=== PATIENT | female | born 1980 | race African-American/Black ===

== ENCOUNTER 2018-11-01 04:20 | Emergency (ER) | payer OTHER ==
[~2018-11-01] VITALS: Ht 167.6 cm; Wt 61.4 kg
[~2018-11-01 04:20] MED LIST: BACT800T5 PO; WOMETAB4 PO
[2018-11-01 06:43] LABS: BASO % 0.5 % (0.0-1.0); EOS # 0.1 10^3/uL (0.0-0.50); EOS % 1.5 % (0.0-3.0); HEMATOCRIT 36.1 % (36.0-47.0); HEMOGLOBIN 11.8 g/dl (12.0-15.5); LYMPH # 1.7 10^3/uL (1.5-4.5); LYMPH % 27.7 % (24.0-44.0); MEAN CORPUSCULAR HEMOGLOBIN 29.9 pg (27.0-33.0); MEAN CORPUSCULAR HGB CONC 32.7 g/dl (32.0-36.5); MEAN CORPUSCULAR VOLUME 91.6 fl (80.0-96.0); MONO # 0.5 10^3/uL (0.0-0.8); MONO % 8.2 % (0.0-5.0); NEUTROPHILS # 3.7 10^3/uL (1.8-7.7); NEUTROPHILS % 61.8 % (36.0-66.0); PLATELET COUNT, AUTOMATED 242 10^3/uL (150-450); RED BLOOD COUNT 3.94 10^6/uL (4.00-5.40)
[2018-11-01] MEDS ORDERED: NS 1,000 ML IV ONE (06:45)
[2018-11-01 07:10] LABS: HCG, SERUM QUALITATIVE NEGATIVE (NEGATIVE)
[2018-11-01 07:17] LABS: BLOOD UREA NITROGEN 11 MG/DL (7-18); CALCIUM LEVEL 9.1 MG/DL (8.5-10.1); CARBON DIOXIDE LEVEL 28 MEQ/L (21-32); CHLORIDE LEVEL 101 MEQ/L (98-107); CREATININE FOR GFR 1.07 MG/DL (0.55-1.30); FREE T4 1.07 NG/DL (0.76-1.46); GLOMERULAR FILTRATION RATE > 60.0 (>60); GLUCOSE, FASTING 101 MG/DL (70-100); POTASSIUM SERUM 3.6 MEQ/L (3.5-5.1); SODIUM LEVEL 137 MEQ/L (136-145)
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
[2018-11-01 08:28] LABS: AMPHETAMINES LEVEL URINE NEGATIVE (NEGATIVE); BARBITURATES URINE NEGATIVE (NEGATIVE); BENZODIAZEPINES URINE NEGATIVE (NEGATIVE); CANNABINOIDS URINE NEGATIVE (NEGATIVE); COCAINE METABOLITE URINE POSITIVE (NEGATIVE); METHADONE URINE NEGATIVE (NEGATIVE); OPIATES URINE NEGATIVE (NEGATIVE); PHENCYCLIDINE URINE NEGATIVE (NEGATIVE)
[2018-11-01 08:36] VITALS: BP 102/68
--- NOTE | 2018-11-01 11:29 | ECGEPIP ---
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
--- NOTE | 2018-11-01 12:55 | REP ---
Chest x-ray: Two views. History: Syncope . Comparison study: September 10, 2014 . Findings: The lungs are well inflated and free of infiltrate. The pleural angles are sharp. The heart size is normal. Pulmonary vasculature is not increased. No significant bony abnormality is seen. Impression: Negative chest x-ray. Electronically Signed by Quinn Brooks MD 11/01/2018 07:31 A
== END 2018-11-01 08:38 | disposition home or self-care (01) ==
LOC: M ED 04:20
DX: R55 Syncope and collapse (principal); Z91.018 Allergy to other foods; Z91.040 Latex allergy status

== ENCOUNTER 2020-01-01 06:34 | Day surgery (SDC) | payer OTHER ==
[2020-01-01] VITALS (8 sets, daily range): BP systolic 102–118; BP diastolic 58–75
[~2020-01-01] VITALS: Ht 167.6 cm; Wt 60.2 kg
[2020-01-01 06:50] LABS: BASO % 0.7 % (0.0-1.0); EOS # 0.2 10^3/uL (0.0-0.5); EOS % 4.5 % (0.0-3.0); HEMATOCRIT 31.5 % (36.0-47.0); HEMOGLOBIN 10.5 g/dl (12.0-15.5); LYMPH # 1.1 10^3/uL (1.5-5.0); LYMPH % 24.2 % (24.0-44.0); MEAN CORPUSCULAR HGB CONC 33.3 g/dl (32.0-36.5); MONO # 0.9 10^3/uL (0.0-0.8); MONO % 19.7 % (0.0-5.0); NEUTROPHILS # 2.3 10^3/uL (1.5-8.5); NEUTROPHILS % 50.7 % (36.0-66.0); PLATELET COUNT, AUTOMATED 305 10^3/uL (150-450); WHITE BLOOD COUNT 4.5 10^3/uL (4.0-10.0)
[2020-01-01 07:06] LABS: INR 1.05; PARTIAL THROMBOPLASTIN TIME 26.3 SECONDS (25.0-38.4); PROTHROMBIN TIME 13.4 SECONDS (11.8-14.0)
[2020-01-01] MEDS ORDERED: MIDAZOLAM INJ 2 MG/2 ML VIAL (J2250) As Ordered ONE (07:21)
[2020-01-01] MEDS ORDERED: ONDANSETRON 4MG/2ML VIAL (J2405) As Ordered ONE ×2 (07:21→08:37)
[2020-01-01] MEDS ORDERED: MORPHINE 4 MG/ML 1ML VIAL/SYRINGE (J2270) As Ordered ONE (07:21)
[2020-01-01 07:23] LABS: HCG, SERUM QUALITATIVE NEGATIVE (NEGATIVE)
[2020-01-01 07:27] LABS: ALBUMIN 3.7 GM/DL (3.2-5.2); ALT/SGPT 20 U/L (12-78); BILIRUBIN,DIRECT < 0.1 MG/DL (0.0-0.2); BILIRUBIN,TOTAL 0.2 MG/DL (0.2-1.0); BLOOD UREA NITROGEN 13 MG/DL (7-18); CALCIUM LEVEL 8.6 MG/DL (8.5-10.1); CARBON DIOXIDE LEVEL 28 MEQ/L (21-32); CHLORIDE LEVEL 105 MEQ/L (98-107); CREATININE FOR GFR 1.02 MG/DL (0.55-1.30); GLOMERULAR FILTRATION RATE > 60.0 (>60); GLUCOSE, FASTING 99 MG/DL (70-100); POTASSIUM SERUM 4.1 MEQ/L (3.5-5.1); SODIUM LEVEL 139 MEQ/L (136-145); TOTAL PROTEIN 7.8 GM/DL (6.4-8.2)
[2020-01-01] MEDS ORDERED: ISOVUE-370 76% 100ML VIAL (Q9967) As Ordered ONE (07:29)
[2020-01-01] MEDS ORDERED: ONDANSETRON 4MG/2ML VIAL (J2405) IV ONE (07:30)
[2020-01-01] MEDS ORDERED: MORPHINE 4 MG/ML 1ML VIAL/SYRINGE (J2270) IV ONE (07:30)
--- NOTE | 2020-01-01 07:42 | REP ---
Portable chest, 07:19 a.m., single AP view with the patient semi upright: Comparison is the PA and lateral chest dated 11/01/2018. The lung granados are clear. The cardiac size is normal. The low, mediastinum, and skeletal structures are unremarkable. Impression: Negative portable chest. There is no interval change. Electronically Signed by Ernesto Eng MD 01/01/2020 07:32 A
[2020-01-01] MEDS ORDERED: ceFAZolin 1GM INJ (J0690 PER 500MG) As Ordered ONE (07:55)
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
[2020-01-01] MEDS ORDERED: LIDOCAINE W/EPINEPHRINE 1% 20ML VIAL As Ordered ONE (08:19)
[2020-01-01] MEDS ORDERED: BUPIVACAINE LIPOSOME/PF 1.3% 20ML VIAL (13.3MG/ML)(EXPAREL)(C9290 PER1MG) As Ordered ONE (08:19)
[2020-01-01] MEDS ORDERED: PHENYLEPHRINE INJ 10MG/ML VIAL (J2370) As Ordered ONE (08:20)
[2020-01-01] MEDS ORDERED: SUGAMMADEX SODIUM 500 MG/5 ML VIAL (BRIDION) As Ordered ONE (08:31)
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
[2020-01-01] MEDS ORDERED: LIDOCAINE 2% INJ 100 MG/5 ML SDV (FOR ANES.) As Ordered ONE (08:37)
[2020-01-01] MEDS ORDERED: propofoL 200 MG/20 ML VIAL As Ordered ONE (08:37)
[2020-01-01] MEDS ORDERED: dexameTHASONE 4 MG/ML 1ML VIAL (J1100) As Ordered ONE (08:37)
[2020-01-01] MEDS ORDERED: ROCURONIUM BROMIDE 50 MG/5 ML VIAL As Ordered ONE (08:37)
[2020-01-01] MEDS ORDERED: HYDROmorphone HCL 2 MG/ML 1ML VIAL (J1170) As Ordered ONE (08:42)
[2020-01-01] MEDS ORDERED: ONDANSETRON 4MG/2ML VIAL (J2405) IV PRN ×2 (08:45→09:45)
[2020-01-01] MEDS ORDERED: ULTRACET TAB PO PRN (08:45)
[2020-01-01] MEDS ORDERED: traMADol 50 MG TAB PO PRN (08:45)
[2020-01-01] MEDS ORDERED: fentaNYL 250 MCG/5 ML INJECTION (J3010) As Ordered ONE (08:50)
[2020-01-01] MEDS ORDERED: ESMOLOL INJ 100MG/10ML VIAL As Ordered ONE (08:59)
[2020-01-01] MEDS: ceFAZolin SOD 1 GM in D5W MINI-BAG PLUS 50 ML IV SCH ×2 (09:00→16:31)
[2020-01-01 09:38] LABS: ABG BASE EXCESS -4.9 (-2.0-2.0); ABG HCO3 22.6 MEQ/L (22.0-26.0); ABG O2 LITER FLOW 10; ABG O2 SATURATION 99.4 % (95.0-99.0); ABG PARTIAL PRESSURE O2 370.6 mmHg (75.0-100.0); ABG PATIENT RESP RATE 16 /MIN; ABG SITE ART LINE; ABG STANDARD HCO3 20.5 MEQ/L (22.0-26.0); ABG TOTAL CO2 24.2 MEQ/L (22.0-29.0); ABG pH (ARTERIAL) 7.247 UNITS (7.350-7.450)
[2020-01-01] MEDS ORDERED: LR 1,000 ML IV SCH (09:45)
[2020-01-01] MEDS ORDERED: fentaNYL 100 MCG/2 ML INJECTION (J3010) IV PRN (09:45)
[2020-01-01] MEDS ORDERED: oxyCODONE 5MG TAB PO PRN (09:45)
[2020-01-01] MEDS ORDERED: HYDROMORPHONE HCL 0.5 MG/ 0.5 ML SYRINGE (J1170 PER 1) IV PRN (09:45)
[2020-01-01 09:48] LABS: HEMATOCRIT 30.2 % (36.0-47.0); HEMOGLOBIN 9.9 g/dl (12.0-15.5); MEAN CORPUSCULAR HEMOGLOBIN 29.9 pg (27.0-33.0); MEAN CORPUSCULAR HGB CONC 32.8 g/dl (32.0-36.5); MEAN CORPUSCULAR VOLUME 91.2 fl (80.0-96.0); PLATELET COUNT, AUTOMATED 218 10^3/uL (150-450); RED BLOOD COUNT 3.31 10^6/uL (4.00-5.40); WHITE BLOOD COUNT 6.2 10^3/uL (4.0-10.0)
[2020-01-01] MEDS ORDERED: SODIUM BICARBONATE 8.4% INJ 50 ML SYRINGE IV ONE (10:15)
[2020-01-01] MEDS: KETOROLAC 30 MG/ML VIAL (J1885) IV SCH ×3 (10:30→20:00)
[2020-01-01] MEDS: POLYTRIM OPTH DROPS 10ML OS SCH ×5 (12:00→22:29)
[2020-01-01] MEDS: PANTOPRAZOLE 40MG INJ (PROTONIX) (C9113) IV SCH (12:25)
[2020-01-01] MEDS: D5W/LR 1,000 ML IV SCH ×2 (12:25→18:40)
[2020-01-01] MEDS: NORCO, ANEXSIA 5/325MG TABLET (HYDROcodone/ACETAMINOPHEN) PO PRN ×2 (13:21→19:57)
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
[2020-01-02] VITALS (7 sets, daily range): BP systolic 105–134; BP diastolic 61–93
[2020-01-02] MEDS: ceFAZolin SOD 1 GM in D5W MINI-BAG PLUS 50 ML IV SCH ×3 (01:01→16:30)
[2020-01-02] MEDS: D5W/LR 1,000 ML IV SCH ×2 (01:01→08:41)
[2020-01-02] MEDS: KETOROLAC 30 MG/ML VIAL (J1885) IV SCH ×4 (03:19→21:55)
[2020-01-02] MEDS: NORCO, ANEXSIA 5/325MG TABLET (HYDROcodone/ACETAMINOPHEN) PO PRN ×3 (05:06→23:29)
[2020-01-02] MEDS: POLYTRIM OPTH DROPS 10ML OS SCH ×6 (05:47→21:56)
[2020-01-02 06:06] LABS: HEMATOCRIT 28.3 % (36.0-47.0); HEMOGLOBIN 9.3 g/dl (12.0-15.5); MEAN CORPUSCULAR HEMOGLOBIN 29.6 pg (27.0-33.0); MEAN CORPUSCULAR HGB CONC 32.9 g/dl (32.0-36.5); MEAN CORPUSCULAR VOLUME 90.1 fl (80.0-96.0); PLATELET COUNT, AUTOMATED 224 10^3/uL (150-450); RED BLOOD COUNT 3.14 10^6/uL (4.00-5.40); WHITE BLOOD COUNT 5.2 10^3/uL (4.0-10.0)
[2020-01-02 06:26] LABS: BLOOD UREA NITROGEN 10 MG/DL (7-18); CALCIUM LEVEL 7.9 MG/DL (8.5-10.1); CARBON DIOXIDE LEVEL 26 MEQ/L (21-32); CHLORIDE LEVEL 112 MEQ/L (98-107); CREATININE FOR GFR 0.82 MG/DL (0.55-1.30); GLOMERULAR FILTRATION RATE > 60.0 (>60); GLUCOSE, FASTING 129 MG/DL (70-100); POTASSIUM SERUM 3.2 MEQ/L (3.5-5.1); SODIUM LEVEL 143 MEQ/L (136-145)
[2020-01-02] MEDS: PANTOPRAZOLE 40MG INJ (PROTONIX) (C9113) IV SCH (08:41)
[2020-01-02] MEDS ORDERED: POTASSIUM CHLORIDE 10 MEQ SR TABLET PO ONE (09:30)
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
--- NOTE | 2020-01-02 11:06 | IPN ---
DATE: 01/02/2020 The patient seems to be doing well overnight. From her standpoint, she has not had any bleeding from the incision site. Her pain has been well-controlled with minimal pain medication. Overall, she has had some minimal discomfort at the trocar site and this was the only site that I did not place some Exparel around, just around the right flank area. In any case, the patient has been tolerating a regular diet, has been up out of bed and using the bathroom. She does have treatment for her conjunctivitis/left eye infection, that she stated feels a lot better than it was. In any case, she put a bandage over the area so she would not poke at the eye or rub the eye, but otherwise seems to be making some good progress. From a general surgery standpoint, I do feel that it is reasonable that she could be discharged when she has an available person at home to just assist her with the daily activities of living for the next couple days and will see if that will be later on today or it may actually be tomorrow. In any case, will try arrange for her discharge as soon as possible. I do not feel that she needs to continue on antibiotics after discharge. She will otherwise continue on minimal pain medications on discharge with some Aleve and [place].
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
[2020-01-02] MEDS ORDERED: guaiFENesin DM LIQ 10ML UD PO PRN (16:15)
[2020-01-02] MEDS: IPRATROPIUM 0.5MG/ALBUTEROL 2.5MG INH SOL UD 3ML (DUONEB)(J7620) NEB SCH ×2 (17:11→20:07)
[2020-01-03] MEDS: ceFAZolin SOD 1 GM in D5W MINI-BAG PLUS 50 ML IV SCH ×3 (01:04→16:47)
[2020-01-03 02:00] VITALS: BP 117/79
[2020-01-03] MEDS: KETOROLAC 30 MG/ML VIAL (J1885) IV SCH ×4 (03:32→21:43)
[2020-01-03] MEDS ORDERED: ACETAMINOPHEN 500 MG TAB PO ONE (04:00)
[2020-01-03 05:37] LABS: HEMATOCRIT 29.8 % (36.0-47.0); HEMOGLOBIN 9.7 g/dl (12.0-15.5); MEAN CORPUSCULAR HEMOGLOBIN 30.1 pg (27.0-33.0); MEAN CORPUSCULAR HGB CONC 32.6 g/dl (32.0-36.5); MEAN CORPUSCULAR VOLUME 92.5 fl (80.0-96.0); PLATELET COUNT, AUTOMATED 211 10^3/uL (150-450); RED BLOOD COUNT 3.22 10^6/uL (4.00-5.40); WHITE BLOOD COUNT 5.4 10^3/uL (4.0-10.0)
[2020-01-03 06:00] VITALS: BP 107/69
[2020-01-03 06:05] LABS: ALBUMIN 2.7 GM/DL (3.2-5.2); ALT/SGPT 13 U/L (12-78); BILIRUBIN,TOTAL 0.2 MG/DL (0.2-1.0); BLOOD UREA NITROGEN 6 MG/DL (7-18); CALCIUM LEVEL 8.1 MG/DL (8.5-10.1); CARBON DIOXIDE LEVEL 28 MEQ/L (21-32); CHLORIDE LEVEL 104 MEQ/L (98-107); CREATININE FOR GFR 0.87 MG/DL (0.55-1.30); GLOMERULAR FILTRATION RATE > 60.0 (>60); GLUCOSE, FASTING 92 MG/DL (70-100); POTASSIUM SERUM 3.8 MEQ/L (3.5-5.1); SODIUM LEVEL 137 MEQ/L (136-145)
[2020-01-03] MEDS: POLYTRIM OPTH DROPS 10ML OS SCH ×6 (06:18→21:44)
[2020-01-03] MEDS: IPRATROPIUM 0.5MG/ALBUTEROL 2.5MG INH SOL UD 3ML (DUONEB)(J7620) NEB SCH ×4 (09:15→20:02)
[2020-01-03] MEDS: PANTOPRAZOLE 40MG INJ (PROTONIX) (C9113) IV SCH (09:41)
[2020-01-03] MEDS: GASTROGRAFIN SOLUTION 30ML PO SCH ×2 (09:41→10:49)
--- NOTE | 2020-01-03 09:54 | REP ---
CHEST: Two views. There is no evidence of acute infiltrate. No pleural effusion is seen. The heart is normal in size. The mediastinal silhouette is unremarkable. The visualized osseous structures are intact. IMPRESSION: No acute pulmonary disease. Electronically Signed by Ernesto Barrios MD 01/03/2020 06:35 P
[2020-01-03 10:00] VITALS: BP 111/73
[2020-01-03] MEDS ORDERED: ISOVUE-370 76% 100ML VIAL (Q9967) As Ordered ONE (11:44)
[2020-01-03 14:00] VITALS: BP 113/75
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
[2020-01-03] MEDS: NORCO, ANEXSIA 5/325MG TABLET (HYDROcodone/ACETAMINOPHEN) PO PRN (18:09)
[2020-01-03 22:00] VITALS: BP 108/70
[2020-01-04] MEDS: ceFAZolin SOD 1 GM in D5W MINI-BAG PLUS 50 ML IV SCH ×2 (00:55→08:46)
[2020-01-04 02:00] VITALS: BP 118/83
[2020-01-04] MEDS: NORCO, ANEXSIA 5/325MG TABLET (HYDROcodone/ACETAMINOPHEN) PO PRN (02:27)
[2020-01-04] MEDS: KETOROLAC 30 MG/ML VIAL (J1885) IV SCH ×3 (03:43→15:00)
[2020-01-04 06:00] VITALS: BP 121/83
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
[2020-01-04] MEDS: POLYTRIM OPTH DROPS 10ML OS SCH ×4 (06:42→15:50)
[2020-01-04] MEDS: IPRATROPIUM 0.5MG/ALBUTEROL 2.5MG INH SOL UD 3ML (DUONEB)(J7620) NEB SCH ×2 (07:43→11:45)
[2020-01-04] MEDS: PANTOPRAZOLE 40MG INJ (PROTONIX) (C9113) IV SCH (08:45)
[2020-01-04 10:00] VITALS: BP 118/79
[2020-01-04] MEDS ORDERED: IBUP-1022 PO (10:24)
[2020-01-04] MEDS ORDERED: TRAM37.53 PO (10:24)
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
== END 2020-01-04 16:06 | disposition home or self-care (01) ==
LOC: M ED 06:34 → M SDC 06:35 → M ED 08:01 → M PCU 11:54 → M MSPAV 01-02 11:10 → M SDC 01-04 16:06
PROVIDERS: ATTEND Surgery
DX: S31.619A Laceration without foreign body of abdominal wall, unspecified quadrant with penetration into peritoneal cavity, initial encounter (principal); T79.4XXA Traumatic shock, initial encounter; X99.1XXA Assault by knife, initial encounter; Y93.9 Activity, unspecified; Y99.9 Unspecified external cause status; Z91.040 Latex allergy status; Z91.010 Allergy to peanuts; Y92.89 Other specified places as the place of occurrence of the external cause
CPT/HCPCS: 20102; 36415; 49320; 71045; 71046; 80048; 80053; 80076; 81001; 82330; 82803; 82947; 84132; 84295; 84702; 84703; 85014; 85025; 85027; 85610; 85730; 86850; 86900; 86901; 86920; 94640; 96361; 96365; 96366; 96375; 96376; 99284; C9113; C9290; J0690; J1100; J1170; J1885; J2250; J2270; J2370; J2405; J3010; Q9963; Q9967

== ENCOUNTER 2020-01-23 05:14 | Emergency (ER) | payer OTHER ==
[~2020-01-23] VITALS: Ht 167.6 cm; Wt 60.1 kg
[~2020-01-23 05:14] MED LIST changes: +IBUP-1022 PO; +TRAM37.53 PO
[2020-01-23 05:42] LABS: BASO % 0.4 % (0.0-1.0); EOS # 0.2 10^3/uL (0.0-0.5); EOS % 3.2 % (0.0-3.0); HEMATOCRIT 33.2 % (36.0-47.0); HEMOGLOBIN 10.8 g/dl (12.0-15.5); LYMPH # 1.8 10^3/uL (1.5-5.0); LYMPH % 26.7 % (24.0-44.0); MEAN CORPUSCULAR HEMOGLOBIN 29.8 pg (27.0-33.0); MEAN CORPUSCULAR HGB CONC 32.5 g/dl (32.0-36.5); MEAN CORPUSCULAR VOLUME 91.7 fl (80.0-96.0); MONO # 0.8 10^3/uL (0.0-0.8); MONO % 11.8 % (0.0-5.0); NEUTROPHILS # 3.9 10^3/uL (1.5-8.5); NEUTROPHILS % 57.3 % (36.0-66.0); PLATELET COUNT, AUTOMATED 309 10^3/uL (150-450); RED BLOOD COUNT 3.62 10^6/uL (4.00-5.40); WHITE BLOOD COUNT 6.8 10^3/uL (4.0-10.0)
[2020-01-23] MEDS ORDERED: NS 1,000 ML IV ONE ×2 (05:45→07:15)
--- NOTE | 2020-01-23 05:57 | REPVR ---
PROCEDURE INFORMATION: Exam: CT Head Without Contrast Exam date and time: 01/23/2020 5:35 AM Age: 39 years old Clinical indication: Altered mental status/memory loss; Other: Od; Additional info: AMS TECHNIQUE: Imaging protocol: Computed tomography of the head without contrast. Radiation optimization: All CT scans at this facility use at least one of these dose optimization techniques: automated exposure control; mA and/or kV adjustment per patient size (includes targeted exams where dose is matched to clinical indication); or iterative reconstruction. COMPARISON: CT Head without contrast 11/01/2018 7:08 AM FINDINGS: Brain: Minimal right basal ganglia calcification. Ventricles: Normal. No ventriculomegaly. Bones/joints: Unremarkable. No acute fracture. Sinuses: Visualized sinuses are unremarkable. No fluid levels. Mastoid air cells: Visualized mastoid air cells are well aerated. Soft tissues: Unremarkable. IMPRESSION: Negative noncontrast head CT without change from 11/01/2018. Electronically signed by: Sergio Chu On 01/23/2020 05:56:57 AM
--- NOTE | 2020-01-23 05:59 | REPVR ---
PROCEDURE INFORMATION: Exam: CT Cervical Spine Without Contrast Exam date and time: 01/23/2020 5:35 AM Age: 39 years old Clinical indication: Other: Od AMS TECHNIQUE: Imaging protocol: Computed tomography images of the cervical spine without contrast. Radiation optimization: All CT scans at this facility use at least one of these dose optimization techniques: automated exposure control; mA and/or kV adjustment per patient size (includes targeted exams where dose is matched to clinical indication); or iterative reconstruction. COMPARISON: CT Spine,cervical w/o contrast 11/01/2018 7:08 AM FINDINGS: Vertebrae: No acute fracture. Normal alignment. Discs/Spinal canal/Neural foramina: No disc herniations. No spinal canal stenosis. No neural foraminal narrowing. Soft tissues: Unremarkable. Lungs: Lung apices are normal. IMPRESSION: Negative CT cervical spine with little change from 11/01/2018. No fracture or subluxation is evident and no spinal or foraminal stenosis. Electronically signed by: Sergio Chu On 01/23/2020 05:58:45 AM
[2020-01-23 06:03] LABS: ALT/SGPT 62 U/L (12-78); BILIRUBIN,DIRECT 0.2 MG/DL (0.0-0.2); BILIRUBIN,TOTAL 0.4 MG/DL (0.2-1.0); BLOOD UREA NITROGEN 11 MG/DL (7-18); CALCIUM LEVEL 8.7 MG/DL (8.5-10.1); CARBON DIOXIDE LEVEL 24 MEQ/L (21-32); CHLORIDE LEVEL 107 MEQ/L (98-107); CK-MB VALUE MASS 1.1 NG/ML (<3.6); CPK CREATINE PHOSPHOKINASE 315 U/L (26-192); ETHYL ALCOHOL (ETHANOL) < 0.003 % (0.000-0.010); GLOMERULAR FILTRATION RATE > 60.0 (>60); GLUCOSE, FASTING 78 MG/DL (70-100); MB/CK RELATIVE INDEX 0.35 (< OR =4); POTASSIUM SERUM 3.6 MEQ/L (3.5-5.1); SODIUM LEVEL 140 MEQ/L (136-145); TOTAL PROTEIN 7.7 GM/DL (6.4-8.2); TROPONIN I < 0.02 NG/ML (< 0.10)
[2020-01-23 07:08] LABS: AMPHETAMINES LEVEL URINE POSITIVE (NEGATIVE); BARBITURATES URINE NEGATIVE (NEGATIVE); BENZODIAZEPINES URINE NEGATIVE (NEGATIVE); CANNABINOIDS URINE NEGATIVE (NEGATIVE); COCAINE METABOLITE URINE POSITIVE (NEGATIVE); METHADONE URINE NEGATIVE (NEGATIVE); OPIATES URINE NEGATIVE (NEGATIVE); PHENCYCLIDINE URINE NEGATIVE (NEGATIVE)
--- NOTE | 2020-01-23 08:00 | REP ---
Portable chest x-ray: Sitting AP view. History: Overdose. Comparison chest x-ray: January 03, 2020. Findings: Monitoring electrodes are seen. The lungs are well inflated and clear. Pleural angles are sharp. Heart is not enlarged. Pulmonary vasculature is not increased. Impression: No acute disease. Electronically Signed by Quinn Brooks MD 01/23/2020 07:51 A
[2020-01-23 14:29] VITALS: BP 120/83
--- NOTE | 2020-01-23 18:42 | ECGEPIP ---
[facility] - ED Test Date: 2020-01-23 Pat Name: ENRRIQUE YAO Department: Room: - Gender: Female Vp Public Relations: ANGELITA : 1980 Requested By: RUBEN ALVARADO Order Number: [id number] Reading MD: Dana Singh Measurements Intervals [place] Rate: 98 P: 76 IA: 144 QRS: 70 QRSD: 90 T: 52 QT: 395 QTc: 505 Interpretive Statements SINUS RHYTHM MODERATE VOLTAGE CRITERIA FOR LVH, CONSIDER NORMAL VARIANT Prolonged QT interval, CLINICAL CORRELATION Electronically Signed on 01-23-2020 18:42:18 EDT by Dana Singh
== END 2020-01-23 15:08 | disposition home or self-care (01) ==
LOC: M ED 05:14
DX: F14.10 Cocaine abuse, uncomplicated (principal); Z60.9 Problem related to social environment, unspecified; D64.9 Anemia, unspecified; Z91.018 Allergy to other foods; Z91.040 Latex allergy status
CPT/HCPCS: 70450; 71045; 72125; 80048; 80076; 80307; 82550; 82553; 85025; 93005; 93041; 94760; 96360; 96361; 99285; G0480

== ENCOUNTER 2020-06-11 08:12 | Emergency (ER) | payer OTHER ==
[2020-06-11] MEDS ORDERED: NITROGLYCERIN 0.4 MG SUBL TABLET As Ordered ONE (08:32)
[2020-06-11] MEDS ORDERED: NITROGLYCERIN 0.4 MG SUBL TABLET ONE (08:32)
[2020-06-11] MEDS ORDERED: KETOROLAC 30 MG/ML 1ML VIAL ONE (10:10)
[2020-06-11] MEDS ORDERED: KETOROLAC 30 MG/ML 1ML VIAL As Ordered ONE (10:10)
[2020-07-25 15:48] LABS: BASO % 0.4 % (0.0-1.0); EOS # 0.5 10^3/uL (0.0-0.5); EOS % 7.2 % (0.0-3.0); HEMATOCRIT 34.7 % (36.0-47.0); HEMOGLOBIN 11.4 g/dl (12.0-15.5); LYMPH # 0.9 10^3/uL (1.5-5.0); LYMPH % 12.8 % (24.0-44.0); MEAN CORPUSCULAR HEMOGLOBIN 30.2 pg (27.0-33.0); MEAN CORPUSCULAR HGB CONC 32.9 g/dl (32.0-36.5); MONO # 0.7 10^3/uL (0.0-0.8); MONO % 9.9 % (0.0-5.0); NEUTROPHILS # 5.1 10^3/uL (1.5-8.5); NEUTROPHILS % 69.4 % (36.0-66.0); PLATELET COUNT, AUTOMATED 288 10^3/uL (150-450); RED BLOOD COUNT 3.77 10^6/uL (4.00-5.40); WHITE BLOOD COUNT 7.4 10^3/uL (4.0-10.0)
--- NOTE | 2020-07-26 10:40 | REP ---
PORTABLE CHEST X-RAY: SINGLE VIEW. HISTORY: Unknown. NOTE: This report is delayed due to a malware attack on this facility. FINDINGS: The lungs are well-inflated and clear. The pleural angles are sharp. Heart size is normal. Pulmonary vasculature is not increased. No significant bony abnormality is seen. Monitoring electrodes are noted. IMPRESSION: No active disease. MTDD
[2020-08-30 12:14] LABS: ALBUMIN 3.4 GM/DL (3.2-5.2); ALT/SGPT 51 U/L (12-78); BILIRUBIN,TOTAL 0.4 MG/DL (0.2-1.0); BLOOD UREA NITROGEN 10 MG/DL (7-18); CALCIUM LEVEL 8.9 MG/DL (8.5-10.1); CARBON DIOXIDE LEVEL 29 MEQ/L (21-32); CHLORIDE LEVEL 105 MEQ/L (98-107); CK-MB VALUE MASS < 1.0 NG/ML (<3.6); CPK CREATINE PHOSPHOKINASE 249 U/L (26-192); CREATININE FOR GFR 1.06 MG/DL (0.55-1.30); GLOMERULAR FILTRATION RATE > 60.0 (>60); GLUCOSE, FASTING 91 MG/DL (70-100); POTASSIUM SERUM 3.6 MEQ/L (3.5-5.1); SODIUM LEVEL 140 MEQ/L (136-145); TOTAL PROTEIN 7.5 GM/DL (6.4-8.2); TROPONIN I < 0.02 NG/ML (< 0.10)
== END 2020-06-11 12:10 | disposition left against medical advice (07) ==
LOC: M ED 08:12
DX: R07.9 Chest pain, unspecified (principal); F19.10 Other psychoactive substance abuse, uncomplicated; Z53.9 Procedure and treatment not carried out, unspecified reason; D64.9 Anemia, unspecified; Z91.040 Latex allergy status
CPT/HCPCS: 71045; 80053; 82553; 85025; 96374; 99284; J1885

== ENCOUNTER 2020-10-29 16:35 | Emergency (ER) | payer OTHER ==
[~2020-10-29] VITALS: Ht 167.6 cm; Wt 63.6 kg
[2020-10-29] MEDS ORDERED: NS 1,000 ML IV ONE ×2 (17:00→20:15)
[2020-10-29 17:23] LABS: VENOUS BASE EXCESS 0.9 (-2.0-2.0); VENOUS O2 SATURATION 67.4 % (60.0-80.0); VENOUS PARTIAL PRESSURE CO2 56.1 mmHg (38.0-50.0); VENOUS PARTIAL PRESSURE O2 38.4 mmHg (30.0-50.0); VENOUS PH 7.316 UNITS (7.330-7.430); VENOUS STANDARD HCO3 24.7 MEQ/L; VENOUS TOTAL CO2 29.7 MEQ/L (24.0-28.0)
[2020-10-29 17:33] LABS: BASO % 0.5 % (0.0-1.0); EOS # 0.6 10^3/uL (0.0-0.5); EOS % 10.7 % (0.0-3.0); HEMATOCRIT 35.3 % (36.0-47.0); HEMOGLOBIN 11.7 g/dl (12.0-15.5); LYMPH # 1.7 10^3/uL (1.5-5.0); LYMPH % 29.5 % (24.0-44.0); MEAN CORPUSCULAR HEMOGLOBIN 30.2 pg (27.0-33.0); MEAN CORPUSCULAR HGB CONC 33.1 g/dl (32.0-36.5); MEAN CORPUSCULAR VOLUME 91.2 fl (80.0-96.0); MONO # 0.9 10^3/uL (0.0-0.8); NEUTROPHILS # 2.5 10^3/uL (1.5-8.5); PLATELET COUNT, AUTOMATED 311 10^3/uL (150-450); RED BLOOD COUNT 3.87 10^6/uL (4.00-5.40); WHITE BLOOD COUNT 5.9 10^3/uL (4.0-10.0)
[2020-10-29] MEDS ORDERED: DEXTROSE 50% 50 ML SYRINGE As Ordered ONE (17:38)
[2020-10-29 18:20] LABS: ACETAMINOPHEN LEVEL < 2.0 UG/ML (10.0-30.0); ALBUMIN 3.6 GM/DL (3.2-5.2); ALT/SGPT 31 U/L (12-78); BILIRUBIN,DIRECT 0.1 MG/DL (0.0-0.2); BILIRUBIN,TOTAL 0.3 MG/DL (0.2-1.0); BLOOD UREA NITROGEN 11 MG/DL (7-18); CALCIUM LEVEL 8.8 MG/DL (8.5-10.1); CARBON DIOXIDE LEVEL 30 MEQ/L (21-32); CHLORIDE LEVEL 105 MEQ/L (98-107); CREATININE FOR GFR 1.18 MG/DL (0.55-1.30); ETHYL ALCOHOL (ETHANOL) < 0.003 % (0.000-0.010); GLOMERULAR FILTRATION RATE > 60.0 (>60); GLUCOSE, FASTING 53 MG/DL (70-100); POTASSIUM SERUM 3.3 MEQ/L (3.5-5.1); SALICYLATE LEVEL < 1.7 MG/DL (5.0-30.0); SODIUM LEVEL 141 MEQ/L (136-145); TOTAL PROTEIN 7.9 GM/DL (6.4-8.2); TROPONIN I < 0.02 NG/ML (< 0.10)
[2020-10-29 18:21] LABS: HCG, SERUM QUALITATIVE NEGATIVE (NEGATIVE)
--- NOTE | 2020-10-29 18:42 | ECGEPIP ---
[facility] - ED Test Date: 2020-10-29 Pat Name: ENRRIQUE YAO Department: Room: - Gender: Female Prospecting Observer: nerissa : 1980 Requested By: JIMI COLLINS Order Number: [id number] Reading MD: Dana Singh Measurements Intervals [place] Rate: 93 P: 85 NC: 135 QRS: 82 QRSD: 85 T: 62 QT: 384 QTc: 480 Interpretive Statements SINUS RHYTHM NONSPECIFIC T-WAVE ABNORMALITY prolonged qtc similar 01/23/20 Electronically Signed on 10-29-2020 18:42:48 EST by Dana Singh
[2020-10-29] MEDS ORDERED: POTASSIUM CHLORIDE 10 MEQ SR TABLET PO ONE (19:00)
[2020-10-29] MEDS ORDERED: ACETAMINOPHEN TAB 650MG DOSE (2X325MG) PO ONE ×2 (19:30→19:45)
--- NOTE | 2020-10-29 20:17 | REP ---
INDICATION: Altered Mental Status COMPARISON: 06/11/2020 TECHNIQUE: Portable AP view of the chest FINDINGS: The mediastinum and cardiac silhouette are stable and within normal limits for portable technique. The lung granados are clear without acute consolidation, effusion, or pneumothorax. Skeletal structures are intact. IMPRESSION: No acute cardiopulmonary process appreciated. <Electronically signed by Matteo Jenkins > 10/29/202012
[2020-10-29 21:09] LABS: AMPHETAMINES LEVEL URINE POSITIVE (NEGATIVE); BARBITURATES URINE NEGATIVE (NEGATIVE); BENZODIAZEPINES URINE NEGATIVE (NEGATIVE); CANNABINOIDS URINE NEGATIVE (NEGATIVE); COCAINE METABOLITE URINE NEGATIVE (NEGATIVE); METHADONE URINE NEGATIVE (NEGATIVE); OPIATES URINE POSITIVE (NEGATIVE); PHENCYCLIDINE URINE NEGATIVE (NEGATIVE)
[2020-10-29 21:37] VITALS: BP 135/76
== END 2020-10-29 22:01 | disposition home or self-care (01) ==
LOC: M ED 16:35
DX: G40.89 Other seizures (principal); U07.1 COVID-19; F16.10 Hallucinogen abuse, uncomplicated; Z91.018 Allergy to other foods; Z91.040 Latex allergy status
CPT/HCPCS: 71045; 80048; 80076; 80307; 81001; 82140; 82803; 83605; 84443; 84703; 85025; 87486; 87581; 87633; 87798; 93005; 93041; 96360; 96361; 99285; G0480

== ENCOUNTER 2020-10-29 23:26 | Observation (INO) | payer OTHER ==
[~2020-10-29] VITALS: Ht 167.6 cm; Wt 63.0 kg
[2020-10-30] MEDS ORDERED: CHARCOAL ACTIVATED LIQUID 25 GM/120 ML BTL PO ONE
--- NOTE | 2020-10-30 00:47 | REPVR ---
PROCEDURE INFORMATION: Exam: XR Abdomen, 1 View Exam date and time: 10/30/2020 12:24 AM Age: 39 years old Clinical indication: Other: Foreign body TECHNIQUE: Imaging protocol: XR of the abdomen. Views: Frontal supine view of the abdomen. 1 View. COMPARISON: CT ABD/PEL W/IV ORAL CONTRAS 01/03/2020 12:18 PM FINDINGS: Gastrointestinal tract: Normal. No bowel dilation. Bones/joints: Unremarkable. Soft tissues: No radiopaque foreign bodies. IMPRESSION: No radiopaque foreign bodies. Electronically signed by: Bryant Edge On 10/30/2020 00:47:16 AM
[2020-10-30 01:50] LABS: BLOOD UREA NITROGEN 11 MG/DL (7-18); CALCIUM LEVEL 8.3 MG/DL (8.5-10.1); CARBON DIOXIDE LEVEL 26 MEQ/L (21-32); CHLORIDE LEVEL 112 MEQ/L (98-107); CREATININE FOR GFR 1.01 MG/DL (0.55-1.30); GLOMERULAR FILTRATION RATE > 60.0 (>60); GLUCOSE, FASTING 125 MG/DL (70-100); POTASSIUM SERUM 3.6 MEQ/L (3.5-5.1); SODIUM LEVEL 145 MEQ/L (136-145)
[2020-10-30] MEDS ORDERED: SENOKOT S TAB PO ONE (02:30)
[2020-10-30] MEDS ORDERED: MAGNESIUM CITRATE 300 ML BTL PO ONE ×2 (02:30→07:45)
[2020-10-30] MEDS: CHARCOAL ACTIVATED LIQUID 25 GM/120 ML BTL PO SCH ×5 (02:58→10:57)
[2020-10-30] MEDS ORDERED: METHYLNALTREXONE BROMIDE 12 MG/0.6 ML VIAL (RELISTOR) SC ONE (08:00)
[2020-10-30] MEDS ORDERED: LORazepam 2 MG/ML VIAL IV STA (08:45)
[2020-10-30] MEDS ORDERED: NS 1,000 ML IV ONE (12:45)
[2020-10-30 13:00] LABS: CPK CREATINE PHOSPHOKINASE 151 U/L (26-192)
[2020-10-30 13:42] LABS: C REACTIVE PROTEIN QUANTITATIV < 0.30 MG/DL (0.00-0.30)
--- NOTE | 2020-10-30 14:09 | HPEPDOC ---
[facility] Medical History & Physical Date of Admission Oct 30, 2020 Date of Service: Oct 30, 2020 Attending Physician: VONDA PÉREZ MD History and Physical CHIEF COMPLAINT: heroine baggies ingestion HISTORY OF PRESENT ILLNESS: 39 yo W with a history of PSUD with multiple substance who was just diagnosed with covid-19, is incarcerated and brought back by police officers reporting that she ingested 2 baggies of heroine and chewed some as well. In the ED, she was drowsy but awake on voice and poison controlled recommended activated charcoal and mag citrate until she begins having bowel movements with some charcoal and ED observation for 12 hours. Unfortunately while in the ED, she did not have a bowel movement for over 12 hours despite charcoal and mag citrate and at this point poison control recommended obs admission and continuing the activated charcoal q4H. She is otherwise hemodynamically stable, afebrile, breathing comfortably on room air and reporting abdominal discomfort without nausea or emesis. Labs showed WBC 5.9 on 10/29 with Hgb 11.7 and platelets 311. This morning Na 145, K 3.6, Cr 1.01, LFTs wnl, lactate 2.3 --> 2.1, UA wnl and an AXR that showed no radiopaque foreign objects. PAST MEDICAL HISTORY: PSUD history of positive PPD SOCIAL HISTORY: Currently under police custody PSUD and here for heroine ingestion Not able to get much history 2/2 somnolence FAMILY HISTORY: Not able to get much history 2/2 somnolence ALLERGIES: Please see below. REVIEW OF SYSTEMS: Reports abdominal discomfort currently but without chest pain. That is all I could get her to confirm. Could not complete the rest of the ROS. HOME MEDICATIONS: Please see below. PHYSICAL EXAMINATION: VITAL SIGNS: HDS, normotensive, afebrile, breathing comfortably on room air GENERAL APPEARANCE: Ill appearing, disheveled, somnolent, difficult to arouse HEENT: NCAT, no lesions or cuts, sluggish pupils, injected sclera, anicteric CARDIOVASCULAR: RRR, no m/r/g LUNGS: CTAB ABDOMEN: hypoactive sounds throughout, soft, grimaces to deep palpation throughout, no rebound, no guarding EXTREMITIES: WWP, no LE edema NEUROLOGICAL: Somnolent, sluggish pupils, arousable, moving all extremities PSYCHIATRIC: AOx3, confirmed name, , place, date. LABORATORY DATA: Summarized above. IMAGING: Summarized above. MICROBIOLOGY: Please see below. ASSESSMENT: 39 yo W with a history of PSUD with multiple substance who was just diagnosed with covid-19 on 10/29, is incarcerated and brought back by police officers reporting that she ingested 2 baggies of heroine and chewed some as well, who is being admitted for observation with ongoing activated charcoal administration until she has bowel movements confirming the charcoal and clearance. PLAN: 1. Toxic encephalopathy 2/2 heroine ingestion -activated charcola 25Q4H until BM per posion control recs -poison control consulted, appreciate recs -IVF -telemetry -q4h oxygen saturations and vitals 2. covid-19 infection -telemetry -q4h oxygen saturation and vitals -covid-19 labs per protocol, otherwise without any adjunctive therapies at this time given no hypoxemia or complaints with normal pulm exam DVT ppx: lovenox Vital Signs Vital Signs Date Time Temp Pulse Resp B/P (MAP) Pulse Ox O2 Delivery O2 Flow Rate FiO2 10/30/20 11:15 98 18 123/91 (102) 100 Room Air 10/30/20 02:59 97.1 Laboratory Data Labs 24H Laboratory Tests 2 10/30/20 01:11: Anion Gap 7L, Glomerular Filtration Rate > 60.0, Lactic Acid Level 2.3*H, Calcium Level 8.3L, Magnesium Level 2.0 10/30/20 02:55: Total Creatine Kinase 207H 10/30/20 07:41: Lactic Acid Followup at 4 Hours 2.1*H 10/30/20 12:21: Total Creatine Kinase 151 CBC/BMP Laboratory Tests 10/30/20 01:11 Home Medications No Active Prescriptions or Reported Meds Allergies Coded Allergies: Pecan (Verified Allergy, Severe, DIFFICULTY BREATHING AND THROAT CLOSES, 10/29/20) latex (Verified Allergy, Severe, hives, 10/29/20) hives and swelling A-FIB/CHADSVASC A-FIB History Current/History of A-Fib/PAF?: No Current PO Anticoag Therapy: No Age/Risk Factor Scoring CHADSVASC: CHADSVASC Response (Comments) Value Age Risk Factor Age < 65 years old 0 Gender Risk Factor Female 1 Hx of CHF No 0 Hx of HTN No 0 Hx of Stroke/TIA/or VTE No 0 Hx of Diabetes No 0 Hx of Vascular Disease No 0 Total 1 Treatment Treatment ordered: NONE Reason Anticoagulant not given: Not indicated/[id number] VONDA PÉREZ MD Oct 30, 2020 14:09
[2020-10-30 15:30] VITALS: BP 128/92
[2020-10-30] MEDS: NS 1,000 ML IV SCH ×2 (15:30→22:00)
[2020-10-30 16:00] VITALS: O2SAT 100
--- NOTE | 2020-10-30 18:18 | ECGEPIP ---
[facility] - ED Test Date: 2020-10-30 Pat Name: ENRRIQUE YAO Department: Room: - Gender: Female Test Data Developer: tstblaine : 1980 Requested By: LEYDA Srinivasan Order Number: [id number] Reading MD: Dana Singh Measurements Intervals [place] Rate: 76 P: 77 [place]: 147 QRS: 80 QRSD: 86 T: 60 QT: 397 QTc: 448 Interpretive Statements SINUS RHYTHM WITH SINUS ARRHYTHMIA DECREASED RATE/SHORTER QTC COMPARED 10/29/20 17:02 Electronically Signed on 10-30-2020 18:18:10 EST by Dana Singh
--- NOTE | 2020-10-30 18:20 | ECGEPIP ---
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
[2020-10-30 20:00] VITALS: BP 119/81; O2SAT 100
[2020-10-30] MEDS: ACETAMINOPHEN TAB 650MG DOSE (2X325MG) PO PRN (20:04)
[2020-10-31] VITALS (8 sets, daily range): BP systolic 114–138; BP diastolic 72–93; O2SAT 100
[2020-10-31 05:34] LABS: BASO % 0.5 % (0.0-1.0); EOS # 0.6 10^3/uL (0.0-0.5); EOS % 13.3 % (0.0-3.0); HEMATOCRIT 34.1 % (36.0-47.0); HEMOGLOBIN 10.3 g/dl (12.0-15.5); LYMPH # 1.5 10^3/uL (1.5-5.0); LYMPH % 36.7 % (24.0-44.0); MEAN CORPUSCULAR HEMOGLOBIN 28.1 pg (27.0-33.0); MEAN CORPUSCULAR HGB CONC 30.2 g/dl (32.0-36.5); MEAN CORPUSCULAR VOLUME 92.9 fl (80.0-96.0); MONO # 0.4 10^3/uL (0.0-0.8); MONO % 9.8 % (0.0-5.0); NEUTROPHILS # 1.7 10^3/uL (1.5-8.5); NEUTROPHILS % 39.5 % (36.0-66.0); PLATELET COUNT, AUTOMATED 300 10^3/uL (150-450); RED BLOOD COUNT 3.67 10^6/uL (4.00-5.40); WHITE BLOOD COUNT 4.2 10^3/uL (4.0-10.0)
[2020-10-31 05:42] LABS: INR 1.02; PROTHROMBIN TIME 13.6 SECONDS (12.5-14.3)
[2020-10-31 05:43] LABS: PARTIAL THROMBOPLASTIN TIME 28.3 SECONDS (24.2-38.5)
[2020-10-31 05:45] LABS: D-DIMER QUANT 1134.74 ng/ml (<500)
[2020-10-31 06:00] LABS: ALBUMIN 3.1 GM/DL (3.2-5.2); ALT/SGPT 24 U/L (12-78); BILIRUBIN,DIRECT < 0.1 MG/DL (0.0-0.2); BILIRUBIN,TOTAL 0.3 MG/DL (0.2-1.0); BLOOD UREA NITROGEN 6 MG/DL (7-18); CALCIUM LEVEL 7.9 MG/DL (8.5-10.1); CARBON DIOXIDE LEVEL 25 MEQ/L (21-32); CHLORIDE LEVEL 109 MEQ/L (98-107); CREATININE FOR GFR 0.92 MG/DL (0.55-1.30); FERRITIN 67 NG/ML (8-252); GLOMERULAR FILTRATION RATE > 60.0 (>60); GLUCOSE, FASTING 80 MG/DL (70-100); LDH LACTATE DEHYDROGENASE 135 U/L (84-246); MAGNESIUM LEVEL 2.3 MG/DL (1.8-2.4); NT-PRO BNP 18 PG/ML (<125); POTASSIUM SERUM 4.4 MEQ/L (3.5-5.1); SODIUM LEVEL 139 MEQ/L (136-145); TOTAL PROTEIN 6.7 GM/DL (6.4-8.2); TRIGLYCERIDES LEVEL 84 MG/DL (<150); TROPONIN I < 0.02 NG/ML (< 0.10)
[2020-10-31] MEDS: NS 1,000 ML IV SCH (06:38)
[2020-10-31] MEDS: ACETAMINOPHEN TAB 650MG DOSE (2X325MG) PO PRN ×2 (06:56→16:56)
[2020-10-31] MEDS: ENOXAPARIN 40MG/0.4ML SYRINGE (J1650 PER 10MG) SC SCH (09:11)
--- NOTE | 2020-10-31 14:42 | IPNPDOC ---
Text Note Date of Service The patient was seen on 10/31/20. NOTE PHYSICAL EXAMINATION: VITAL SIGNS: HDS, normotensive, afebrile, breathing comfortably on room air, however with sitting up her saturation goes to 86% before she even beginsto get up to ambulate and this is new. She also had a mild low grade high temp to 100.2. GENERAL APPEARANCE: Ill appearing, disheveled, somnolent, now waking on voice, will sit up for exam and answering questions appropriately HEENT: NCAT, no lesions or cuts, sluggish pupils, injected sclera, anicteric CARDIOVASCULAR: RRR, no m/r/g LUNGS: CTAB ABDOMEN: Normoactive sounds throughout, soft, mild TTP, no rebound, no guarding EXTREMITIES: WWP, no LE edema NEUROLOGICAL: Somnolent, PERRLA, moving all extremities PSYCHIATRIC: AOx3, confirmed name, , place, date. LABORATORY DATA: WBC 4.2 hgb 10.3 platelets 300 na 139 K 4.4 Cr 0.92 Ddimer: 624--> 1134 (on 10/31 AM labs) --> now 515 (10.31 1PM labs) CRP 0.3 Ferritin 67 proBNP 18 IMAGING: Reviewed MICROBIOLOGY: Please see below. ASSESSMENT: 39 yo W with a history of PSUD with multiple substance who was just diagnosed with covid-19 on 10/29, is incarcerated and brought back by police officers reporting that she ingested 2 baggies of heroine and chewed some as well, who was admitted for observation on activated charcoal for heroine ingestion, whose course has been c/b low grade high temp, exertional hypoxemia i/s/o active covid-19 infection. PLAN: 1. Toxic encephalopathy 2/2 heroine ingestion: improved, resolving -activated charcola 25Q4H until BM per posion control recs -poison control consulted, appreciate recs -s/p IVF -telemetry -q4h oxygen saturations and vitals 2. covid-19 infection -telemetry -q4h oxygen saturation and vitals -covid-19 labs per protocol, otherwise without any adjunctive therapies at this time given no hypoxemia or complaints with normal pulm exam DVT ppx: lovenox VS,Fishbone, I+O VS, Fishbone, I+O Laboratory Tests 10/31/20 05:21 Vital Signs Date Time Temp Pulse Resp B/P (MAP) Pulse Ox O2 Delivery O2 Flow Rate FiO2 10/31/20 12:00 100 Room Air 10/31/20 11:42 97.1 79 18 122/77 (92) I&O- Last 24 Hours up to 6 AM 10/31/20 06:00 Intake Total 2945 ml Output Total 700 ml Balance 2245 ml VONDA PÉREZ MD Oct 31, 2020 14:42
[2020-11-01] VITALS: O2SAT 99
[2020-11-01 03:27] VITALS: O2SAT 99
[2020-11-01 07:58] LABS: BASO % 0.4 % (0.0-1.0); EOS # 0.6 10^3/uL (0.0-0.5); EOS % 11.5 % (0.0-3.0); HEMATOCRIT 35.5 % (36.0-47.0); HEMOGLOBIN 11.4 g/dl (12.0-15.5); LYMPH # 1.6 10^3/uL (1.5-5.0); LYMPH % 33.6 % (24.0-44.0); MEAN CORPUSCULAR HEMOGLOBIN 28.9 pg (27.0-33.0); MEAN CORPUSCULAR HGB CONC 32.1 g/dl (32.0-36.5); MEAN CORPUSCULAR VOLUME 89.9 fl (80.0-96.0); MONO # 0.5 10^3/uL (0.0-0.8); MONO % 9.7 % (0.0-5.0); NEUTROPHILS # 2.2 10^3/uL (1.5-8.5); NEUTROPHILS % 44.6 % (36.0-66.0); PLATELET COUNT, AUTOMATED 341 10^3/uL (150-450); RED BLOOD COUNT 3.95 10^6/uL (4.00-5.40); WHITE BLOOD COUNT 4.9 10^3/uL (4.0-10.0)
[2020-11-01 08:04] LABS: INR 0.95; PARTIAL THROMBOPLASTIN TIME 30.3 SECONDS (24.2-38.5); PROTHROMBIN TIME 12.9 SECONDS (12.5-14.3)
[2020-11-01 08:07] LABS: D-DIMER QUANT 580.22 ng/ml (<500)
[2020-11-01 08:15] LABS: ALBUMIN 3.4 GM/DL (3.2-5.2); ALT/SGPT 26 U/L (12-78); BILIRUBIN,DIRECT < 0.1 MG/DL (0.0-0.2); BILIRUBIN,TOTAL 0.1 MG/DL (0.2-1.0); BLOOD UREA NITROGEN 10 MG/DL (7-18); CALCIUM LEVEL 8.8 MG/DL (8.5-10.1); CARBON DIOXIDE LEVEL 28 MEQ/L (21-32); CHLORIDE LEVEL 104 MEQ/L (98-107); FERRITIN 44 NG/ML (8-252); GLOMERULAR FILTRATION RATE > 60.0 (>60); GLUCOSE, FASTING 82 MG/DL (70-100); MAGNESIUM LEVEL 2.2 MG/DL (1.8-2.4); NT-PRO BNP 18 PG/ML (<125); POTASSIUM SERUM 4.3 MEQ/L (3.5-5.1); SODIUM LEVEL 136 MEQ/L (136-145); TOTAL PROTEIN 7.5 GM/DL (6.4-8.2)
[2020-11-01 10:00] VITALS: BP 104/58
[2020-11-01] MEDS: ENOXAPARIN 40MG/0.4ML SYRINGE (J1650 PER 10MG) SC SCH (10:04)
--- NOTE | 2020-11-01 13:24 | DS.PDOC ---
Discharge Summary General Date of Admission Oct 29, 2020 at 23:27 Date of Discharge 11/01/20 Discharge Summary Chief complaints: heroine baggies ingestion Final diagnosis Toxic encephalopathy Code 19 infection History of present illness 39 yo W with a history of PSUD with multiple substance who was just diagnosed with covid-19, is incarcerated and brought back by police officers reporting that she ingested 2 baggies of heroine and chewed some as well. In the ED, she was drowsy but awake on voice and poison controlled recommended activated charcoal and mag citrate until she begins having bowel movements with some charcoal and ED observation for 12 hours. Unfortunately while in the ED, she did not have a bowel movement for over 12 hours despite charcoal and mag citrate and at this point poison control recommended obs admission and continuing the activated charcoal q4H. She is otherwise hemodynamically stable, afebrile, breathing comfortably on room air . Labs showed WBC 5.9 on 10/29 with Hgb 11.7 and platelets 311. This morning Na 145, K 3.6, Cr 1.01, LFTs wnl, lactate 2.3 --> 2.1, UA wnl and an AXR that showed no radiopaque foreign objects. Admitting diagnoses was Toxic encephalopathy 2/2 heroine ingestion, which improved. The patient got activated charcoal and had 5-6 bowel movements so far. The patient is alert, oriented to time, place and person. The patient has no abdominal pain and her mentation has completely improved. Telemetry shows no acute bradycardia arrhythmias. Her vitals have been stable as well. Also, for her covid-19 infection. She has been on room air saturating 99. She did not require any steroids and does not require any other anti- Covid medications. . She is hemodynamically stable for discharge. She is incarcerated and will be going back with their protocols of quarantine PHYSICAL EXAMINATION: GENERAL APPEARANCE. , Alert, oriented to time, person, person, in no apparent distress. States that she had her breakfast and tolerated well HEENT: NCAT, no lesions or cuts, sluggish pupils, injected sclera, anicteric CARDIOVASCULAR: RRR, no m/r/g LUNGS: CTAB ABDOMEN: Normoactive sounds throughout, soft, mild TTP, no rebound, no guarding EXTREMITIES: WWP, no LE edema NEUROLOGICAL: Somnolent, PERRLA, moving all extremities PSYCHIATRIC: AOx3, confirmed name, , place, date. Mediictations. As per discharge reconciliation medication list. Is not any m edications Activity as tolerated Diet regular Follow-up appointments. PCP in 1 week. Condition on discharge. Patient is medically optimized for discharge Discharge disposition: [facility]al facility Total time spent on this discharge including coordination of care, review of chart documentation and actual patient contact is around 35 minutes Vital Signs/I&Os Vital Signs Date Time Temp Pulse Resp B/P (MAP) Pulse Ox O2 Delivery O2 Flow Rate FiO2 11/01/20 10:00 98.4 74 16 104/58 (73) 99 Room Air I&O- Last 24 Hours up to 6 AM 11/01/20 05:59 Intake Total 2830 ml Output Total 1200 ml Balance 1630 ml Laboratory Data Labs 24H Laboratory Tests 2 10/31/20 13:21: D-Dimer, Quantitative 515.35H, C-Reactive Protein, Quantitative < 0.30 11/01/20 06:53: Immature Granulocyte % (Auto) 0.2, Neutrophils (%) (Auto) 44.6, Lymphocytes (%) (Auto) 33.6, Monocytes (%) (Auto) 9.7H, Eosinophils (%) (Auto) 11.5H, Basophils (%) (Auto) 0.4, Neutrophils # (Auto) 2.2, Lymphocytes # (Auto) 1.6, Monocytes # (Auto) 0.5, Eosinophils # (Auto) 0.6H, Basophils # (Auto) 0.0, Nucleated Red Blood Cells % (auto) 0.0, Procalcitonin <0.05 11/01/20 06:54: D-Dimer, Quantitative 580.22H, C-Reactive Protein, Quantitative 0.30, P rothrombin Time 12.9, Prothromb Time International Ratio 0.95, Activated Partial Thromboplast Time 30.3, Fibrinogen 331, Anion Gap 4L, Glomerular Filtration Rate > 60.0, Calcium Level 8.8, Magnesium Level 2.2, Ferritin 44, Total Bilirubin 0.1#L, Direct Bilirubin < 0.1, Aspartate Amino Transf (AST/SGOT) 19, Alanine Aminotransferase (ALT/SGPT) 26, Alkaline Phosphatase 119H, SO-Gtd-S-Type Natriuretic Peptide 18, Total Protein 7.5, Albumin 3.4, Albumin/Globulin Ratio 0.8L CBC/BMP Laboratory Tests 11/01/20 06:53 11/01/20 06:54 Discharge Medications No Active Prescriptions or Reported Meds Allergies Coded Allergies: Pecan (Verified Allergy, Severe, DIFFICULTY BREATHING AND THROAT CLOSES, 10/29/20) latex (Verified Allergy, Severe, hives, 10/29/20) hives and swelling ASHLEY ASHRAF MD Nov 01, 2020 12:26
== END 2020-11-01 15:35 | disposition home or self-care (01) ==
LOC: M ED 23:26 → M ED INP 23:27 → ENRESERV 10-30 14:36 → M ICU 10-30 15:52 → M 4MAIN 10-31 22:33
PROVIDERS: ADMIT Internal Medicine; ATTEND Internal Medicine
DX: G92 Toxic encephalopathy (principal); U07.1 COVID-19; T40.1X4A Poisoning by heroin, undetermined, initial encounter; F19.20 Other psychoactive substance dependence, uncomplicated; Z91.010 Allergy to peanuts; Z91.040 Latex allergy status
CPT/HCPCS: 36415; 74018; 80048; 80076; 82550; 82728; 83605; 83615; 83735; 83880; 84145; 84478; 84484; 85025; 85379; 85384; 85610; 85730; 86140; 93005; 93041; 94760; 96360; 96361; 96372; 99285; J1650

== ENCOUNTER → 2020-11-10 | Outpatient (CLI) | payer OTHER ==
--- NOTE | 2020-11-10 15:37 | REP ---
INDICATION: UNSP FRACTURE OF RIGHT WRIST AND HAND COMPARISON: None. TECHNIQUE: AP and lateral views of the right hand. FINDINGS: Acute fracture of the 5th metacarpal bone with volar angulation. Remainder of the examination is normal. IMPRESSION: Boxer's fracture of the 5th metacarpal bone. <Electronically signed by Matteo Jenkins > 11/10/20 1537
== END ==
LOC: M WUC 15:18
PROVIDERS: ATTEND Surgery
DX: S62.316A Displaced fracture of base of fifth metacarpal bone, right hand, initial encounter for closed fracture (principal); X58.XXXA Exposure to other specified factors, initial encounter; Y92.89 Other specified places as the place of occurrence of the external cause; Y93.89 Activity, other specified; Y99.8 Other external cause status

== ENCOUNTER → 2021-01-03 | Outpatient (CLI) | payer OTHER ==
--- NOTE | 2021-01-03 14:32 | REP ---
INDICATION: DISP FX OF 5TH MC BONE RT HAND, PT WAITING IN CT AREA. COMPARISON: None. TECHNIQUE: Axial CT right hand performed with sagittal and coronal reconstruction images. FINDINGS: A tiny calcific density at the base of the 1st distal phalanx probably represents an old avulsion fracture. There is an old avulsion fracture at the anterior base of the 3rd middle phalanx. There is an old healed fracture of the distal 5th metacarpal. There is mild anterior angulation deformity. There is an old avulsion fracture at the lateral margin of the distal 5th proximal phalanx. The joint spaces are unremarkable. Soft tissue structures are grossly unremarkable. IMPRESSION: Healed fracture distal 5th metacarpal with mild anterior angulation. Old avulsion fractures. <Electronically signed by Ernesto Barrios > 01/03/21 3237
== END ==
LOC: M RAD 10:12
PROVIDERS: ATTEND Physician Assistant
DX: S62.336D Displaced fracture of neck of fifth metacarpal bone, right hand, subsequent encounter for fracture with routine healing (principal); Y92.9 Unspecified place or not applicable; Y93.9 Activity, unspecified; Y99.9 Unspecified external cause status

== ENCOUNTER 2021-08-30 18:30 | Emergency (ER) | payer OTHER ==
[~2021-08-30] VITALS: Ht 170.2 cm; Wt 69.5 kg
[~2021-08-30 18:30] MED LIST changes: +ACET-683
--- OUTSIDE RECORDS SUMMARY | 2021-08-30 18:35 | CCD ---
Author Author Kit Minnie Jacintowna Organization Unknown Address [address] [place] [address] Phone Care Team Providers Care Biomedical Equipment Tech Name Role Phone Rema Pantoja PCP Chief Complaint and Reason for Visit Chief Complaint Allergies, Adverse Reactions, Alerts Concept Allergy Name Reaction Severity Onset Date Status Documentation Date Phone Number Npid Taxonomy Code Taxonomy Desc Author Last Name Author Fi rst Name Concept Type 305558 latex Unknown Active 01/06/2021 [id number] Nurse Practitioner Manpreet Alonso FDDC Problem List Concept Problem Description Status Start Date Created Date Resolv ed Date Snomed Code F31.9 Unspecified Bipolar and Related Disorder Active 06/09/2021 F11.20 Opioid Use Disorder, Severe Active 06/09/2021 F43.23 Adjustment Disorder, With mixed anxiety and depressed mood Active 06/09/2021 Medications Rx Norm Medication Route Route Concept Start Date Stop Date Dosage Cory quency Duration Formula Strength Dosage Form Dosage Form Code Dosage Description Medication Id Account Npid Author First Name Author Last Name Taxonomy Code Taxonomy Desc Phone Number [phone] lithium carbonate by mouth [id number] 12/21/2020 06/19/2021 twice a day 30 300 mg capsule 63138 [id number] Gavin Case [id number] Nurse Practitioner [phone] [id number] olanzapine by mouth [id number] 12/21/2020 06/19/2021 at bedtime 30 10 mg tablet 93402 403397 [id number] Gavin Case [id number] Nurse Pr actitioner [id number] mirtazapine by mouth [id number] 12/21/2020 06/19/2021 at bedtime 30 7.5 mg tablet 18850 [id number] [id number] Gavin Case [id number] Nurse Pr actitioner [phone] [id number] lithium carbonate by mouth [id number] 01/06/2021 07/05/2021 every m orning 30 150 mg capsule 57652 [id number] Gavin Manpreet [id number] Nurse Practitioner [id number] Social History Social History Element Description Concept Effective Date Smoking Status Unknown if ever smoked [id number] Immunizations No Data in Section Vital Signs No Data in Section Procedures Date Concept Id Description Targeted Site Concept Targeted Site Concept Type 06/09/2021 29880 Extended Individual Psychotherapy - 45 min CPT Patient has no history of implantable de vices Encounters Encounter Start Date End Date Encounter Type Description Diagnosis Di agnosis Desc Location Author First Name Author Last Name Npid Taxonomy Cod e Taxonomy Desc Phone Number Location Addr1 Location Addr2 Location [facility] Location [facility] Location [facility] [id number] 06/09/2021 06/09/2021 77693 Extended Individual Psych otherapy - 45 min F31.9 Bipolar disorder, unspecified [facility] Kit Hodgson [id number] Tobacco Wetter [phone] [address] [address] Plan of Treatment No Data in Section Lab Results No Data in Section Instructions No Data in Section Insurance Providers Insurance Id Policy Effective Date Policy Thru Date Company N ignacio [id number] [address]
--- OUTSIDE RECORDS SUMMARY | 2021-08-30 18:35 | CCD ---
Author Author Kit Minnie Hodgson Organization Unknown Address [address] [address] Phone Care Team Providers Care Russian Rubber Name Role Phone Rema Pantoja PCP Allergies, Adverse Reactions, Alerts Concept Allergy Name Reaction Severity Onset Date Status Documentation Date Phone Number Npid Taxonomy Code Taxonomy Desc Author Last Name Author Harmeet rst Name Concept Type [id number] latex Unknown Active 01/06/2021 [id number] Nurse Practitioner Manpreet Alonso FDDC Problem List Concept Problem Description Status Start Date Created Date Resolv ed Date Snomed Code F31.9 Unspecified Bipolar and Related Disorder Active 08/26/2021 F11.20 Opioid Use Disorder, Severe Active 08/26/2021 F43.23 Adjustment Disorder, With mixed anxiety and depressed mood Active 08/26/2021 Medications No Data in Section Social History Social History Element Description Concept Effective Date Smoking Status Unknown if ever smoked [id number] Immunizations No Data in Section Vital Signs No Data in Section Procedures Date Concept Id Description Targeted Site Concept Targeted Site Concept Type 08/25/2021 20376-19 TEMPMHCTelemed 30" Psychotherapy CPT Patient has no history of implantable de vices Encounters Encounter Start Date End Date Encounter Type Description Diagnosis Di agnosis Desc Location Author First Name Author Last Name Npid Taxonomy Cod e Taxonomy Desc Phone Number Location Addr1 Location Addr2 Location [facility] Location [facility] Location Zip [id number] 08/25/2021 08/25/2021 75272-51 TEMPMHCTelemed 30" Psychothe rapy F31.9 Bipolar disorder, unspecified [facility] Kit Hodgson [id number] Detention Worker [phone] [address] [facility] [address] Plan of Treatment No Data in Section Lab Results No Data in Section Instructions No Data in Section Insurance Providers Insurance Id Policy Effective Date Policy Thru Date Moisés Quiroz ame [id number] [address]
--- OUTSIDE RECORDS SUMMARY | 2021-08-30 18:35 | CCD ---
Author Author Kit Minnie Hodgson Organization Unknown Address [address] [place] [address] Phone Care Team Providers Care Flight Radio Operator Name Role Phone Rema Pantoja PCP Allergies, Adverse Reactions, Alerts Concept Allergy Name Reaction Severity Onset Date Status Documentation Date Phone Number Npid Taxonomy Code Taxonomy Desc Author Last Name Author Harmeet rst Name Concept Type [id number] latex Unknown Active 01/06/2021 [id number] Nurse Practitioner Manpreet Alonso FDDC Problem List Concept Problem Description Status Start Date Created Date Resolv ed Date Snomed Code F31.9 Unspecified Bipolar and Related Disorder Active 06/24/2021 F11.20 Opioid Use Disorder, Severe Active 06/24/2021 F43.23 Adjustment Disorder, With mixed anxiety and depressed mood Active 06/24/2021 Medications Rx Norm Medication Route Route Concept Start Date Stop Date Dosage Cory quency Duration Formula Strength Dosage Form Dosage Form Code Dosage Description Medication Id Account Npid Author First Name Author Last Name Taxonomy Code Taxonomy Desc Phone Number [id number] lithium carbonate by mouth [id number] 01/06/2021 07/05/2021 every m orning 30 150 mg capsule [id number] Gavin Case [id number] Nurse Practitioner [id number] Social History Social History Element Description Concept Effective Date Smoking Status Unknown if ever smoked [id number] Immunizations No Data in Section Vital Signs No Data in Section Procedures Date Concept Id Description Targeted Site Concept Targeted Site Concept Type 06/23/2021 25599 Psychiatric Diagnostic Evaluation (Non-Medical) CPT Patient has no history of implantable de vices Encounters Encounter Start Date End Date Encounter Type Description Diagnosis Di agnosis Desc Location Author First Name Author Last Name Npid Taxonomy Cod e Taxonomy Desc Phone Number Location Addr1 Location Addr2 Location [facility] Location [facility] Location [facility] [id number] 06/23/2021 06/23/2021 38837 Psychiatric Kaylee gnostic Evaluation (Non-Medical) F31.9 Bipolar disorder, unspecified [facility] [id number] Creel Operator [phone] [address] [address] Plan of Treatment No Data in Section Lab Results No Data in Section Instructions No Data in Section Insurance Providers Insurance Id Policy Effective Date Policy Thru Date Company N [employer] [id number] [address]
--- OUTSIDE RECORDS SUMMARY | 2021-08-30 18:35 | CCD ---
Author Author KitMinnie Organization Unknown Address [address] [address] Phone Care Team Providers Care School Bus Operator Name Role Phone Rema Pantoja PCP Allergies, Adverse Reactions, Alerts Concept Allergy Name Reaction Severity Onset Date Status Documentation Date Phone Number Npid Taxonomy Code Taxonomy Desc Author Last Name Author Fi rst Name Concept Type 143747 latex Unknown Active 01/06/2021 [id number] Nurse Practitioner Manpreet Alonso FDDC Problem List Concept Problem Description Status Start Date Created Date Resolv ed Date Snomed Code F31.9 Unspecified Bipolar and Related Disorder Active 07/08/2021 F11.20 Opioid Use Disorder, Severe Active 07/08/2021 F43.23 Adjustment Disorder, With mixed anxiety and depressed mood Active 07/08/2021 Medications No Data in Section Social History Social History Element Description Concept Effective Date Smoking Status Unknown if ever smoked [id number] Immunizations No Data in Section Vital Signs No Data in Section Procedures Date Concept Id Description Targeted Site Concept Targeted Site Concept Type 07/07/2021 14288 Extended Individual Psychotherapy - 45 min CPT Patient has no history of implantable de vices Encounters Encounter Start Date End Date Encounter Type Description Diagnosis Di agnosis Desc Location Author First Name Author Last Name Npid Taxonomy Cod e Taxonomy Desc Phone Number Location Addr1 Location Addr2 Location City Location [place] [id number] 07/07/2021 07/07/2021 04902 Extended Individual Psych otherapy - 45 min F31.9 Bipolar disorder, unspecified [facility] Kit Yeena [phone] [id number] Fire Support Specialist [phone] [address] [facility], [place] [address] [facility] [address] Plan of Treatment No Data in Section Lab Results No Data in Section Instructions No Data in Section Insurance Providers Insurance Id Policy Effective Date Policy Thru Date Company N [employer] [id number] [address]
--- OUTSIDE RECORDS SUMMARY | 2021-08-30 18:35 | CCD ---
Author Author Kit Minnie Hodgson Organization Unknown Address [address] [address] Phone Care Team Providers Care Telephone Cleaner Name Role Phone Rema Pantoja PCP Allergies, Adverse Reactions, Alerts Concept Allergy Name Reaction Severity Onset Date Status Documentation Date Phone Number Npid Taxonomy Code Taxonomy Desc Author Last Name Author Harmeet rst Name Concept Type 782002 latex Unknown Active 01/06/2021 [id number] Nurse Practitioner Manpreet Alonso FDDC Problem List Concept Problem Description Status Start Date Created Date Resolv ed Date Snomed Code F31.9 Unspecified Bipolar and Related Disorder Active 08/11/2021 F11.20 Opioid Use Disorder, Severe Active 08/11/2021 F43.23 Adjustment Disorder, With mixed anxiety and depressed mood Active 08/11/2021 Medications No Data in Section Social History Social History Element Description Concept Effective Date Smoking Status Unknown if ever smoked [id number] Immunizations No Data in Section Vital Signs No Data in Section Procedures Date Concept Id Description Targeted Site Concept Targeted Site Concept Type 08/11/2021 49640-14 [id number]"Psychotherapy CPT Patient has no history of implantable de vices Encounters Encounter Start Date End Date Encounter Type Description Diagnosis Di agnosis Desc Location Author First Name Author Last Name Npid Taxonomy Cod e Taxonomy Desc Phone Number Location Addr1 Location Addr2 Location [facility] Location [place] Location Zip [id number] 08/11/2021 08/11/2021 25040-10 [id number]"Psychothera py F31.9 Bipolar disorder, unspecified [facility] Kit Hodgson [phone] [id number] Director Equipment [phone] [address] [place], [place] [address] [facility] [address] Plan of Treatment No Data in Section Lab Results No Data in Section Instructions No Data in Section Insurance Providers Insurance Id Policy Effective Date Policy Thru Date Moisés Quiroz ame [id number] [address]
--- OUTSIDE RECORDS SUMMARY | 2021-08-30 18:36 | CCD ---
Author Author [facility] Organization [facility] Address Unknown Phone Unavailable Support Name Relationship Address Phone MINNIE AVINA Next Of Kin CARLOS GUSTAFSON [facility] [place] [address] [facility] Next Of Kin [address] GUSTAFSON [facility] [place] [address] [facility] Next Of Kin [address] [place] [address] Brisa Lees Next Of Kin [address] [place] [address] MINNIE LECHUGA Next Of Kin [address] [facility] [address] [place] [address] Leyda Braxton MD Next Of Kin [address] [place] [address] UE Next Of Kin Unknown Unavailable [facility]* Next Of Kin [address] [place] [address] PRECIOUS OLIVIA Next Of Kin [address] [place] [address] MINNIE SMITH Next Of Kin [address] [facility] [address] [place] [address] Ashley RPA-C, Dotty Next Of Kin [address] [place] [address] Allie ANP-BC, Baylee Next Of Kin [address] [place] [id number] "" Next Of Kin [address] [place] [address] UNKNOWN Next Of Kin Unknown Unavailable SK* Next Of Kin [address] [place] [address] [employer] Next Of Kin [address] [place] [address] ZOE CM Next Of Kin [address] [place] [address] MINNIE LECHUGA ECON [address] [facility] [address] [place] [address] Un[place] [address] Unavailable Care Team Providers Care Emt B Name Role Phone Gavi Case PHYSICAL EDUCATION DEPARTMENT CHAIR Unavailable Unavailable Gavi Case PHYSICAL EDUCATION DEPARTMENT CHAIR Unavailable Unavailable Gavi Case PHYSICAL EDUCATION DEPARTMENT CHAIR Unavailable Unavailable Scordo, M Brisa PA Unavailable Unavailable Scordo, M Brisa PA Unavailable Unavailable Scordo, M Brisa PA Unavailable Unavailable Scordo, M Brisa PA Unavailable Unavailable Scordo, M Brisa PA Unavailable Unavailable Scordo, M Brisa PA Unavailable Unavailable Scordo, M Brisa PA Unavailable Unavailable Scordo, M Brisa PA Unavailable Unavailable Scordo, M Brisa PA Unavailable Unavailable Scordo, M Brisa PA Unavailable Unavailable Scordo, M Brisa PA Unavailable Unavailable Scordo, M Brisa PA Unavailable Unavailable Scordo, M Brisa PA Unavailable Unavailable Scordo, M Brisa PA Unavailable Unavailable Scordo, M Brisa PA Unavailable Unavailable Scordo, M Brisa PA Unavailable Unavailable Scordo, M Brisa PA Unavailable Unavailable Scordo, M Brisa PA Unavailable Unavailable Scordo, M Brisa PA Unavailable Unavailable Scordo, M Brisa PA Unavailable Unavailable Scordo, M Brisa PA Unavailable Unavailable Scordo, M Brisa PA Unavailable Unavailable Scordo, M Brisa PA Unavailable Unavailable Scordo, M Brisa PA Unavailable Unavailable Scordo, M Brisa PA Unavailable Unavailable Scordo, M Brisa PA Unavailable Unavailable Scordo, M Brisa PA Unavailable Unavailable Scordo, M Brisa PA Unavailable Unavailable Scordo, M Brisa PA Unavailable Unavailable Scordo, M Brisa PA Unavailable Unavailable Scordo, M Brisa PA Unavailable Unavailable Scordo, M Brisa PA Unavailable Unavailable Scordo, M Brisa PA Unavailable Unavailable Scordo, M Brisa PA Unavailable Unavailable Scordo, M Brisa PA Unavailable Unavailable Scordo, M Brisa PA Unavailable Unavailable Scordo, M Brisa PA Unavailable Unavailable Scordo, M Brisa PA Unavailable Unavailable Scordo, M Brisa PA Unavailable Unavailable Scordo, M Brisa PA Unavailable Unavailable Scordo, M Brisa PA Unavailable Unavailable Scordo, M Brisa PA Unavailable Unavailable Scordo, M Brisa PA Unavailable Unavailable Scordo, M Brisa PA Unavailable Unavailable Scordo, M Brisa PA Unavailable Unavailable Scordo, M Brisa PA Unavailable Unavailable Scordo, M Brisa PA Unavailable Unavailable Calle, E Cynthia PA Unavailable [phone] Calle, E Cynthia PA Unavailable [phone] Calle, E Cynthia PA Unavailable [phone] Calle, E Cynthia PA Unavailable [phone] Calle, E Cynthia PA Unavailable [phone] Calle, E Cynthia PA Unavailable [phone] Allison BRAXTON MD Unavailable Unavailable Allison BRAXTON MD Unavailable Unavailable Allison BRAXTON MD Unavailable Unavailable Allison BRAXTON MD Unavailable Unavailable Allison BRAXTON MD Unavailable Unavailable Allison BRAXTON MD Unavailable Unavailable Allison BRAXTON MD Unavailable Unavailable Allison BRAXTON MD Unavailable Unavailable Allison BRAXTON MD Unavailable Unavailable Allison BRAXTON MD Unavailable Unavailable Allison BRAXTON MD Unavailable Unavailable Allison BRAXTON MD Unavailable Unavailable Allison BRAXTON MD Unavailable Unavailable Allison BRAXTON MD Unavailable Unavailable Allison BRAXTON MD Unavailable Unavailable Allison BRAXTON MD Unavailable Unavailable Allison BRAXTON MD Unavailable Unavailable Allison BRAXTON MD Unavailable Unavailable Allison BRAXTON MD Unavailable Unavailable Allison BRAXTON MD Unavailable Unavailable Allison BRAXTON MD Unavailable Unavailable Allison BRAXTON MD Unavailable Unavailable Allison BRAXTON MD Unavailable Unavailable Allison BRAXTON MD Unavailable Unavailable Allison BRAXTON MD Unavailable Unavailable Allison BRAXTON MD Unavailable Unavailable Allison BRAXTON MD Unavailable Unavailable Allison BRAXTON MD Unavailable Unavailable Allison BRAXTON MD Unavailable Unavailable Allison BRAXTON MD Unavailable Unavailable Allison BRAXTON MD Unavailable Unavailable Allison BRAXTON MD Unavailable Unavailable Allison BRAXTON MD Unavailable Unavailable Allison BRAXTON MD Unavailable Unavailable Allison BRAXTON MD Unavailable Unavailable Allison BRAXTON MD Unavailable Unavailable Allison BRAXTON MD Unavailable Unavailable Allison BRAXTON MD Unavailable Unavailable Allison BRAXTON MD Unavailable Unavailable Allison BRAXTON MD Unavailable Unavailable Allison BRAXTON MD Unavailable Unavailable Allison BRAXTON MD Unavailable Unavailable Allison BRAXTON MD Unavailable Unavailable Allison BRAXTON MD Unavailable Unavailable Allison BRAXTON MD Unavailable Unavailable Allison BRAXTON MD Unavailable Unavailable Allison BRAXTON MD Unavailable Unavailable Allison BRAXTON MD Unavailable Unavailable Allison BRAXTON MD Unavailable Unavailable Allison BRAXTON MD Unavailable Unavailable Allison BRAXTON MD Unavailable Unavailable Allison BRAXTON MD Unavailable Unavailable Allison BRAXTON MD Unavailable Unavailable Allison BRAXTON MD Unavailable Unavailable Allison BRAXTON MD Unavailable Unavailable Allison BRAXTON MD Unavailable Unavailable Allison BRAXTON MD Unavailable Unavailable Allison BRAXTON MD Unavailable Unavailable Allison BRAXTON MD Unavailable Unavailable Allison BRAXTON MD Unavailable Unavailable Allison BRAXTON MD Unavailable Unavailable Allison BRAXTON MD Unavailable Unavailable Allison BRAXTON MD Unavailable Unavailable Allison BRAXTON MD Unavailable Unavailable Allison BRAXTON MD Unavailable Unavailable Allison BRAXTON MD Unavailable Unavailable Allison BRAXTON MD Unavailable Unavailable Allison BRAXTON MD Unavailable Unavailable Allison BRAXTON MD Unavailable Unavailable Allison BRAXTON MD Unavailable Unavailable Allison BRAXTON MD Unavailable Unavailable Allison BRAXTON MD Unavailable Unavailable Allison BRAXTON MD Unavailable Unavailable Allison BRAXTON MD Unavailable Unavailable Allison BRAXTON MD Unavailable Unavailable Allison BRAXTON MD Unavailable Unavailable Allison BRAXTON MD Unavailable Unavailable Allison BRAXTON MD Unavailable Unavailable Allison BRAXTON MD Unavailable Unavailable Allison BRAXTON MD Unavailable Unavailable Allison BRAXTON MD Unavailable Unavailable Allison BRAXTON MD Unavailable Unavailable Allison BRAXTON MD Unavailable Unavailable Allison BRAXTON MD Unavailable Unavailable Allison BRAXTON MD Unavailable Unavailable Allison BRAXTON MD Unavailable Unavailable Allison BRAXTON MD Unavailable Unavailable Allison BRAXTON MD Unavailable Unavailable Allison BRAXTON MD Unavailable Unavailable Rema Pantoja Unavailable Dione Mccoy Unavailable ASARNATACHA MD Unavailable Unavailable ASAR, NATACHA LEYVA Unavailable Unavailable ASAR, NATACHA LEYVA Unavailable Unavailable ASAR, NATACHA LEYVA Unavailable Unavailable ASAR, NATACHA LEYVA Unavailable Unavailable ASAR, NATACHA LEYVA Unavailable Unavailable ASAR, NATACHA LEYVA Unavailable Unavailable Asar, Hasenma Manzano MD Unavailable Unavailable Goff, M Barratt PA Unavailable Unavailable Goff, M Barratt PA Unavailable Unavailable Goff, M Barratt PA Unavailable Unavailable Goff, M Barratt PA Unavailable Unavailable Goff, M Barratt PA Unavailable Unavailable Goff, M Barratt PA Unavailable Unavailable Goff, M Barratt PA Unavailable Unavailable Goff, M Barratt PA Unavailable Unavailable Goff, M Barratt PA Unavailable Unavailable Goff, M Barratt PA Unavailable Unavailable Goff, M Barratt PA Unavailable Unavailable Goff, M Barratt PA Unavailable Unavailable Goff, M Barratt PA Unavailable Unavailable Goff, M Barratt PA Unavailable Unavailable Goff, M Barratt PA Unavailable Unavailable Goff, M Barratt PA Unavailable Unavailable Goff, M Barratt PA Unavailable Unavailable Goff, M Barratt PA Unavailable Unavailable Goff, M Barratt PA Unavailable Unavailable Goff, M Barratt PA Unavailable Unavailable Goff, M Barratt PA Unavailable Unavailable Goff, M Barratt PA Unavailable Unavailable Goff, M Barratt PA Unavailable Unavailable Goff, M Barratt PA Unavailable Unavailable Goff, M Barratt PA Unavailable Unavailable Goff, M Barratt PA Unavailable Unavailable Goff, M Barratt PA Unavailable Unavailable Goff, M Barratt PA Unavailable Unavailable Goff, M Barratt PA Unavailable Unavailable Jackie Kim Unavailable Re-disclosure Warning The records that you are about to access may contain information from federally-assisted alcohol or drug abuse programs. If such information is present, then the following federally mandated warning applies: This information has been disclosed to you from records protected by federal confidentiality rules (42 CFR part 2). The federal rules prohibit you from making any further disclosure of this information unless further disclosure is expressly permitted by the written consent of the person to whom it pertains or as otherwise permitted by 42 CFR part 2. A general authorization for the release of medical or other information is NOT sufficient for this purpose. The Federal rules restrict any use of the information to criminally investigate or prosecute any alcohol or drug abuse patient.The records that you are about to access may contain highly sensitive health information, the redisclosure of which is protected by Article 27-F of the [facility] Public Health law. If you continue you may have access to information: Regarding HIV / AIDS; Provided by facilities licensed or operated by the [facility] Office of Mental Health; or Provided by the [facility] Office for People With Developmental Disabilities. If such information is present, then the following [facility] mandated warning applies: This information has been disclosed to you from confidential records which are protected by state law. State law prohibits you from making any further disclosure of this information without the specific written consent of the person to whom it pertains, or as otherwise permitted by law. Any unauthorized further disclosure in violation of state law may result in a fine or residential sentence or both. A general authorization for the release of medical or other information is NOT sufficient authorization for further disc losure. Allergies and Adverse Reactions Type Description Substance Reaction Status Data Source(s ) Propensity to adverse reactions to substance latex latex Active [facility] ([facility]) Propensity to adverse reactions to substance latex latex Active [facility] ([facility]) Drug allergy Drug allergy pecan nut Anaphylactic Shock S [facility] Family History Family Member Name Family Member Gender Family Member Status Date o f Status Description Data Source(s) Unknown Female Problem [facility] ([facility]) Unknown Female Problem [facility] ([facility]) Encounters Encounter Providers Location Date Indications Data Source(s ) TEMPMHCTelemed 30" Psychotherapy Attender: Remamonica Pantoja [facility] Detention 08/25/2021 02:00:00 AM EDT - 08/25/2021 02:00:00 AM EDT [facility] ([facility]) Attender: Rema Pantoja 08/25/2021 12:00:00 AM E DT [facility] ([facility]) [id number]"Psychotherapy Attender: [facility] 08/11/2021 02:00:00 AM EDT - 08/11/2021 02:00:00 AM EDT [facility] ([facility]) Attender: Rema Kit 08/11/2021 12:00:00 AM E DT [facility] ([facility]) Extended Individual Psychotherapy - 45 min Attender: Taran Pantoja [facility] 07/07/2021 02:00:00 AM EDT - 07/07/2021 02:00:00 AM EDT [facility] ([facility]) Attender: Rema Pantoja 07/07/2021 12:00:00 AM E DT [facility] ([facility]) Psychiatric Diagnostic Evaluation (Non-Medical) Attender: Loren ramos Kit [facility] 06/23/2021 02:00:00 AM EDT - 06/23/2021 02:00:00 AM EDT [facility] ([facility]) Attender: Rema Kit 06/23/2021 12:00:00 AM E DT [facility] ([facility]) Extended Individual Psychotherapy - 45 min Attender: Taran Pantoja [facility] 06/09/2021 11:00:00 AM EDT - 06/09/2021 11:00:00 AM EDT [facility] ([facility]) Attender: Rema Kit 06/09/2021 12:00:00 AM E DT [facility] ([facility]) [place] [address] [facility] [address] 05/19/2021 12:00:00 AM EDT [facility] ([facility]) [place] [address] [facility] [address] 05/11/2021 12:00:00 AM EDT eCW1 ([facility]) TEMP Forensic Telemed DC MM E/M 3 Est Pt Attender: Gavin gomez NP [facility] 05/05/2021 03:00:00 AM EDT - 05/05/2021 03:00:00 AM EDT [facility] ([facility]) Attender: Gavin Case NP 05/05/2021 12:00:00 AM EDT [facility] ([facility]) Extended Individual Psychotherapy - 45 min Attender: Taran Pantoja [facility] 04/28/2021 11:00:00 AM EDT - 04/28/2021 11:00:00 AM EDT [facility] ([facility]) Attender: Rema Pantoja 04/28/2021 12:00:00 AM E DT [facility] ([facility]) [place] [address] [facility] [address] 04/22/2021 12:00:00 AM EDT eCW1 ([facility]) [place] [address] [facility] [address] 04/22/2021 12:00:00 AM EDT eCW1 ([facility]) [place] [address] [facility] [address] 04/21/2021 12:00:00 AM EDT eCW1 ([facility]) [place] [address] [facility] [address] 04/12/2021 12:00:00 AM EDT eCW1 ([facility]) Telemed Diagnostic Eval Attender: Gavin [facility] 03/30/2021 10:00:00 AM EDT - 03/30/2021 10:00:00 AM EDT [facility] ([facility]) Attender: Gavin Case NP 03/30/2021 12:00:00 AM EDT [facility] ([facility]) [place] [address] [facility] [address] 03/29/2021 12:00:00 AM EDT eCW1 ([facility]) Extended Individual Psychotherapy - 45 min Attender: Lorie Kim [facility] 03/23/2021 09:00:00 AM EDT - 03/23/2021 09:00:00 AM EDT [facility] ([facility]) Attender: Jackie Kim 03/23/2021 12:00:00 A M EDT [facility] ([facility]) [place] [address] [facility] [address] 03/16/2021 12:00:00 AM EDT eCW1 ([facility]) Out[place] [address] [facility] [address] 03/15/2021 12:00:00 AM EDT eCW1 ([facility]) Extended Individual Psychotherapy - 45 min Attender: Dariela Mccoy [facility] Detention 03/11/2021 10:15:00 AM EDT - 03/11/2021 10:15:00 AM EDT [facility] ([facility]) Attender: Dione Mccoy 03/11/2021 12:00:00 AM EDT [facility] ([facility]) Inpatient Attender: Natacha Irvin nder: NATACHA SORIA MDAdmitter: Natacha Soria MD [facility] 02/09/2021 09:39:00 AM EDT - 03/09/2021 06:05:00 AM EDT PSYCHOACTIVE SUBSTANCE DEPENDENCE [facility] PSYCHOACTIVE SUBSTANCE DEPENDENCE Patient discharged. Attender: Rema Pantoja 02/09/2021 12:00:00 AM E DT [facility] ([facility]) Detention - Case Management Attender: Rema Pantoja [facility] J ail 02/08/2021 08:30:00 AM EDT - 02/08/2021 08:30:00 AM EDT [facility] ([facility]) Brief Individual Psychotherapy - 30 min Attender: Rema akins [facility] Detention 01/31/2021 09:45:00 AM EDT - 01/31/2021 09:45:00 AM EDT [facility] ([facility]) Extended Individual Psychotherapy - 45 min Attender: aTran Pantoja [facility] Detention 01/31/2021 01:15:00 AM EDT - 01/31/2021 01:15:00 AM EDT [facility] ([facility]) Attender: Rema Pantoja 01/31/2021 12:00:00 AM E DT [facility] ([facility]) Attender: Rema Pantoja 01/31/2021 12:00:00 AM E DT [facility] ([facility]) Attender: Rema Pantoja 01/05/2021 12:00:[address] [facility] ([facility]) Extended Individual Psychotherapy - 45 min Attender: Taran robbins Kit [facility] 01/04/2021 01:45:00 AM EST - 01/04/2021 01:45:00 AM EST [facility] ([facility]) Extended Individual Psychotherapy - 45 min Attender: Taran robbins Kit [facility] 12/24/2020 01:45:00 AM EST - 12/24/2020 01:45:00 AM EST [facility] ([facility]) Attender: Rema Pantoja 12/24/2020 12:00:[address] [facility] ([facility]) Telemed Diagnostic Eval Attender: Gavin Case NP [facility] 12/21/2020 09:00:00 AM EST - 12/21/2020 09:00:00 AM EST [facility] ([facility]) Attender: Gavin Case NP 12/21/2020 12:00:00 AM EST [facility] ([facility]) Attender: Rema Pantoja 12/15/2020 12:00:[address] [facility] ([facility]) Extended Individual Psychotherapy - 45 min Attender: Taran Pantoja [facility] 12/14/2020 09:15:00 AM EST - 12/14/2020 09:15:00 AM EST [facility] ([facility]) Extended Individual Psychotherapy - 45 min Attender: Taran Pantoja [facility] 11/30/2020 01:45:00 AM EST - 11/30/2020 01:45:00 AM EST [facility] ([facility]) Attender: Rema Pantoja 11/30/2020 12:00:[address] [facility] ([facility]) Office Visit Attender: Louie CRAWFORD Physical Therapy 09:30:00 AM EST [facility] ([facility]) OFFICE OUTPATIENT NEW 30 MINUTES Attender: Louie CRAWFORD Ph ysical Therapy 11/12/2020 01:00:00 PM EST [facility] ([facility]) Crisis Intervention - Brief Attender: Rema watson Detention 11/10/2020 08:30:00 AM EST - 11/10/2020 08:30:00 AM EST [facility] ([facility]) Attender: Rema Pantoja 11/10/2020 12:00:[address] [facility] ([facility]) Attender: Rema Pantoja 11/10/2020 12:00:[address] [facility] ([facility]) Attender: Rema Pantoja 11/10/2020 12:00:[address] [facility] ([facility]) Crisis Intervention - Brief Attender: Rema watson Detention 11/09/2020 11:30:00 AM EST - 11/09/2020 11:30:00 AM EST [facility] ([facility]) Crisis Intervention - Brief Attender: Rema watson Detention 11/09/2020 08:30:00 AM EST - 11/09/2020 08:30:00 AM EST [facility] ([facility]) Crisis Intervention - Brief Attender: Rema watson Detention 11/08/2020 02:15:00 AM EST - 11/08/2020 02:15:00 AM EST [facility] ([facility]) Attender: Rema Pantoja 11/08/2020 12:00:[address] [facility] ([facility]) Outpatient Attender: Brisa WALKER 08/17/2020 02:56:02 PM EDT [facility] Outpatient Attender: Brisa WALKER 08/02/2020 04:29:00 PM EDT [facility] Outpatient Attender: Brisa CRAWFORD FP 07/09/2020 03:13:02 PM EDT [facility] Outpatient Attender: Brisa CRAWFORD FP 07/09/2020 02:44:00 PM EDT [facility] Outpatient Attender: Brisa CRAWFORD FP 07/09/2020 02:38:00 PM EDT [facility] Outpatient Attender: Brisa CRAWFORD FP 07/09/2020 02:19:01 PM EDT [facility] Outpatient Attender: Brisa CRAFWORD FP 07/09/2020 02:18:00 PM EDT [facility] Outpatient Attender: Brisa CRAWFORD FP 07/09/2020 09:57:01 AM EDT [facility] Outpatient Attender: Cynthia CRAWFORD [facility] 0 07/08/2020 07:57:00 AM EDT - 07/08/2020 [facility] Attender: LEYDA BRAXTON MD 07/02/2020 10:22:00 A M EDT [facility] Inpatient Attender: Natacha Soria MDAtte nder: NATACHA SORIA MDAdmitter: NATACHA SORIA MD [facility] 06/29/2020 05:16:00 PM EDT - 07/08/2020 07:30:00 AM EDT PSYCHOACTIVE SUBSTANCE DEPENDENCE [facility] PSYCHOACTIVE SUBSTANCE DEPENDENCE Patient discharged. Functional Status Medications Medication Brand Name Start Date Product Form Dose Route Admi nistrative Instructions Pharmacy Instructions Status Indications Reaction Description Data Source(s) Mupirocin 0.02 MG/MG Topical Ointment Mupirocin 2 % Mupiroci n 2 % 03/15/2021 12:00:00 AM EDT 1.0 {application} active Mupirocin 2 % eCW1 ([facility]) Acetaminophen 500 MG Oral Tablet Acetaminophen 500 MG 2020 12:00:00 AM EDT active Acetaminophen 500 MG eCW1 ([facility]) Mupirocin 0.02 MG/MG Topical Ointment Mupirocin 2 % Mupiroci n 2 % 03/15/2021 12:00:00 AM EDT 1.0 {application} active Mupirocin 2 % eCW1 ([facility]) Ibuprofen 400 MG Oral Tablet Ibuprofen 400 MG 03/15/2021 12:00:00 AM E DT active Ibuprofen 400 MG eCW1 ([facility]) Ibuprofen 400 MG Oral Tablet Ibuprofen 400 MG 03/15/2021 12:00:00 AM E DT active Ibuprofen 400 MG eCW1 ([facility]) Acetaminophen 500 MG Oral Tablet Acetaminophen 500 MG 2020 12:00:00 AM EDT active Acetaminophen 500 MG eCW1 ([facility]) Mupirocin 0.02 MG/MG Topical Ointment Mupirocin 2 % Mupiroci n 2 % 03/15/2021 12:00:00 AM EDT 1.0 {application} active Mupirocin 2 % eCW1 ([facility]) Ibuprofen 400 MG Oral Tablet Ibuprofen 400 MG 03/15/2021 12:00:00 AM E DT active Ibuprofen 400 MG eCW1 ([facility]) Acetaminophen 500 MG Oral Tablet Acetaminophen 500 MG 2020 12:00:00 AM EDT active Acetaminophen 500 MG eCW1 ([facility]) Mupirocin 0.02 MG/MG Topical Ointment Mupirocin 2 % Mupiroci n 2 % 03/15/2021 12:00:00 AM EDT 1.0 {application} active Mupirocin 2 % eCW1 ([facility]) Ibuprofen 400 MG Oral Tablet Ibuprofen 400 MG 03/15/2021 12:00:00 AM E DT active Ibuprofen 400 MG eCW1 ([facility]) Mupirocin 0.02 MG/MG Topical Ointment Mupirocin 2 % Mupiroci n 2 % 03/15/2021 12:00:00 AM EDT 1.0 {application} active Mupirocin 2 % eCW1 ([facility]) Ibuprofen 400 MG Oral Tablet Ibuprofen 400 MG 03/15/2021 12:00:00 AM E DT active Ibuprofen 400 MG eCW1 ([facility]) Ibuprofen 400 MG Oral Tablet Ibuprofen 400 MG 03/15/2021 12:00:00 AM E DT active Ibuprofen 400 MG eCW1 ([facility]) Ibuprofen 400 MG Oral Tablet Ibuprofen 400 MG 03/15/2021 12:00:00 AM E DT active Ibuprofen 400 MG eCW1 ([facility]) Ibuprofen 400 MG Oral Tablet Ibuprofen 400 MG 03/15/2021 12:00:00 AM E DT active Ibuprofen 400 MG [facility] [facility] Mupirocin 0.02 MG/MG Topical Ointment Mupirocin 2 % Mupiroci n 2 % 03/15/2021 12:00:00 AM EDT 1.0 {application} active Mupirocin 2 % eCW1 ([facility]) Acetaminophen 500 MG Oral Tablet Acetaminophen 500 MG 2020 12:00:00 AM EDT active Acetaminophen 500 MG eCW1 ([facility]) Acetaminophen 500 MG Oral Tablet Acetaminophen 500 MG 2020 12:00:00 AM EDT active Acetaminophen 500 MG eCW1 ([facility]) Acetaminophen 500 MG Oral Tablet Acetaminophen 500 MG 2020 12:00:00 AM EDT active Acetaminophen 500 MG eCW1 ([facility]) Acetaminophen 500 MG Oral Tablet Acetaminophen 500 MG 2020 12:00:00 AM EDT active Acetaminophen 500 MG eCW1 ([facility]) Ibuprofen 400 MG Oral Tablet Ibuprofen 400 MG 03/15/2021 12:00:00 AM E DT active Ibuprofen 400 MG eCW1 ([facility]) Acetaminophen 500 MG Oral Tablet Acetaminophen 500 MG 2020 12:00:00 AM EDT active Acetaminophen 500 MG eCW1 ([facility]) Mupirocin 0.02 MG/MG Topical Ointment Mupirocin 2 % Mupiroci n 2 % 03/15/2021 12:00:00 AM EDT 1.0 {application} active Mupirocin 2 % eCW1 ([facility]) Acetaminophen 500 MG Oral Tablet Acetaminophen 500 MG 2020 12:00:00 AM EDT active Acetaminophen 500 MG eCW1 ([facility]) Mupirocin 0.02 MG/MG Topical Ointment Mupirocin 2 % Mupiroci n 2 % 03/15/2021 12:00:00 AM EDT 1.0 {application} active Mupirocin 2 % eCW1 ([facility]) Mupirocin 0.02 MG/MG Topical Ointment Mupirocin 2 % Mupiroci n 2 % 03/15/2021 12:00:00 AM EDT 1.0 {application} active Mupirocin 2 % eCW1 ([facility]) olanzapine 10 MG Oral Tablet Olanzapine 01/06/2021 12:00:00 AM EST ORAL active [facility] [place] Carbonate 150 MG Oral Capsule [place] Carbonate 12:00:00 AM EST ORAL active [facility] ([facility]) [place] Carbonate 150 MG Oral Capsule lithium carbonate 12:00:00 AM EST 150 mg by mouth completed <td ID="MedicationRxNorm_4">246736</td><td ID="MedicationMedication_4">lithium carbonate</td><td ID="MedicationRoute_4">by mouth</td><td ID="MedicationRouteConcept_4">H96973</td><td ID="MedicationStartDate_4">01/06/2021</td><td ID="MedicationStopDate_4">07/05/2021</td><td ID="MedicationDosageFrequency_4">every morning</td><td ID="MedicationDuration_4">30</td><td ID="MedicationFormulaStrength_4">150 mg</td><td ID="MedicationDosageForm_4">capsule</td><td ID="MedicationDosageFormCode_4"></td><td ID="MedicationDosageDescription_4"> </td><td ID="MedicationMedicationId_4">[id number]</td><td ID="MedicationAccount_4">[id number]</td><td ID="MedicationNpid_4">[id number]</td><td ID="MedicationAuthorFirstName_4">Gavin</td><td ID="MedicationAuthorLastName_4">Case</td><td ID="MedicationTaxonomyCode_4">[id number]</td><td ID="MedicationTaxonomyDesc_4">Nurse Practitioner</td><td ID="MedicationPhoneNumber_4">[phone]</td> [facility]) [place] Carbonate 150 MG Oral Capsule lithium carbonate 12:00:00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 ever smoked comp leted Unknown if ever smoked [facility] ([facility]) Smoking 11/30/2020 12:00:00 AM EST Unknown if ever smoked comp leted Unknown if ever smoked [facility] ([facility]) Smoking 11/10/2020 12:00:00 AM EST Unknown if ever smoked comp leted Unknown if ever smoked [facility] ([facility]) Smoking 11/08/2020 12:00:00 AM EST Unknown if ever smoked comp leted Unknown if ever smoked [facility] ([facility]) Vital Signs ID Date Data Source UNK Name Value Range Interpretation Code Description Data Source(s) Body weight 189 [lb_av] 189 [lb_av] eCW1 ([facility]) Body height 67 [in_i] 67 [in_i] W1 ([facility]) Body mass index (BMI) [Ratio] 29.60 kg/m2 29.60 kg/m2 [facility] ([facility]) Heart rate 115 /min 115 /min eCW1 ([facility]) Respiratory rate 18 /min 18 /min eCW1 ([facility]) Body temperature 97.9 [degF] 97.9 [degF] eCW1 ( [facility]) Systolic blood pressure 104 mm[Hg] 104 mm[Hg] e CW1 ([facility]) Diastolic blood pressure 72 mm[Hg] 72 mm[Hg] eCW1 ([facility]) Body weight 172.00 [lb_av] 172.00 [lb_av] MEDEN T ([facility]) Body height 0.00 in Normal (applies to non-numeric resu lts) 0.00 in [facility] ([facility]) Body weight Measured 0.00 lbs Normal (applies to n on-numeric results) 0.00 lbs [facility] ([facility]) Body mass index (BMI) [Ratio] 0.00 kg/m2 No rmal (applies to non-numeric results) 0.00 kg/m2 [facility] ([facility]) Systolic blood pressure 0 mm[Hg] Normal (applies t o non-numeric results) 0 mm[Hg] [facility] ([facility]) Diastolic blood pressure 0 mm[Hg] Normal (applies to non-numeric results) 0 mm[Hg] [facility] ([facility]) Systolic blood pressure 115 mm[Hg] 115 mm[Hg] [facility] ([facility]) Diastolic blood pressure 73 mm[Hg] 73 mm[Hg] [facility] ([facility]) Heart rate 62 /min 62 /min [facility] ([facility]) Respiratory rate 18 /min 18 /min [facility] ( [facility]) Body temperature 97.8 [degF] 97.8 [degF] [facility] ([facility]) Body weight 148.00 [lb_av] 148.00 [lb_av] [facility] ID Date Data Source [id number] 03/13/2021 04:43:00 PM EDT [facility] Name Value Range Interpretation Code Description Data Source(s) Weight Measurement Method 1 1 [facility] Weight (Calculated Kilograms) 84.82 84.82 [facility] Weight 3104 3104 [facility] Temperature Source 7 7 [facility] Temperature 96.2 96.2 [facility] Respiratory Effort 1 1 [facility] Respiratory Rate 16 16 [facility] Pulse Assessment Method 4 4 [facility] Pulse Rate 93 93 [facility] Height (Calculated Centimeters) 167.64 167. 64 [facility] Height 66 66 [facility] Blood Pressure 122/82 122/82 [facility] Body Mass Index (BMI) 30.2 30.2 [facility] Weight Measurement Method 1 1 [facility] Weight (Calculated Kilograms) 84.82 84.82 [facility] Weight 3104 3104 [facility] Temperature Source 7 7 [facility] Temperature 96.2 96.2 [facility] Respiratory Effort 1 1 [facility] Respiratory Rate 16 16 [facility] Pulse Assessment Method 4 4 [facility] Pulse Rate 93 93 [facility] Height (Calculated Centimeters) 167.64 167. 64 [facility] Height 66 66 [facility] Blood Pressure 122/82 122/82 [facility] Body Mass Index (BMI) 30.2 30.2 [facility] Weight Measurement Method 1 1 [facility] Weight (Calculated Kilograms) 84.82 84.82 [facility] Weight 2992 2992 [facility] Temperature Source 7 7 [facility] Temperature 97.6 97.6 [facility] Respiratory Effort 1 1 [facility] Respiratory Rate 15 15 [facility] Pulse Assessment Method 4 4 [facility] Pulse Rate 86 86 [facility] Height (Calculated Centimeters) 167.64 167. 64 [facility] Height 66 66 [facility] Blood Pressure 99/60 99/60 [facility] Body Mass Index (BMI) 30.2 30.2 [facility] Weight Measurement Method 1 1 [facility] Weight (Calculated Kilograms) 84.82 84.82 [facility] Weight 2992 2992 [facility] Temperature Source 7 7 [facility] Temperature 98.3 98.3 [facility] Respiratory Effort 1 1 [facility] Respiratory Rate 16 16 [facility] Pulse Assessment Method 4 4 [facility] Pulse Rate 87 87 [facility] Height (Calculated Centimeters) 167.64 167. 64 [facility] Height 66 66 [facility] Blood Pressure 99/60 99/60 [facility] Body Mass Index (BMI) 30.2 30.2 [facility] Weight (Calculated Kilograms) 61.69 61.69 [facility] Height (Calculated Centimeters) 170.18 170. 18 [facility] Body Mass Index (BMI) 21.2 21.2 [facility] Weight (Calculated Kilograms) 61.69 61.69 [facility] Height (Calculated Centimeters) 170.18 170. 18 [facility] Body Mass Index (BMI) 21.2 21.2 [facility] ID Date Data Source [id number] 07/09/2020 12:03:00 AM EDT [facility] Name Value Range Interpretation Code Description Data Source(s) Weight (Calculated Kilograms) 61.69 61.69 [facility] Height (Calculated Centimeters) 170.18 170. 18 [facility] Body Mass Index (BMI) 21.2 21.2 [facility] ID Date Data Source [id number] 07/22/2020 07:39:00 AM EDT [facility] Name Value Range Interpretation Code Description Data Source(s) Weight Measurement Method 1 1 [facility] Weight (Calculated Kilograms) 61.69 61.69 [facility] Weight 2432 2432 [facility] Temperature Source 7 7 [facility] Temperature 98.6 98.6 [facility] Respiratory Effort 1 1 [facility] Respiratory Rate 15 15 [facility] Pulse Assessment Method 4 4 [facility] Pulse Rate 87 87 [facility] Height (Calculated Centimeters) 170.18 170. 18 [facility] Height 67 67 [facility] Blood Pressure 117/81 117/81 [facility] Body Mass Index (BMI) 21.2 21.2 [facility] Weight Measurement Method 1 1 [facility] Weight (Calculated Kilograms) 61.69 61.69 [facility] Weight 2432 2432 [facility] Temperature Source 7 7 [facility] Temperature 98.6 98.6 [facility] Respiratory Effort 1 1 [facility] Respiratory Rate 15 15 [facility] Pulse Assessment Method 4 4 [facility] Pulse Rate 87 87 [facility] Height (Calculated Centimeters) 170.18 170. 18 [facility] Height 67 67 [facility] Blood Pressure 117/81 117/81 [facility] Body Mass Index (BMI) 21.2 21.2 [facility] Weight Measurement Method 1 1 [facility] Weight (Calculated Kilograms) 61.69 61.69 [facility] Weight 2432 2432 [facility] Temperature Source 7 7 [facility] Temperature 98.6 98.6 [facility] Respiratory Effort 1 1 [facility] Respiratory Rate 15 15 [facility] Pulse Assessment Method 4 4 [facility] Pulse Rate 87 87 [facility] Height (Calculated Centimeters) 170.18 170. 18 [facility] Height 67 67 [facility] Blood Pressure 117/81 117/81 [facility] Body Mass Index (BMI) 21.2 21.2 [facility] Weight Measurement Method 1 1 [facility] Weight (Calculated Kilograms) 61.69 61.69 [facility] Weight 2176 2176 [facility] Temperature Source 7 7 [facility] Temperature 97.8 97.8 [facility] Respiratory Effort 1 1 [facility] Respiratory Rate 15 15 [facility] Pulse Assessment Method 4 4 [facility] Pulse Rate 84 84 [facility] Height (Calculated Centimeters) 170.18 170. 18 [facility] Height 67 67 [facility] Blood Pressure 111/73 111/73 [facility] Body Mass Index (BMI) 21.2 21.2 [facility] Weight Measurement Method 1 1 [facility] Weight (Calculated Kilograms) 61.69 61.69 [facility] Weight 2176 2176 [facility] Temperature Source 7 7 [facility] Temperature 97.8 97.8 [facility] Respiratory Effort 1 1 [facility] Respiratory Rate 15 15 [facility] Pulse Assessment Method 4 4 [facility] Pulse Rate 78 78 [facility] Height (Calculated Centimeters) 170.18 170. 18 [facility] Height 67 67 [facility] Blood Pressure 110/70 110/70 [facility] Body Mass Index (BMI) 21.2 21.2 [facility] Weight Measurement Method 1 1 [facility] Weight (Calculated Kilograms) 61.69 61.69 [facility] Weight 2176 2176 [facility] Temperature Source 7 7 [facility] Temperature 97.8 97.8 [facility] Respiratory Effort 1 1 [facility] Respiratory Rate 16 16 [facility] Pulse Assessment Method 4 4 [facility] Pulse Rate 78 78 [facility] Height (Calculated Centimeters) 170.18 170. 18 [facility] Height 67 67 [facility] Blood Pressure 110/70 110/70 [facility] Body Mass Index (BMI) 21.2 21.2 [facility] Patient Treatment Plan of Care Planned Activity Planned Date Details Description Data Source (s) Ibuprofen 400 MG Oral Tablet 03/15/2021 12:00:00 AM EDT eCW1 ([facility]) Acetaminophen 500 MG Oral Tablet 03/15/2021 12:00:00 AM EDT eCW1 ([facility]) Mupirocin 0.02 MG/MG Topical Ointment 03/15/2021 12:00:00 AM EDT eCW1 ([facility]) Ibuprofen 400 MG Oral Tablet 03/15/2021 12:00:00 AM EDT eCW1 ([facility]) Ibuprofen 400 MG Oral Tablet 03/15/2021 12:00:00 AM EDT eCW1 ([facility]) Acetaminophen 500 MG Oral Tablet 03/15/2021 12:00:00 AM EDT eCW1 ([facility]) Mupirocin 0.02 MG/MG Topical Ointment 03/15/2021 12:00:00 AM EDT eCW1 ([facility]) Acetaminophen 500 MG Oral Tablet 03/15/2021 12:00:00 AM EDT eCW1 ([facility]) Mupirocin 0.02 MG/MG Topical Ointment 03/15/2021 12:00:00 AM EDT eCW1 ([facility]) Ibuprofen 400 MG Oral Tablet 03/15/2021 12:00:00 AM EDT eCW1 ([facility]) Acetaminophen 500 MG Oral Tablet 03/15/2021 12:00:00 AM EDT eCW1 ([facility]) Mupirocin 0.02 MG/MG Topical Ointment 03/15/2021 12:00:00 AM EDT eCW1 ([facility]) Ibuprofen 400 MG Oral Tablet 03/15/2021 12:00:00 AM EDT eCW1 ([facility]) Acetaminophen 500 MG Oral Tablet 03/15/2021 12:00:00 AM EDT eCW1 ([facility]) Mupirocin 0.02 MG/MG Topical Ointment 03/15/2021 12:00:00 AM EDT eCW1 ([facility])
[2021-08-30] MEDS ORDERED: NS 1,000 ML IV ONE (19:30)
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
[2021-08-30 19:54] LABS: BASO % 0.3 % (0.0-1.0); EOS # 0.4 10^3/uL (0.0-0.5); EOS % 6.8 % (0.0-3.0); HEMATOCRIT 33.5 % (36.0-47.0); HEMOGLOBIN 10.9 g/dl (12.0-15.5); LYMPH # 2.1 10^3/uL (1.5-5.0); LYMPH % 33.2 % (24.0-44.0); MEAN CORPUSCULAR HEMOGLOBIN 29.5 pg (27.0-33.0); MEAN CORPUSCULAR HGB CONC 32.5 g/dl (32.0-36.5); MEAN CORPUSCULAR VOLUME 90.8 fl (80.0-96.0); MONO # 0.6 10^3/uL (0.0-0.8); MONO % 9.1 % (2.0-8.0); NEUTROPHILS # 3.2 10^3/uL (1.5-8.5); NEUTROPHILS % 50.3 % (36.0-66.0); PLATELET COUNT, AUTOMATED 336 10^3/uL (150-450); RED BLOOD COUNT 3.69 10^6/uL (4.00-5.40); WHITE BLOOD COUNT 6.4 10^3/uL (4.0-10.0)
[2021-08-30 20:13] LABS: AMPHETAMINES LEVEL URINE POSITIVE (NEGATIVE); BARBITURATES URINE NEGATIVE (NEGATIVE); BENZODIAZEPINES URINE NEGATIVE (NEGATIVE); CANNABINOIDS URINE NEGATIVE (NEGATIVE); COCAINE METABOLITE URINE POSITIVE (NEGATIVE); METHADONE URINE NEGATIVE (NEGATIVE); OPIATES URINE POSITIVE (NEGATIVE); PHENCYCLIDINE URINE NEGATIVE (NEGATIVE)
--- NOTE | 2021-08-30 20:20 | REPVR ---
PROCEDURE INFORMATION: Exam: XR Chest Exam date and time: 08/30/2021 7:51 PM Age: 40 years old Clinical indication: Shortness of breath; Additional info: SOB TECHNIQUE: Imaging protocol: XR of the chest. Views: 1 view. COMPARISON: CR PORTABLE CHEST X-RAY 10/29/2020 6:48 PM FINDINGS: Lungs: Unremarkable. No consolidation. Pleural spaces: Unremarkable. No pleural effusion. No pneumothorax. Heart/Mediastinum: Unremarkable. No cardiomegaly. Bones/joints: Unremarkable. IMPRESSION: Negative chest without change from 10/29/2020. Electronically signed by: Sergio Chu On 08/30/2021 20:20:15 PM
[2021-08-30 20:23] LABS: ACETAMINOPHEN LEVEL 6.3 UG/ML (10.0-30.0); ALBUMIN 3.9 GM/DL (3.2-5.2); ALT/SGPT 22 U/L (12-78); BILIRUBIN,DIRECT < 0.1 MG/DL (0.0-0.2); BILIRUBIN,TOTAL 0.2 MG/DL (0.2-1.0); BLOOD UREA NITROGEN 11 MG/DL (7-18); CALCIUM LEVEL 9.2 MG/DL (8.5-10.1); CARBON DIOXIDE LEVEL 28 MEQ/L (21-32); CHLORIDE LEVEL 104 MEQ/L (98-107); CPK CREATINE PHOSPHOKINASE 136 U/L (26-192); CREATININE FOR GFR 0.93 MG/DL (0.55-1.30); ETHYL ALCOHOL (ETHANOL) < 0.003 % (0.000-0.010); GLOMERULAR FILTRATION RATE > 60.0 (>60); GLUCOSE, FASTING 91 MG/DL (70-100); POTASSIUM SERUM 3.2 MEQ/L (3.5-5.1); SALICYLATE LEVEL < 1.7 MG/DL (5.0-30.0); SODIUM LEVEL 138 MEQ/L (136-145); TOTAL PROTEIN 8.5 GM/DL (6.4-8.2)
[2021-08-30 21:40] LABS: RSV AMPLIFICATION NEGATIVE (NEGATIVE)
[2021-08-30] MEDS ORDERED: ERYT5OIN25 OS (22:05)
[2021-08-30 23:07] VITALS: BP 119/72
--- NOTE | 2021-09-01 19:57 | ECGEPIP ---
[facility] - ED Test Date: 2021-08-30 Pat Name: ENRRIQUE YAO Department: Room: - Gender: Female [employer]ist: DULCE : 1980 Requested By: Nela Nieto Order Number: [id number] Reading MD: Dana Singh Measurements Intervals [place] Rate: 86 P: 68 AL: 142 QRS: 72 QRSD: 82 T: 46 QT: 380 QTc: 454 Interpretive Statements Normal sinus rhythm irbbb decreased rate 04/20/21 Electronically Signed on 09-01-2021 19:57:37 EDT by Dana Singh
== END 2021-08-30 23:47 | disposition home or self-care (01) ==
LOC: M ED 18:30
DX: H10.9 Unspecified conjunctivitis (principal); U07.1 COVID-19; F19.10 Other psychoactive substance abuse, uncomplicated; B19.20 Unspecified viral hepatitis C without hepatic coma; Z91.018 Allergy to other foods; Z91.040 Latex allergy status; F17.210 Nicotine dependence, cigarettes, uncomplicated

== ENCOUNTER 2021-10-08 03:33 | Emergency (ER) | payer OTHER ==
[~2021-10-08] VITALS: Ht 167.6 cm; Wt 65.9 kg
[~2021-10-08 03:33] MED LIST changes: +ERYT5OIN25 OS
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
--- OUTSIDE RECORDS SUMMARY | 2021-10-08 03:41 | CCD ---
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 [place] [place] [id number] SP [id number] Self Pay P [id number] S [id number] Problems, Conditions, and Diagnoses Code Display Name Description Problem Type Effective Dates Data Source(s) B97.89 Other viral agents as the cause of disea ses classified elsewhere OTH VIRAL AGENTS THE CAUSE OF DISEASES CLASSD ELSWHR [facility] J[facility].9 Chronic sinusitis, unspecified CHRONIC SINUSITIS, UNSP ECIFIED Diagnosis 02/09/2021 09:39:00 AM [facility] E55.9 Vitamin D deficiency, unspecified VITAMIN D DEFI CIENCY, UNSPECIFIED Diagnosis 02/09/2021 09:39:00 AM [facility] B18.2 Chronic viral hepatitis C CHRONIC VIRAL HEPATITIS C Di agnosis 02/09/2021 09:39:00 AM [facility] D64.9 Anemia, unspecified ANEMIA, UNSPECIFIED Diagnosis 0 02/09/2021 09:39:00 AM [facility] Z87.81 Personal history of (healed) traumatic f racture PERSONAL HISTORY OF (HEALED) TRAUMATIC FRACTURE Diagnosis 02/09/2021 09:39:00 AM [facility] F43.10 Post-traumatic stress disorder, unspecif ied POST-TRAUMATIC STRESS DISORDER, UNSPECIFIED Diagnosis 02/09/2021 [facility] F41.9 Anxiety disorder, unspecified ANXIETY DISORDER, UNSPEC IFIED Diagnosis 02/09/2021 09:39:00 AM EDT [facility] F32.9 Major depressive disorder, single episod e, unspecified MAJOR DEPRESSIVE DISORDER, SINGLE EPISODE, UNSPECIFIED Diagnosis 02/09/2021 09:39:00 AM EDT [facility] F10.21 Alcohol dependence, in remission ALCOHOL DEPENDE NCE, IN REMISSION Diagnosis 02/09/2021 09:39:00 AM EDT [facility] Z91.010 Allergy to peanuts ALLERGY TO PEANUTS Diagnosis 05/2021 09:39:00 AM EDT [facility] Z91.040 Latex allergy status LATEX ALLERGY STATUS Diagnosis 02/09/2021 09:39:00 AM EDT [facility] F12.20 Cannabis dependence, uncomplicated CANNABIS DEPE NDENCE, UNCOMPLICATED Diagnosis 02/09/2021 09:39:00 AM EDT [facility] F15.20 Other stimulant dependence, uncomplicate d OTHER STIMULANT DEPENDENCE, UNCOMPLICATED Diagnosis 02/09/2021 09:39:00 AM EDT [facility] F11.20 Opioid dependence, uncomplicated OPIOID DEPENDEN CE, UNCOMPLICATED Diagnosis 02/09/2021 09:39:00 AM EDT [facility] F43.23 Adjustment disorder with mixed anxiety a nd depressed mood Adjustment Disorder, With mixed anxiety and depressed mood Condition 2020 12:00:00 AM EDT [facility] ([facility]) F11.20 Opioid dependence, uncomplicated Opioid Use Disorder, Severe Condition 08/25/2021 12:00:00 AM EDT [facility] ([facility]) F31.9 Bipolar disorder, unspecified Unspecified [place] r and Related Disorder Condition 08/25/2021 12:00:00 AM EDT [facility] ([facility]) M25.561 [id number] Pain in right knee Problem 03/26/2021 12:00: 00 AM EDT eCW1 ([facility]) M25.562 [id number] Pain in left knee Problem 03/26/2021 12 :00:00 AM EDT eCW1 ([facility]) M25.571 [id number] Pain in right ankle and joints of ri ght foot Problem 03/26/2021 12:00:00 AM EDT eCW1 ([facility]) M25.572 [id number] Pain in left ankle and joints of left peggy t Problem 03/26/2021 12:00:00 AM EDT eCW1 ([facility]) R78.89 [id number] Abnormal lithium level in blood Problem 03/26/2021 12:00:00 AM EDT eCW1 ([facility]) M25.551 [id number] Pain in right hip Problem 03/26/2021 12:00:0 0 AM EDT eCW1 ([facility]) Z53.20 [id number] Patient refused evaluation or treatment P martylem 03/26/2021 12:00:00 AM EDT eCW1 ([facility]) M25.552 [id number] Pain in left hip Problem 03/26/2021 12:00:00 AM EDT eCW1 ([facility]) Z72.53 [id number] High risk bisexual behavior Problem 03/26/2021 12:00:00 AM EDT eCW1 ([facility]) L73.9 [id number] Folliculitis Problem 03/26/2021 12:00:00 AM EDT eCW1 ([facility]) Z86.19 [id number] History of hepatitis C Problem 12:00:00 AM EDT eCW1 ([facility]) F31.62 Bipolar disorder, current episode mixed, moderate Bipolar disorder, current episode mixed, moderate Condition 02/09/2021 12:00:00 AM EDT A [facility] ([facility]) F32.9 Major depressive disorder, single episod e, unspecified Unspecified depressive Disorder Condition 12/15/2020 12:00:00 AM EST [facility] ([facility]) F11.20 Opioid dependence, uncomplicated Opioid Use Disorder, Severe Condition 12/15/2020 12:00:00 AM EST [facility] ([facility]) Surgeries/Procedures Procedure Description Date Indications Data Source(s) TEMPMHCTelemed 30" Psychotherapy 021 12:00:00 AM EDT - 08/25/2021 12:00:00 AM EDT [facility] ([facility]) TEMPMHCTelemed 30" Psychotherapy 08/25/2021 12:00:00 A M EDT [facility] ([facility]) [id number]"Psychotherapy 12:00:00 AM EDT - 08/11/2021 12:00:00 AM EDT [facility] ([facility]) [id number]"Psychotherapy 08/11/2021 12:00:00 AM EDT [facility] ([facility]) Extended Individual Psychotherapy - 45 min 07/07/2021 12:00:00 AM EDT - 07/07/2021 12:00:00 AM EDT [facility] ([facility]) Extended Individual Psychotherapy - 45 min 12:00:00 AM EDT [facility] ([facility]) Psychiatric Diagnostic Evaluation (Non-Medical) 06/23/2021 12:00:00 AM EDT - 06/23/2021 12:00:00 AM EDT [facility] ([facility]) Psychiatric Diagnostic Evaluation (Non-Medical) 2020 12:00:00 AM EDT [facility] ([facility]) Extended Individual Psychotherapy - 45 min 06/09/2021 12:00:00 AM EDT - 06/09/2021 12:00:00 AM EDT [facility] ([facility]) Extended Individual Psychotherapy - 45 min 12:00:00 AM EDT [facility] ([facility]) TEMP Forensic Telemed DC MM E/M 3 Est Pt 05/05/2021 12:00:00 AM EDT - 05/05/2021 12:00:00 AM EDT [facility] ([facility]) TEMP Forensic Telemed DC MM E/M 3 Est Pt 05/05/2021 12 :00:00 AM EDT [facility] ([facility]) Extended Individual Psychotherapy - 45 min 04/28/2021 12:00:00 AM EDT - 04/28/2021 12:00:00 AM EDT [facility] ([facility]) Extended Individual Psychotherapy - 45 min 12:00:00 AM EDT [facility] ([facility]) Telemed Diagnostic Eval 03/30/2021 12:00 :00 AM EDT - 03/30/2021 12:00:00 AM EDT [facility] ([facility]) Telemed Diagnostic Eval 03/30/2021 12:00:00 AM EDT [facility] ([facility]) Extended Individual Psychotherapy - 45 min 03/23/2021 12:00:00 AM EDT - 03/23/2021 12:00:00 AM EDT [facility] ([facility]) Extended Individual Psychotherapy - 45 min 12:00:00 AM EDT [facility] ([facility]) Extended Individual Psychotherapy - 45 min 03/11/2021 12:00:00 AM EDT - 03/11/2021 12:00:00 AM EDT [facility] ([facility]) Extended Individual Psychotherapy - 45 min 12:00:00 AM EDT [facility] ([facility]) Individual Counseling for Substance Abuse Treatment, C ognitive-Behavioral INDIV SENSOR OPERATOR FOR SUBSTANCE ABUSE, COGNITIVE BEHAVIORAL 02/09/2021 12:00:00 AM [facility] Group Counseling for Substance Abuse Treatment, Motiva tional Enhancement GROUP SENSOR OPERATOR FOR SUBSTANCE ABUSE, MOTIVATIONAL ENHANCE 02/09/2021 12:00:00 AM [facility] Group Counseling for Substance Abuse Treatment, Spirit ual GROUP COUNSELING FOR SUBSTANCE ABUSE TREATMENT, SPIRITUAL 02/09/2021 12:00:00 AM [facility] Group Counseling for Substance Abuse Treatment, Cognit jolly-Behavioral GROUP SENSOR OPERATOR FOR SUBSTANCE ABUSE, COGNITIVE BEHAVIORAL 02/09/2021 12:00:00 AM [facility] Longterm - Case Management 02/09/2021 12:00: 00 AM EDT - 02/09/2021 12:00:00 AM EDT [facility] ([facility]) Longterm - Case Management 02/08/2021 12:00:00 AM EDT [facility] ([facility]) Extended Individual Psychotherapy - 45 min 01/31/2021 12:00:00 AM EDT - 01/31/2021 12:00:00 AM EDT [facility] ([facility]) Extended Individual Psychotherapy - 45 min 12:00:00 AM EDT [facility] ([facility]) Brief Individual Psychotherapy - 30 min 01/31/2021 12:00:00 AM EDT - 01/31/2021 12:00:00 AM EDT [facility] ([facility]) Brief Individual Psychotherapy - 30 min 01/31/2021 12: 00:00 AM EDT [facility] ([facility]) Extended Individual Psychotherapy - 45 min 01/05/2021 12:00:00 AM EST - 01/05/2021 12:00:00 AM EST [facility] ([facility]) Extended Individual Psychotherapy - 45 min 12:00:00 AM EST [facility] ([facility]) Extended Individual Psychotherapy - 45 min 12/24/2020 12:00:00 AM EST - 12/24/2020 12:00:00 AM EST [facility] ([facility]) Extended Individual Psychotherapy - 45 min 12:00:00 AM EST [facility] ([facility]) RADEX HAND MINIMUM 3 VIEWS 12/22/2020 12:00:00 AM EST [facility] ([facility]) Telemed Diagnostic Eval 12/21/2020 12:00 :00 AM EST - 12/21/2020 12:00:00 AM EST [facility] ([facility]) Telemed Diagnostic Eval 12/21/2020 12:00:00 AM EST [facility] ([facility]) Extended Individual Psychotherapy - 45 min 12/15/2020 12:00:00 AM EST - 12/15/2020 12:00:00 AM EST [facility] ([facility]) Extended Individual Psychotherapy - 45 min 12:00:00 AM EST [facility] ([facility]) Extended Individual Psychotherapy - 45 min 11/30/2020 12:00:00 AM EST - 11/30/2020 12:00:00 AM EST [facility] ([facility]) Extended Individual Psychotherapy - 45 min 12:00:00 AM EST [facility] ([facility]) RADEX HAND MINIMUM 3 VIEWS 11/25/2020 12:00:00 AM EST [facility] ([facility]) FX Metacarpal W/Manipulation 11/12/2020 12:00:00 AM ES T [facility] ([facility]) RADEX HAND MINIMUM 3 VIEWS 11/12/2020 12:00:00 AM EST [facility] ([facility]) RADEX HAND MINIMUM 3 VIEWS 11/12/2020 12:00:00 AM EST [facility] ([facility]) CLTX METACARPAL FX W/O MANIPULATION EACH BONE 11/12/19 12:00:00 AM EST [facility] ([facility]) Crisis intervention service, per 15 minutes 11/10/2020 12:00:00 AM EST - 11/10/2020 12:00:00 AM EST [facility] ([facility]) Crisis intervention service, per 15 minutes 11/10/2020 12:00:00 AM EST [facility] ([facility]) Crisis intervention service, per 15 minutes 11/10/2020 12:00:00 AM EST - 11/10/2020 12:00:00 AM EST [facility] ([facility]) Crisis intervention service, per 15 minutes 11/10/2020 12:00:00 AM EST - 11/10/2020 12:00:00 AM EST [facility] ([facility]) Crisis intervention service, per 15 minutes 11/09/2020 12:00:00 AM EST [facility] ([facility]) Crisis intervention service, per 15 minutes 11/09/2020 12:00:00 AM EST [facility] ([facility]) Crisis intervention service, per 15 minutes 11/08/2020 12:00:00 AM EST - 11/08/2020 12:00:00 AM EST [facility] ([facility]) Crisis intervention service, per 15 minutes 11/08/2020 12:00:00 AM EST [facility] ([facility]) Results ID Date Data Source [id number] 08/30/2021 08:35:00 PM EDT [facility] Name Value Range Interpretation Code Description Data Maggie rce(s) Supporting Document(s) SARS coronavirus 2 RNA [Presence] in Res piratory specimen by TAL with probe detection POSITIVE [facility] This lab was ordered by [facility] a nd reported by [facility]. ID Date Data Source [id number] 08/26/2021 12:00:00 AM EDT [facility] Name Value Range Interpretation Code Description Data Maggie rce(s) Supporting Document(s) SARS-CoV2 Rapid Antigen Negative [facility] This lab [facility] and reported by [facility]. ID Date Data Source [id number] 03/07/2021 12:23:00 PM EDT [facility] Name Value Range Interpretation Code Description Data Maggie rce(s) Supporting Document(s) [place] 0.60-1.20 Normal (applies to non-numeric resul ts) [facility] ID Date Data Source [id number] 03/07/2021 12:23:00 PM EDT [facility] Name Value Range Interpretation Code Description Data Maggie rce(s) Supporting Document(s) Sodium 140 mmol/L 137-145 Normal (applies to non-numeric resul ts) [facility] Potassium 3.5-5.1 Normal (applies to non-numeric resul ts) [facility] Chloride 108 mmol/L 98-112 Normal (applies to non-numeric resul ts) [facility] Carbon Dioxide CO2 22.0-33.0 Normal (applies to non-numer ic results) [facility] Anion Gap 4.0-11.0 Normal (applies to non-numeric resul ts) [facility] BUN 16 mg/dL 7-17 Normal (applies to non-numeric resul ts) [facility] Creatinine 0.70-1.20 Normal (applies to non-numeric resul ts) [facility] GFR 73 mL/min >60 Normal (applies to non-numeric resul ts) [facility] Result based on MDRD formula. Glucose Level 96 mg/dL 74-99 Normal (applies to non-numeric re sults) [facility] The reference range is only applicable w hen fasting. Calcium-Uncorrected 8.4-10.2 Normal (applies to non-nume renan results) [facility] Corrected Calcium 8.4-10.2 Normal (applies to non-numeri c results) [facility] Bilirubin,Total 0.2-1.3 Normal (applies to non-numeric results) [facility] SGOT(AST) 44 U/L 14-36 Above high normal [facility] SGPT(ALT) 59 U/L 9-52 Above high normal [facility] Alkaline Phosphatase 107 U/L 38-126 Normal (applies to non-num charissa results) [facility] can increase Alkaline Phosp le vels up to 2 times the normal adult value. Normal values for children and adolescents are 2 to 3 times the normal adult value. Total Protein 6.3-8.2 Normal (applies to non-numeric re sults) [facility] Albumin 3.5-5.0 Normal (applies to non-numeric resul ts) [facility] ID Date Data Source [id number] 02/23/2021 04:44:00 PM EDT [facility] Name Value Range Interpretation Code Description Data Maggie rce(s) Supporting Document(s) Opiate Screen,Urine Negative Normal (applies to non-nume renan results) [facility] Amphetamine Screen,Urine Negative Normal (applies to non -numeric results) [facility] Benzodiazepines Scrn,Ur result Negative N ormal (applies to non-numeric results) [facility] Cocaine Screen,Urine Negative Normal (applies to non-num charissa results) [facility] Methadone Screen,Urine Negative Normal (applies to non-n umeric results) [facility] Cannabinoid Screen, Ur Negative Normal (applies to non-n umeric results) [facility] Therapeutic Drug Ranges for Emergency an d Rehabilitation Threshold Levels (ng/mL) Cocaine 300 Opiates 300 Cannabinoids 50 Barbiturates 200 Benzodiazepine 200 Methadone 300 Amphetamines 1000 All positive findings are presumptive and unconfirmed. Confirmation of positive results are performed only at request of provider. Unconfirmed results must not be used for non-medical purposes (i.e. pre-employment and legal purposes) ID Date Data Source [id number] 02/23/2021 11:05:00 AM EDT [facility] Name Value Range Interpretation Code Description Data Maggie rce(s) Supporting Document(s) Respiratory specimen severe acute respir atory syndrome coronavirus 2 (SARS-CoV-2) RNA Not Detected [facility] This lab was ordered by [facility] alyssa and reported by [facility]. ID Date Data Source [id number] 02/23/2021 02:09:00 PM EDT [facility] Manual entry verified by Bruno Pickens 02/23/21 1400 Negative results do not preclude SARS-CoV-2 infection and should not be used as the sole basis for treatment or other patient management decisions. Negative results must be combined with clinical observations, patient history, and epidemiological information. Testing was performed using the Unified Office[employer] real-time nested multiplexed PCR Respiratory Panel 2.1 [...] be found at the following links: Patients: https://www.fda.gov/media/685189/download Healthcare Providers: https://www.fda.gov/media/758035/download THIS IS A STATE REPORTABLE COMMUNICABLE DISEASE. Test Performed By: [facility] [address] [place] [address] Director: Stacy Benz MD Methodology: Multiplexed PCR Name Value Range Interpretation Code Description Data Maggie rce(s) Supporting Document(s) ID Date Data Source [id number] 02/23/2021 11:02:00 AM EDT [facility] Name Value Range Interpretation Code Description Data Maggie rce(s) Supporting Document(s) Respiratory specimen severe acute respir atory syndrome coronavirus 2 (SARS-CoV-2) RNA Negative (qualifier value) [facility] This lab was ordered by [facility] alyssa and reported by [facility]. ID Date Data Source [id number] 02/23/2021 11:42:00 AM EDT [facility] First test? NOEmployed in healthcare? NOSymptomatic per CDC? NOHospitalized? NOICU? NOResident in congregated care? ex alf, ARC NO? NONegative results should be treated [...] Certificate of Accreditation. Factsheets for healthcare providers: https://www.fda.gov/media/775925/download Factsheets for patients: https://www.fda.gov/media/654081/download The ID NOW Instrument is a rapid molecular in vitro diagnostic test utilizing an isothermal nucleic acid amplification technology intended for the qualitative detection of nucleic acid from the SARS-CoV-2 viral RNA. THIS IS A STATE REPORTABLE COMMUNICABLE DISEASE. Manual entry verified by Bruno Pickens 02/23/21 1142 Test Performed By: [facility] [address] [place], [place] [id number] Director: Stacy Benz MD Name Value Range Interpretation Code Description Data Maggie rce(s) Supporting Document(s) ID Date Data Source [id number] 02/23/2021 11:19:00 AM EDT [facility] Name Value Range Interpretation Code Description Data Maggie rce(s) Supporting Document(s) LAB Glucose,Fingerstick 106 mg/dL 70-110 Normal ( applies to non-numeric results) [facility] ID Date Data Source [id number] 02/22/2021 10:53:00 AM EDT [facility] Name Value Range Interpretation Code Description Data Maggie rce(s) Supporting Document(s) [place] 0.60-1.20 Below low normal [facility] ID Date Data Source [id number] 02/14/2021 11:47:00 AM EDT [facility] Name Value Range Interpretation Code Description Data Maggie rce(s) Supporting Document(s) [place] 0.60-1.20 Below low normal [facility] ID Date Data Source [id number] 03/13/2021 04:43:00 PM EDT [facility] Name Value Range Interpretation Code Description Data Maggie rce(s) Supporting Document(s) Hepatitis C Antibody Screen Negative Normal (appli es to non-numeric results) [facility] Supplemental testing for HCV RNA is orde red to rule out active HCV infection. Spyawr-hq-rvskht ratio is >=8.00. Test Performed by: [place] [address] Acetylene Torch Burner: Ruben Cohen M.D. Ph.D.; CLIA# [id number] THIS IS A STATE REPORTABLE COMMUNICABLE DISEASE. Hep C Virus Qnt (Rfx'd) [id number] IU/mL Undetected Normal ( applies to non-numeric results) [facility] Result in log IU/mL is 5.05. ---------ADDITIONAL INFORMATION The quantification range of this assay is 15 to 100,000,000 IU/mL (1.18 log to 8.00 log IU/mL). Testing was performed using the iftikhar HCV test ([employer] with the iftikhar 6800 System. Test Performed by: [place] [address] Acetylene Torch Burner: Ruben Cohen M.D. Ph.D.; CLIA# [id number] THIS IS A STATE REPORTABLE COMMUNICABLE DISEASE. ID Date Data Source [id number] 02/14/2021 10:10:00 PM EDT [facility] Name Value Range Interpretation Code Description Data Maggie rce(s) Supporting Document(s) QFTB QuantiFERON-TB Gold+ res Negative No rmal (applies to non-numeric results) [facility] No interferon-gamma response to M. tuber culosis antigens was detected. Infection with M. tuberculosis is unlikely. A single negative result does not exclude infection with M. tuberculosis. In patients at high risk for M.tuberculosis infection, a second test should be considered in accordance with the 2017 ATS/IDSA/CDC Clinical Practice Guidelines for Diagnosis of Tuberculosis in Adults and Children [Grey DM et. al. Clin. Infect. Dis. 2017;64(2):111-115]. The reference range for the 'TB1 Ag minus Nil Result' and 'TB2 Ag minus Nil Result' is an Interferon-gamma level <0.35 IU/mL. QFTB TB1 Ag min Nil res Normal (applies to non- numeric results) [facility] QFTB TB2 Ag min Nil res Normal (applies to non- numeric results) [facility] QFTB Mitogen minus Nil result Normal (applies t o non-numeric results) [facility] QFTB Nil result Normal (applies to non-numeric results) [facility] Test Performed by: [facility] [place] [address] Acetylene Torch Burner: Ruben Cohen M.D. Ph.D.; CLIA# [id number] ID Date Data Source [id number] 02/10/2021 02:07:00 PM EDT [facility] Value Range Interpretation Code Description Data Maggie rce(s) Supporting Document(s) ID Date Data Source [id number] 02/10/2021 02:07:00 PM EDT [facility] Name Value Range Interpretation Code Description Data Maggie rce(s) Supporting Document(s) Hep C Ab-T Test Nonreactive [facility] Results called 02/10/21 1404, MICHAELA BARRETO read back information to Duncan Blake THIS [...] be requested by the physician if necessary. ([facility] MMWR No RR-3. 2002). ID Date Data Source [id number] 02/10/2021 02:07:00 PM T [facility] Name Value Range Interpretation Code Description Data Maggie rce(s) Supporting Document(s) ID Date Data Source [id number] 02/10/2021 02:07:00 PM T [facility] Name Value Range Interpretation Code Description Data Maggie rce(s) Supporting Document(s) Vitamin D,Total (25OH) 30.0-100.0 Below low normal [facility] Reference Range: <10 ng/mL: Deficien t 10-30 ng/mL: Insufficient 30-100 ng/mL: Sufficient >100 ng/mL: Toxicity possible ID Date Data Source [id number] 02/10/2021 02:07:00 PM EDT [facility] Name Value Range Interpretation Code Description Data Maggie rce(s) Supporting Document(s) ID Date Data Source [id number] 02/10/2021 12:27:00 PM EDT [facility] Name Value Range Interpretation Code Description Data Maggie rce(s) Supporting Document(s) Sodium 137 mmol/L 137-145 Normal (applies to non-numeric resul ts) [facility] Potassium 3.5-5.1 Normal (applies to non-numeric resul ts) [facility] Chloride 107 mmol/L 98-112 Normal (applies to non-numeric resul ts) [facility] Carbon Dioxide CO2 22.0-33.0 Normal (applies to non-numer ic results) [facility] Anion Gap 4.0-11.0 Normal (applies to non-numeric resul ts) [facility] BUN 16 mg/dL 7-17 Normal (applies to non-numeric resul ts) [facility] Creatinine 0.70-1.20 Normal (applies to non-numeric resul ts) [facility] GFR 79 mL/min >60 Normal (applies to non-numeric resul ts) [facility] Result based on MDRD formula. Glucose Level 101 mg/dL 74-99 Above high normal [facility] The reference range is only applicable w hen fasting. Calcium-Uncorrected 8.4-10.2 Normal (applies to non-nume renan results) [facility] Corrected Calcium 8.4-10.2 Normal (applies to non-numeri c results) [facility] Bilirubin,Total 0.2-1.3 Normal (applies to non-numeric results) [facility] Bilirubin,Direct 0.0-0.3 Normal (applies to non-numeric results) [facility] SGOT(AST) 41 U/L 14-36 Above high normal [facility] SGPT(ALT) 56 U/L 9-52 Above high normal [facility] Alkaline Phosphatase 81 U/L 38-126 Normal (applies to non-num charissa results) [facility] can increase Alkaline Phosp le vels up to 2 times the normal adult value. Normal values for children and adolescents are 2 to 3 times the normal adult value. CPK 775 U/L 26-192 Above high normal [facility] Total Protein 6.3-8.2 Normal (applies to non-numeric re sults) [facility] Albumin 3.5-5.0 Normal (applies to non-numeric resul ts) [facility] Thyroid Stimulate Hormone TSH 0.358-3.740 No rmal (applies to non-numeric results) [facility] ID Date Data Source [id number] 02/10/2021 12:27:00 PM EDT [facility] Name Value Range Interpretation Code Description Data Maggie rce(s) Supporting Document(s) Magnesium 1.80-2.40 Normal (applies to non-numeric resul ts) [facility] ID Date Data Source [id number] 02/10/2021 12:27:00 PM EDT [facility] Name Value Range Interpretation Code Description Data Maggie rce(s) Supporting Document(s) C-Reactive Protein,Wide Range <3.00 Normal (applies t o non-numeric results) [facility] ID Date Data Source [id number] 02/10/2021 12:27:00 PM EDT [facility] Name Value Range Interpretation Code Description Data Maggie rce(s) Supporting Document(s) [place] 0.60-1.20 Below low normal [facility] ID Date Data Source [id number] 02/10/2021 11:52:00 AM EDT [facility] Name Value Range Interpretation Code Description Data Maggie rce(s) Supporting Document(s) White Blood Count 4.8-10.8 Normal (applies to non-numeri c results) [facility] Red Blood Count 3.68-5.22 Below low normal [facility] Hemoglobin 11.2-15.7 Below low normal [facility] Hematocrit 34.1-44.9 Below low normal [facility] Mean Corpuscular Volume 81-99 Normal (applies to non- numeric results) [facility] Mean Corpuscular Hemoglobin 27.0-33.0 Normal (appli es to non-numeric results) [facility] Mean Corpuscular HGB Conc 32.0-36.0 Normal (applies to no n-numeric results) [facility] Red Cell Distribution Width 11.5-14.5 Normal (appli es to non-numeric results) [facility] Platelet Count 310 X10 3/uL 130-450 Normal (applies to non-numeric results) [facility] Mean Platelet Volume 9.5-12.7 Normal (applies to non-num charissa results) [facility] Imm Grans% (AUTO) 0 % 0-2 Normal (applies to non-numeri c results) [facility] Neutrophils % (AUTO) 52 % 40-75 Normal (applies to non-num charissa results) [facility] Lymphocytes % (AUTO) 32 % 21-46 Normal (applies to non-num charissa results) [facility] Monocytes % (AUTO) 11 % 5-12 Normal (applies to non-numer ic results) [facility] Eosinophils % (AUTO) 4 % 1-5 Normal (applies to non-num charissa results) [facility] Basophils % (AUTO) 1 % 0-1 Normal (applies to non-numer ic results) [facility] Imm Grans# (AUTO) 0.0-0.5 Normal (applies to non-numeri c results) [facility] Neutrophils # (AUTO) 1.5-8.1 Normal (applies to non-num charissa results) [facility] Lymphocytes # (AUTO) 1.0-3.1 Normal (applies to non-num charissa results) [facility] Monocytes # (AUTO) 0.2-1.3 Normal (applies to non-numer ic results) [facility] Eosinophils# (AUTO) 0.0-0.5 Normal (applies to non-nume renan results) [facility] Basophils # (AUTO) 0.0-0.1 Normal (applies to non-numer ic results) [facility] ID Date Data Source [id number] 02/09/2021 10:00:00 AM EDT [facility] Name Value Range Interpretation Code Description Data Maggie rce(s) Supporting Document(s) Respiratory specimen severe acute respir atory syndrome coronavirus 2 (SARS-CoV-2) RNA Negative (qualifier value) [facility] This lab was ordered by [facility] alyssa and reported by [facility]. ID Date Data Source [id number] 02/09/2021 10:42:00 AM EDT [facility] Negative results should be treated as pr [...] Certificate of Accreditation. Factsheets for healthcare providers: https://www.fda.gov/media/315914/download Factsheets for patients: https://www.fda.gov/media/021060/download The ID NOW Instrument is a rapid molecular in vitro diagnostic test utilizing an isothermal nucleic acid amplification technology intended for the qualitative detection of nucleic acid from the SARS-CoV-2 viral RNA. THIS IS A STATE REPORTABLE COMMUNICABLE DISEASE. Manual entry verified by Bruno Pickens 02/09/21 1042 Test Performed By: [facility] [address] [place] [address] Director: Stacy Benz MD Name Value Range Interpretation Code Description Data Maggie rce(s) Supporting Document(s) ID Date Data Source [id number] 02/09/2021 11:46:00 AM EDT [facility] Name Value Range Interpretation Code Description Data Maggie rce(s) Supporting Document(s) Opiate Screen,Urine Negative Normal (applies to non-nume renan results) [facility] Amphetamine Screen,Urine Negative Normal (applies to non -numeric results) [facility] Benzodiazepines Scrn,Ur result Negative N ormal (applies to non-numeric results) [facility] Cocaine Screen,Urine Negative Normal (applies to non-num charissa results) [facility] Methadone Screen,Urine Negative Normal (applies to non-n umeric results) [facility] Cannabinoid Screen, Ur Negative Normal (applies to non-n umeric results) [facility] Therapeutic Drug Ranges for Emergency [...] and legal purposes) ID Date Data Source [id number] 02/09/2021 11:39:00 AM EDT [facility] Name Value Range Interpretation Code Description Data Maggie rce(s) Supporting Document(s) Color,Urine Yellow Normal (applies to non-numeric resu lts) [facility] Clarity,Urine Clear Normal (applies to non-numeric re sults) [facility] Specific [place],Urine 1.001-1.030 Normal (applies to non- numeric results) [facility] PH,Urine 5.0-8.0 Normal (applies to non-numeric resul ts) [facility] Protein,Urine Negative Normal (applies to non-numeric re sults) [facility] Glucose,Urine (UA) Negative Normal (applies to non-numer ic results) [facility] Ketones,Urine Negative Normal (applies to non-numeric re sults) [facility] Blood,Urine Negative Normal (applies to non-numeric resu lts) [facility] Bilirubin,Urine Negative Normal (applies to non-numeric results) [facility] Urobilinogen,Urine Norm 0.2-1 Normal (applies to non-numer ic results) [facility] Leukocyte Esterase,Urine Negative [facility] Nitrite,Urine Negative Normal (applies to non-numeric re sults) [facility] ID Date Data Source [id number] 02/09/2021 11:39:00 AM EDT [facility] Name Value Range Interpretation Code Description Data Maggie rce(s) Supporting Document(s) RBC,Auto Urine 0-2 Normal (applies to non-numeric r esults) [facility] WBC Urine Auto 0-10 Normal (applies to non-numeric r esults) [facility] Casts,Hyaline,Urine Auto 0-2 Normal (applies to non -numeric results) [facility] Bacteria Urine Auto None Seen Normal (applies to non-nume renan results) [facility] Epithelial Cell Ur Auto None-Few Normal (applies to non- numeric results) [facility] ID Date Data Source [id number] 02/09/2021 11:39:00 AM EDT [facility] Name Value Range Interpretation Code Description Data Maggie rce(s) Supporting Document(s) Urine HCG Negative Normal (applies to non-numeric resul ts) [facility] ID Date Data Source [id number] 10/29/2020 05:15:00 PM EST [facility] Name Value Range Interpretation Code Description Data Maggie rce(s) Supporting Document(s) Respiratory pathogens identified [Type] in Nasopharynx by Probe and target amplification method SARS-CoV-2 (COVID 19) [facility] This lab was ordered by [facility] a nd reported by [facility]. Procedure Social History Code Duration Value Status Description Data Source(s ) Smoking 08/25/2021 12:00:00 AM EDT Unknown if ever smoked comp leted Unknown if ever smoked [facility] ([facility]) Smoking 08/11/2021 12:00:00 AM EDT Unknown if ever smoked comp leted Unknown if ever smoked [facility] ([facility]) Smoking 07/07/2021 12:00:00 AM EDT Unknown if ever smoked comp leted Unknown if ever smoked [facility] ([facility]) Smoking 06/23/2021 12:00:00 AM EDT Unknown if ever smoked comp leted Unknown if ever smoked [facility] ([facility]) Smoking 06/09/2021 12:00:00 AM EDT Unknown if ever smoked comp leted Unknown if ever smoked [facility] ([facility]) Smoking 05/12/2021 12:00:00 AM EDT Never Smoker completed Never S moker eCW1 ([facility]) Smoking 05/12/2021 12:00:00 AM EDT Never Smoker completed Never S moker eCW1 ([facility]) Smoking 05/12/2021 12:00:00 AM EDT Never Smoker completed Never S moker eCW1 ([facility]) Smoking 05/05/2021 12:00:00 AM EDT Unknown if ever smoked comp leted Unknown if ever smoked [facility] ([facility]) Smoking 04/28/2021 12:00:00 AM EDT Never Smoker completed Never S moker eCW1 ([facility]) Smoking 04/28/2021 12:00:00 AM EDT Unknown if ever smoked comp leted Unknown if ever smoked [facility] ([facility]) Smoking 04/28/2021 12:00:00 AM EDT Never Smoker completed Never S moker eCW1 ([facility]) Smoking 03/30/2021 12:00:00 AM EDT Unknown if ever smoked comp leted Unknown if ever smoked [facility] ([facility]) Smoking 03/26/2021 12:00:00 AM EDT Never Smoker completed Never S moker eCW1 ([facility]) Smoking 03/26/2021 12:00:00 AM EDT Never Smoker completed Never S moker eCW1 ([facility]) Smoking 03/26/2021 12:00:00 AM EDT Never Smoker completed Never S moker eCW1 ([facility]) Smoking 03/26/2021 12:00:00 AM EDT Never Smoker completed Never S moker eCW1 ([facility]) Smoking 03/26/2021 12:00:00 AM EDT Never Smoker completed Never S moker eCW1 ([facility]) Smoking 03/23/2021 12:00:00 AM EDT Unknown if ever smoked comp leted Unknown if ever smoked [facility] ([facility]) Smoking 03/11/2021 12:00:00 AM EDT Unknown if ever smoked comp leted Unknown if ever smoked [facility] ([facility]) Smoking 02/09/2021 12:00:00 AM EDT Unknown if ever smoked comp leted Unknown if ever smoked [facility] ([facility]) Smoking 01/31/2021 12:00:00 AM EDT Unknown if ever smoked comp leted Unknown if ever smoked [facility] ([facility]) Smoking 01/05/2021 12:00:00 AM EST Unknown if ever smoked comp leted Unknown if ever smoked [facility] ([facility]) Smoking 12/24/2020 12:00:00 AM EST Unknown if ever smoked comp leted Unknown if ever smoked [facility] ([facility]) Smoking 12/21/2020 12:00:00 AM EST Unknown if ever smoked comp leted Unknown if ever smoked [facility] ([facility]) Smoking 12/15/2020 12:00:00 AM EST Unknown if ever smoked comp leted Unknown if ever smoked [facility] ([facility]) Smoking 11/30/2020 12:00:00 AM EST Unknown if ever smoked comp leted Unknown if ever smoked [facility] ([facility]) Smoking 11/10/2020 12:00:00 AM EST Unknown if ever smoked comp leted Unknown if ever smoked [facility] ([facility]) Smoking 11/08/2020 12:00:00 AM EST Unknown if ever smoked comp leted Unknown if ever smoked [facility] ([facility]) Vital Signs ID Date Data Source [id number] Name Value Range Interpretation Code Description Data Source(s) Body weight 189 [lb_av] 189 [lb_av] eCW1 ([facility]) Body height 67 [in_i] 67 [in_i] W[facility] Body mass index (BMI) [Ratio] 29.60 kg/m2 29.60 kg/m2 W1 ([facility]) Heart rate 115 /min 115 /min W1 ([facility]) Respiratory rate 18 /min 18 /min W1 ([facility]) Body temperature 97.9 [degF] 97.9 [degF] eCW1 ( [facility]) Systolic blood pressure 104 mm[Hg] 104 mm[Hg] e CW1 ([facility]) Diastolic blood pressure 72 mm[Hg] 72 mm[Hg] eCW1 ([facility]) Body weight 172.00 [lb_av] 172.00 [lb_av] [email or web address] Body height 0.00 in Normal (applies to non-numeric resu lts) 0.00 in [facility] ([facility]) Body weight Measured 0.00 lbs Normal (applies to n on-numeric results) 0.00 lbs [facility] ([facility]) Body mass index (BMI) [Ratio] 0.00 kg/m2 No rmal (applies to non-numeric results) 0.00 kg/m2 [facility] ([facility]) Systolic blood pressure 0 mm[Hg] Normal (applies t o non-numeric results) 0 mm[Hg] [facility] ([facility]) Diastolic blood pressure 0 mm[Hg] Normal (applies to non-numeric results) 0 mm[Hg] [facility] ([facility]) Systolic blood pressure 115 mm[Hg] 115 mm[Hg] M EDENT ([facility]) Diastolic blood pressure 73 mm[Hg] 73 [facility]Hg[facility] Heart rate 62 /min 62 /min MEDENT ([facility]) Respiratory rate 18 /min 18 /min [facility] ( [facility]) Body temperature 97.8 [degF] 97.8 [degF] [facility] ([facility]) Body weight 148.00 [lb_av] 148.00 [lb_av] MEDEN T ([facility]) ID Date Data Source [id number] 03/13/2021 04:43:00 PM EDT [facility] Name Value Range Interpretation Code Description Data Source(s) Weight Measurement Method 1 1 [facility] Weight (Calculated Kilograms) 84.82 84.82 [facility] Weight 3104 3104 [facility] Temperature Source 7 7 [facility] Temperature 96.2 96.2 [facility] Respiratory Effort 1 1 [facility] Respiratory Rate 16 16 [facility] Pulse Assessment Method 4 4 [facility] Pulse Rate 93 93 [facility] Height (Calculated Centimeters) 167.64 167. 64 [facility] Height 66 66 [facility] Blood Pressure 122/82 122/82 [facility] Body Mass Index (BMI) 30.[address] [facility] Weight Measurement Method 1 1 [facility] Weight (Calculated Kilograms) 84.82 84.82 [facility] Weight 3104 3104 [facility] Temperature Source 7 7 [facility] Temperature 96.2 96.2 [facility] Respiratory Effort 1 1 [facility] Respiratory Rate 16 16 [facility] Pulse Assessment Method 4 4 [facility] Pulse Rate 93 93 [facility] Height (Calculated Centimeters) 167.64 167. 64 [facility] Height 66 66 [facility] Blood Pressure 122/82 122/82 [facility] Body Mass Index (BMI) 30.[address] [facility] Weight Measurement Method 1 1 [facility] Weight (Calculated Kilograms) 84.82 84.82 [facility] Weight 2992 2992 [facility] Temperature Source 7 7 [facility] Temperature 97.6 97.6 [facility] Respiratory Effort 1 1 [facility] Respiratory Rate 15 15 [facility] Pulse Assessment Method 4 4 [facility] Pulse Rate 86 86 [facility] Height (Calculated Centimeters) 167.64 167. 64 [facility] Height 66 66 [facility] Blood Pressure 99/60 99/60 [facility] Body Mass Index (BMI) 30.[address] [facility] Weight Measurement Method 1 1 [facility] Weight (Calculated Kilograms) 84.82 84.82 [facility] Weight 2992 2992 [facility] Temperature Source 7 7 [facility] Temperature 98.3 98.3 [facility] Respiratory Effort 1 1 [facility] Respiratory Rate 16 16 [facility] Pulse Assessment Method 4 4 [facility] Pulse Rate 87 87 [facility] Height (Calculated Centimeters) 167.64 167. 64 [facility] Height 66 66 [facility] Blood Pressure 99/60 99/60 [facility] Body Mass Index (BMI) 30.[address] [facility] Weight (Calculated Kilograms) 61.69 61.69 [facility] Height (Calculated Centimeters) 170.18 170. 18 [facility] Body Mass Index (BMI) 21.[address] [facility] Weight (Calculated Kilograms) 61.69 61.69 [facility] Height (Calculated Centimeters) 170.18 170. 18 [facility] Body Mass Index (BMI) 21.[address] [facility] Patient Treatment Plan of Care Planned Activity Planned Date Details Description Data Source (s) Ibuprofen 400 MG Oral Tablet 03/15/2021 12:00:00 AM EDT eCW1 ([facility]) Acetaminophen 500 MG Oral Tablet 03/15/2021 12:00:00 AM EDT eCW1 ([facility]) Mupirocin 0.02 MG/MG Topical Ointment 03/15/2021 12:00:00 AM EDT eCW1 ([facility]) Ibuprofen 400 MG Oral Tablet 03/15/2021 12:00:00 AM EDT eCW1 ([facility]) Ibuprofen 400 MG Oral Tablet 03/15/2021 12:00:00 AM EDT eCW1 ([facility]) Acetaminophen 500 MG Oral Tablet 03/15/2021 12:00:00 AM EDT eCW1 ([facility]) Mupirocin 0.02 MG/MG Topical Ointment 03/15/2021 12:00:00 AM EDT eCW1 ([facility]) Acetaminophen 500 MG Oral Tablet 03/15/2021 12:00:00 AM EDT eCW1 ([facility]) Mupirocin 0.02 MG/MG Topical Ointment 03/15/2021 12:00:00 AM EDT eCW1 ([facility]) Ibuprofen 400 MG Oral Tablet 03/15/2021 12:00:00 AM EDT eCW1 ([facility]) Acetaminophen 500 MG Oral Tablet 03/15/2021 12:00:00 AM EDT eCW1 ([facility]) Mupirocin 0.02 MG/MG Topical Ointment 03/15/2021 12:00:00 AM EDT [email or web address] ([facility]) Ibuprofen 400 MG Oral Tablet 03/15/2021 12:00:00 AM EDT [email or web address] ([facility]) Acetaminophen 500 MG Oral Tablet 03/15/2021 12:00:00 AM EDT [email or web address] ([facility]) Mupirocin 0.02 MG/MG Topical Ointment 03/15/2021 12:00:00 AM EDT [email or web address] ([facility])
[2021-10-08] MEDS ORDERED: NS 1,000 ML IV ONE (07:35)
--- OUTSIDE RECORDS SUMMARY | 2021-10-08 07:55 | CCD ---
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 AM [facility] B18.2 Chronic viral hepatitis C CHRONIC VIRAL HEPATITIS C Di agnosis 02/09/2021 09:39:00 AM [facility] D64.9 Anemia, unspecified ANEMIA, UNSPECIFIED Diagnosis 0 02/09/2021 09:39:00 AM [facility] Z87.81 Personal history of (healed) traumatic f racture PERSONAL HISTORY OF (HEALED) TRAUMATIC FRACTURE Diagnosis 02/09/2021 09:39:00 AM [facility] F43.10 Post-traumatic stress disorder, unspecif ied POST-TRAUMATIC STRESS DISORDER, UNSPECIFIED Diagnosis 02/09/2021 [facility] F41.9 Anxiety disorder, unspecified ANXIETY DISORDER, UNSPEC IFIED Diagnosis 02/09/2021 09:39:00 AM EDT [facility] F32.9 Major depressive disorder, single episod e, unspecified MAJOR DEPRESSIVE DISORDER, SINGLE EPISODE, UNSPECIFIED Diagnosis 02/09/2021 09:39:00 AM EDT [facility] F10.21 Alcohol dependence, in remission ALCOHOL DEPENDE NCE, IN REMISSION Diagnosis 02/09/2021 09:39:00 AM EDT [facility] Z91.010 Allergy to peanuts ALLERGY TO PEANUTS Diagnosis 05/2021 09:39:00 AM EDT [facility] Z91.040 Latex allergy status LATEX ALLERGY STATUS Diagnosis 02/09/2021 09:39:00 AM EDT [facility] F12.20 Cannabis dependence, uncomplicated CANNABIS DEPE NDENCE, UNCOMPLICATED Diagnosis 02/09/2021 09:39:00 AM EDT [facility] F15.20 Other stimulant dependence, uncomplicate d OTHER STIMULANT DEPENDENCE, UNCOMPLICATED Diagnosis 02/09/2021 09:39:00 AM EDT [facility] F11.20 Opioid dependence, uncomplicated OPIOID DEPENDEN CE, UNCOMPLICATED Diagnosis 02/09/2021 09:39:00 AM EDT [facility] F43.23 Adjustment disorder with mixed anxiety a nd depressed mood Adjustment Disorder, With mixed anxiety and depressed mood Condition 2020 12:00:00 AM EDT [facility] ([facility]) F11.20 Opioid dependence, uncomplicated Opioid Use Disorder, Severe Condition 08/25/2021 12:00:00 AM EDT [facility] ([facility]) F31.9 Bipolar disorder, unspecified Unspecified Bipola r and Related Disorder Condition 08/25/2021 12:00:00 AM EDT [facility] ([facility]) M25.561 [id number] Pain in right knee Problem 03/26/2021 12:00: 00 AM EDT eCW1 ([facility]) M25.562 [id number] Pain in left knee Problem 03/26/2021 12 :00:00 AM EDT eCW1 ([facility]) M25.571 [id number] Pain in right ankle and joints of ri ght foot Problem 03/26/2021 12:00:00 AM EDT eCW1 ([facility]) M25.572 [id number] Pain in left ankle and joints of left peggy t Problem 03/26/2021 12:00:00 AM EDT eCW1 ([facility]) R78.89 [id number] Abnormal lithium level in blood Problem 03/26/2021 12:00:00 AM EDT eCW1 ([facility]) M25.551 [id number] Pain in right hip Problem 03/26/2021 12:00:0 0 AM EDT eCW1 ([facility]) Z53.20 [id number] Patient refused evaluation or treatment P martylem 03/26/2021 12:00:00 AM EDT eCW1 ([facility]) M25.552 [id number] Pain in left hip Problem 03/26/2021 12:00:00 AM EDT eCW1 ([facility]) Z72.53 [id number] High risk bisexual behavior Problem 03/26/2021 12:00:00 AM EDT eCW1 ([facility]) L73.9 [id number] Folliculitis Problem 03/26/2021 12:00:00 AM EDT eCW1 ([facility]) Z86.19 [id number] History of hepatitis C Problem 12:00:00 AM EDT eCW1 ([facility]) F31.62 Bipolar disorder, current episode mixed, moderate Bipolar disorder, current episode mixed, moderate Condition 02/09/2021 12:00:00 AM EDT [facility] ([facility]) F32.9 Major depressive disorder, single episod e, unspecified Unspecified depressive Disorder Condition 12/15/2020 12:00:00 AM EST [facility] ([facility]) F11.20 Opioid dependence, uncomplicated Opioid Use Disorder, Severe Condition 12/15/2020 12:00:00 AM EST [facility] ([facility]) Surgeries/Procedures Procedure Description Date Indications Data Source(s) TEMPMHCTelemed 30" Psychotherapy 021 12:00:00 AM EDT - 08/25/2021 12:00:00 AM EDT [facility] ([facility]) TEMPMHCTelemed 30" Psychotherapy 08/25/2021 12:00:00 A M EDT [facility] ([facility]) [id number]"Psychotherapy 12:00:00 AM EDT - 08/11/2021 12:00:00 AM EDT [facility] ([facility]) [id number]"Psychotherapy 08/11/2021 12:00:00 AM EDT [facility] ([facility]) Extended Individual Psychotherapy - 45 min 07/07/2021 12:00:00 AM EDT - 07/07/2021 12:00:00 AM EDT [facility] ([facility]) Extended Individual Psychotherapy - 45 min 12:00:00 AM EDT [facility] ([facility]) Psychiatric Diagnostic Evaluation (Non-Medical) 06/23/2021 12:00:00 AM EDT - 06/23/2021 12:00:00 AM EDT [facility] ([facility]) Psychiatric Diagnostic Evaluation (Non-Medical) 2020 12:00:00 AM EDT [facility] ([facility]) Extended Individual Psychotherapy - 45 min 06/09/2021 12:00:00 AM EDT - 06/09/2021 12:00:00 AM EDT [facility] ([facility]) Extended Individual Psychotherapy - 45 min 12:00:00 AM EDT [facility] ([facility]) TEMP Forensic Telemed DC MM E/M 3 Est Pt 05/05/2021 12:00:00 AM EDT - 05/05/2021 12:00:00 AM EDT [facility] ([facility]) TEMP Forensic Telemed DC MM E/M 3 Est Pt 05/05/2021 12 :00:00 AM EDT [facility] ([facility]) Extended Individual Psychotherapy - 45 min 04/28/2021 12:00:00 AM EDT - 04/28/2021 12:00:00 AM EDT [facility] ([facility]) Extended Individual Psychotherapy - 45 min 12:00:00 AM EDT [facility] ([facility]) Telemed Diagnostic Eval 03/30/2021 12:00 :00 AM EDT - 03/30/2021 12:00:00 AM EDT [facility] ([facility]) Telemed Diagnostic Eval 03/30/2021 12:00:00 AM EDT [facility] ([facility]) Extended Individual Psychotherapy - 45 min 03/23/2021 12:00:00 AM EDT - 03/23/2021 12:00:00 AM EDT [facility] ([facility]) Extended Individual Psychotherapy - 45 min 12:00:00 AM EDT [facility] ([facility]) Extended Individual Psychotherapy - 45 min 03/11/2021 12:00:00 AM EDT - 03/11/2021 12:00:00 AM EDT [facility] ([facility]) Extended Individual Psychotherapy - 45 min 12:00:00 AM EDT [facility] ([facility]) Individual Counseling for Substance Abuse Treatment, C ognitive-Behavioral INDIV HOTEL LOBBY CONCIERGE FOR SUBSTANCE ABUSE, COGNITIVE BEHAVIORAL 02/09/2021 12:00:00 AM [facility] Group Counseling for Substance Abuse Treatment, Motiva tional Enhancement GROUP HOTEL LOBBY CONCIERGE FOR SUBSTANCE ABUSE, MOTIVATIONAL ENHANCE 02/09/2021 12:00:00 AM [facility] Group Counseling for Substance Abuse Treatment, Spirit ual GROUP COUNSELING FOR SUBSTANCE ABUSE TREATMENT, SPIRITUAL 02/09/2021 12:00:00 AM [facility] Group Counseling for Substance Abuse Treatment, Cognit jolly-Behavioral GROUP HOTEL LOBBY CONCIERGE FOR SUBSTANCE ABUSE, COGNITIVE BEHAVIORAL 02/09/2021 12:00:00 AM [facility] Long Term - Case Management 02/09/2021 12:00: 00 AM EDT - 02/09/2021 12:00:00 AM EDT [facility] ([facility]) Long Term - Case Management 02/08/2021 12:00:00 AM EDT [facility] ([facility]) Extended Individual Psychotherapy - 45 min 01/31/2021 12:00:00 AM EDT - 01/31/2021 12:00:00 AM EDT [facility] ([facility]) Extended Individual Psychotherapy - 45 min 12:00:00 AM EDT [facility] ([facility]) Brief Individual Psychotherapy - 30 min 01/31/2021 12:00:00 AM EDT - 01/31/2021 12:00:00 AM EDT [facility] ([facility]) Brief Individual Psychotherapy - 30 min 01/31/2021 12: 00:00 AM EDT [facility] ([facility]) Extended Individual Psychotherapy - 45 min 01/05/2021 12:00:00 AM EST - 01/05/2021 12:00:00 AM EST [facility] ([facility]) Extended Individual Psychotherapy - 45 min 12:00:00 AM EST [facility] ([facility]) Extended Individual Psychotherapy - 45 min 12/24/2020 12:00:00 AM EST - 12/24/2020 12:00:00 AM EST [facility] ([facility]) Extended Individual Psychotherapy - 45 min 12:00:00 AM EST [facility] ([facility]) RADEX HAND MINIMUM 3 VIEWS 12/22/2020 12:00:00 AM EST [facility] ([facility]) Telemed Diagnostic Eval 12/21/2020 12:00 :00 AM EST - 12/21/2020 12:00:00 AM EST [facility] ([facility]) Telemed Diagnostic Eval 12/21/2020 12:00:00 AM EST [facility] ([facility]) Extended Individual Psychotherapy - 45 min 12/15/2020 12:00:00 AM EST - 12/15/2020 12:00:00 AM EST [facility] ([facility]) Extended Individual Psychotherapy - 45 min 12:00:00 AM EST [facility] ([facility]) Extended Individual Psychotherapy - 45 min 11/30/2020 12:00:00 AM EST - 11/30/2020 12:00:00 AM EST [facility] ([facility]) Extended Individual Psychotherapy - 45 min 12:00:00 AM EST [facility] ([facility]) RADEX HAND MINIMUM 3 VIEWS 11/25/2020 12:00:00 AM EST [facility] ([facility]) FX Metacarpal W/Manipulation 11/12/2020 12:00:00 AM ES T [facility] ([facility]) RADEX HAND MINIMUM 3 VIEWS 11/12/2020 12:00:00 AM EST [facility] ([facility]) RADEX HAND MINIMUM 3 VIEWS 11/12/2020 12:00:00 AM EST [facility] ([facility]) CLTX METACARPAL FX W/O MANIPULATION EACH BONE 11/12/19 12:00:00 AM EST [facility] ([facility]) Crisis intervention service, per 15 minutes 11/10/2020 12:00:00 AM EST - 11/10/2020 12:00:00 AM EST [facility] ([facility]) Crisis intervention service, per 15 minutes 11/10/2020 12:00:00 AM EST [facility] ([facility]) Crisis intervention service, per 15 minutes 11/10/2020 12:00:00 AM EST - 11/10/2020 12:00:00 AM EST [facility] ([facility]) Crisis intervention service, per 15 minutes 11/10/2020 12:00:00 AM EST - 11/10/2020 12:00:00 AM EST [facility] ([facility]) Crisis intervention service, per 15 minutes 11/09/2020 12:00:00 AM EST [facility] ([facility]) Crisis intervention service, per 15 minutes 11/09/2020 12:00:00 AM EST [facility] ([facility]) Crisis intervention service, per 15 minutes 11/08/2020 12:00:00 AM EST - 11/08/2020 12:00:00 AM EST [facility] ([facility]) Crisis intervention service, per 15 minutes 11/08/2020 12:00:00 AM EST [facility] ([facility]) Results ID Date Data Source [id number] 08/30/2021 08:35:00 PM EDT [facility] Name Value Range Interpretation Code Description Data Maggie rce(s) Supporting Document(s) SARS coronavirus 2 RNA [Presence] in Res piratory specimen by TAL with probe detection POSITIVE [facility] This lab was ordered by [facility] a nd reported by [facility]. ID Date Data Source [id number] 08/26/2021 12:00:00 AM EDT [facility] Name Value Range Interpretation Code Description Data Maggie rce(s) Supporting Document(s) SARS-CoV2 Rapid Antigen Negative [facility] This lab was ordered by [facility] and reported by [facility]. ID Date Data Source [id number] 03/07/2021 12:23:[address] [facility] Name Value Range Interpretation Code Description Data Maggie rce(s) Supporting Document(s) [place] 0.60-1.20 Normal (applies to non-numeric resul ts) [facility] ID Date Data Source [id number] 03/07/2021 12:23:[address] [facility] Name Value Range Interpretation Code Description Data Maggie rce(s) Supporting Document(s) Sodium 140 mmol/L 137-145 Normal (applies to non-numeric resul ts) [facility] Potassium 3.5-5.1 Normal (applies to non-numeric resul ts) [facility] Chloride 108 mmol/L 98-112 Normal (applies to non-numeric resul ts) [facility] Carbon Dioxide CO2 22.0-33.0 Normal (applies to non-numer ic results) [facility] Anion Gap 4.0-11.0 Normal (applies to non-numeric resul ts) [facility] BUN 16 mg/dL 7-17 Normal (applies to non-numeric resul ts) [facility] Creatinine 0.70-1.20 Normal (applies to non-numeric resul ts) [facility] GFR 73 mL/min >60 Normal (applies to non-numeric resul ts) [facility] Result based on MDRD formula. Glucose Level 96 mg/dL 74-99 Normal (applies to non-numeric re sults) [facility] The reference range is only applicable w hen fasting. Calcium-Uncorrected 8.4-10.2 Normal (applies to non-nume renan results) [facility] Corrected Calcium 8.4-10.2 Normal (applies to non-numeri c results) [facility] Bilirubin,Total 0.2-1.3 Normal (applies to non-numeric results) [facility] SGOT(AST) 44 U/L 14-36 Above high [address] [facility] SGPT(ALT) 59 U/L 9-52 Above high [address] [facility] Alkaline Phosphatase 107 U/L 38-126 Normal (applies to non-num charissa results) [facility] can increase Alkaline Phosp le vels up to 2 times the normal adult value. Normal values for children and adolescents are 2 to 3 times the normal adult value. Total Protein 6.3-8.2 Normal (applies to non-numeric re sults) [facility] Albumin 3.5-5.0 Normal (applies to non-numeric resul ts) [facility] ID Date Data Source [id number] 02/23/2021 04:44:[address] [facility] Name Value Range Interpretation Code Description Data Maggie rce(s) Supporting Document(s) Opiate Screen,Urine Negative Normal (applies to non-nume renan results) [facility] Amphetamine Screen,Urine Negative Normal (applies to non -numeric results) [facility] Benzodiazepines Scrn,Ur result Negative N ormal (applies to non-numeric results) [facility] Cocaine Screen,Urine Negative Normal (applies to non-num charissa results) [facility] Methadone Screen,Urine Negative Normal (applies to non-n umeric results) [facility] Cannabinoid Screen, Ur Negative Normal (applies to non-n umeric results) [facility] Therapeutic Drug Ranges for Emergency an d Rehabilitation Threshold Levels (ng/mL) Cocaine 300 Opiates 300 Cannabinoids 50 Barbiturates 200 Benzodiazepine 200 Methadone 300 Amphetamines 1000 All positive findings are presumptive and unconfirmed. Confirmation of positive results are performed only at request of provider. Unconfirmed results must not be used for non-medical purposes (i.e. pre-employment and legal purposes) ID Date Data Source [id number] 02/23/2021 11:05:00 AM EDT [facility] Name Value Range Interpretation Code Description Data Maggie rce(s) Supporting Document(s) Respiratory specimen severe acute respir atory syndrome coronavirus 2 (SARS-CoV-2) RNA Not Detected [facility] This lab was ordered by [facility] alyssa and reported by [facility]. ID Date Data Source [id number] 02/23/2021 02:09:[address] [facility] Manual entry verified by Bruno Pickens 02/23/21 1402 Negative results do not preclude SARS-CoV-2 infection and should not be used as the sole basis for treatment or other patient management decisions. Negative results must be combined with clinical observations, patient history, and epidemiological information. Testing was performed using the [employer] real-time nested multiplexed PCR Respiratory Panel 2.1 [...] be found at the following links: Patients: https://www.fda.gov/media/710591/download Healthcare Providers: https://www.fda.gov/media/112026/download THIS IS A STATE REPORTABLE COMMUNICABLE DISEASE. Test Performed By: [facility] [address] [place] [address] Director: Stacy Benz MD Methodology: Multiplexed PCR Name Value Range Interpretation Code Description Data Maggie rce(s) Supporting Document(s) ID Date Data Source [id number] 02/23/2021 11:02:00 AM EDT [facility] Name Value Range Interpretation Code Description Data Maggie rce(s) Supporting Document(s) Respiratory specimen severe acute respir atory syndrome coronavirus 2 (SARS-CoV-2) RNA Negative (qualifier value) [facility] This lab was ordered by [facility] alyssa and reported by [facility]. ID Date Data Source [id number] 02/23/2021 11:42:[address] [facility] First test? NOEmployed in healthcare? NOSymptomatic per CDC? NOHospitalized? NOICU? NOResident in congregated care? ex mcfp, AR[facility] NO? NONegative results should be treated [...] Certificate of Accreditation. Factsheets for healthcare providers: https://www.fda.gov/media/449570/download Factsheets for patients: https://www.fda.gov/media/924422/download The [employer] NOW Instrument is a rapid molecular in vitro diagnostic test utilizing an isothermal nucleic acid amplification technology intended for the qualitative detection of nucleic acid from the SARS-CoV-2 viral RNA. THIS IS A STATE REPORTABLE COMMUNICABLE DISEASE. Manual entry verified by Bruno Pickens 02/23/21 1142 Test Performed By: [facility] [address] [place], [place] [id number] Director: Stacy Benz MD Name Value Range Interpretation Code Description Data Maggie rce(s) Supporting Document(s) ID Date Data Source [id number] 02/23/2021 11:19:[address] [facility] Name Value Range Interpretation Code Description Data Maggie rce(s) Supporting Document(s) LAB Glucose,Fingerstick 106 mg/dL 70-110 Normal ( applies to non-numeric results) [facility] ID Date Data Source [id number] 02/22/2021 10:53:[address] [facility] Name Value Range Interpretation Code Description Data Maggie rce(s) Supporting Document(s) [place] 0.60-1.20 Below low normal [facility] ID Date Data Source [id number] 02/14/2021 11:47:[address] [facility] Name Value Range Interpretation Code Description Data Maggie rce(s) Supporting Document(s) [place] 0.60-1.20 Below low normal [facility] ID Date Data Source [id number] 03/13/2021 04:43:[address] [facility] Name Value Range Interpretation Code Description Data Maggie rce(s) Supporting Document(s) Hepatitis C Antibody Screen Negative Normal (appli es to non-numeric results) [facility] Supplemental testing for HCV RNA is orde red to rule out active HCV infection. Nmlgxe-uz-vstvbi ratio is >=8.00. Test Performed by: [place] [address]: Ruben Cohen M.D. Ph.D.; CLIA# [id number] THIS IS A STATE REPORTABLE COMMUNICABLE DISEASE. Hep C Virus Qnt (Rfx'd) 322516 IU/mL Undetected Normal ( applies to non-numeric results) [facility] Result in log IU/mL is 5.05. ---------ADDITIONAL INFORMATION The quantification range of this assay is 15 to 100,000,000 IU/mL (1.18 log to 8.00 log IU/mL). Testing was performed using the iftikhar HCV test ([employer] with the iftikhar 6800 System. Test Performed by: [place] [address]: Ruben Cohen M.D. Ph.D.; CLIA# [id number] THIS IS A STATE REPORTABLE COMMUNICABLE DISEASE. ID Date Data Source [id number] 02/14/2021 10:10:[address] [facility] Name Value Range Interpretation Code Description Data Maggie rce(s) Supporting Document(s) QFTB QuantiFERON-TB Gold+ res Negative No rmal (applies to non-numeric results) [facility] No interferon-gamma response to M. [...] res Normal (applies to non- numeric results) [facility] QFTB TB2 Ag min Nil res Normal (applies to non- numeric results) [facility] QFTB Mitogen minus Nil result Normal (applies t o non-numeric results) [facility] QFTB Nil result Normal (applies to non-numeric results) [facility] Test Performed by: [facility] [place] [address]: Ruben Cohen M.D. Ph.D.; CLIA# [id number] ID Date Data Source [id number] 02/10/2021 02:07:[address] [facility] Value Range Interpretation Code Description Data Maggie rce(s) Supporting Document(s) ID Date Data Source [id number] 02/10/2021 02:07:00 PM EDT [facility] Name Value Range Interpretation Code Description Data Maggie rce(s) Supporting Document(s) Hep C Ab-T Test Nonreactive [facility] Results called 02/10/21 1404, MICHAELA BARRETO read [...] be requested by the physician if necessary. ([facility] MMWR No RR-3. 2002). ID Date Data Source [id number] 02/10/2021 02:07:[address] [facility] Name Value Range Interpretation Code Description Data Maggie rce(s) Supporting Document(s) ID Date Data Source [id number] 02/10/2021 02:07:[address] [facility] Name Value Range Interpretation Code Description Data Maggie rce(s) Supporting Document(s) Vitamin D,Total (25OH) 30.0-100.0 Below low normal [facility] Reference Range: <10 ng/mL: Deficien t 10-30 ng/mL: Insufficient 30-100 ng/mL: Sufficient >100 ng/mL: Toxicity possible ID Date Data Source [id number] 02/10/2021 02:07:[address] [facility] Name Value Range Interpretation Code Description Data Maggie rce(s) Supporting Document(s) ID Date Data Source [id number] 02/10/2021 12:27:[address] [facility] Name Value Range Interpretation Code Description Data Maggie rce(s) Supporting Document(s) Sodium 137 mmol/L 137-145 Normal (applies to non-numeric resul ts) [facility] Potassium 3.5-5.1 Normal (applies to non-numeric resul ts) [facility] Chloride 107 mmol/L 98-112 Normal (applies to non-numeric resul ts) [facility] Carbon Dioxide CO2 22.0-33.0 Normal (applies to non-numer ic results) [facility] Anion Gap 4.0-11.0 Normal (applies to non-numeric resul ts) [facility] BUN 16 mg/dL 7-17 Normal (applies to non-numeric resul ts) [facility] Creatinine 0.70-1.20 Normal (applies to non-numeric resul ts) [facility] GFR 79 mL/min >60 Normal (applies to non-numeric resul ts) [facility] Result based on MDRD formula. Glucose Level 101 mg/dL 74-99 Above high normal [facility] The reference range is only applicable w hen fasting. Calcium-Uncorrected 8.4-10.2 Normal (applies to non-nume renan results) [facility] Corrected Calcium 8.4-10.2 Normal (applies to non-numeri c results) [facility] Bilirubin,Total 0.2-1.3 Normal (applies to non-numeric results) [facility] Bilirubin,Direct 0.0-0.3 Normal (applies to non-numeric results) [facility] SGOT(AST) 41 U/L 14-36 Above high normal [facility] SGPT(ALT) 56 U/L 9-52 Above high normal [facility] Alkaline Phosphatase 81 U/L 38-126 Normal (applies to non-num charissa results) [facility] can increase Alkaline Phosp le vels up to 2 times the normal adult value. Normal values for children and adolescents are 2 to 3 times the normal adult value. CPK 775 U/L 26-[address] [facility] Total Protein 6.3-8.2 Normal (applies to non-numeric re sults) [facility] Albumin 3.5-5.0 Normal (applies to non-numeric resul ts) [facility] Thyroid Stimulate Hormone TSH 0.358-3.740 No rmal (applies to non-numeric results) [facility] ID Date Data Source [id number] 02/10/2021 12:27:[address] [facility] Name Value Range Interpretation Code Description Data Maggie rce(s) Supporting Document(s) Magnesium 1.80-2.40 Normal (applies to non-numeric resul ts) [facility] ID Date Data Source [id number] 02/10/2021 12:27:[address] [facility] Name Value Range Interpretation Code Description Data Maggie rce(s) Supporting Document(s) C-Reactive Protein,Wide Range <3.00 Normal (applies t o non-numeric results) [facility] ID Date Data Source [id number] 02/10/2021 12:27:[address] [facility] Name Value Range Interpretation Code Description Data Maggie rce(s) Supporting Document(s) [place] 0.60-1.20 Below low normal [facility] ID Date Data Source [id number] 02/10/2021 11:52:[address] [facility] Name Value Range Interpretation Code Description Data Maggie rce(s) Supporting Document(s) White Blood Count 4.8-10.8 Normal (applies to non-numeri c results) [facility] Red Blood Count 3.68-5.22 Below low normal [facility] Hemoglobin 11.2-15.7 Below low normal [facility] Hematocrit 34.1-44.9 Below low normal [facility] Mean Corpuscular Volume 81-99 Normal (applies to non- numeric results) [facility] Mean Corpuscular Hemoglobin 27.0-33.0 Normal (appli es to non-numeric results) [facility] Mean Corpuscular HGB Conc 32.0-36.0 Normal (applies to no n-numeric results) [facility] Red Cell Distribution Width 11.5-14.5 Normal (appli es to non-numeric results) [facility] Platelet Count 310 X10 3/uL 130-450 Normal (applies to non-numeric results) [facility] Mean Platelet Volume 9.5-12.7 Normal (applies to non-num charissa results) [facility] Imm Grans% (AUTO) 0 % 0-2 Normal (applies to non-numeri c results) [facility] Neutrophils % (AUTO) 52 % 40-75 Normal (applies to non-num charissa results) [facility] Lymphocytes % (AUTO) 32 % 21-46 Normal (applies to non-num charissa results) [facility] Monocytes % (AUTO) 11 % 5-12 Normal (applies to non-numer ic results) [facility] Eosinophils % (AUTO) 4 % 1-5 Normal (applies to non-num charissa results) [facility] Basophils % (AUTO) 1 % 0-1 Normal (applies to non-numer ic results) [facility] Imm Grans# (AUTO) 0.0-0.5 Normal (applies to non-numeri c results) [facility] Neutrophils # (AUTO) 1.5-8.1 Normal (applies to non-num charissa results) [facility] Lymphocytes # (AUTO) 1.0-3.1 Normal (applies to non-num charissa results) [facility] Monocytes # (AUTO) 0.2-1.3 Normal (applies to non-numer ic results) [facility] Eosinophils# (AUTO) 0.0-0.5 Normal (applies to non-nume renan results) [facility] Basophils # (AUTO) 0.0-0.1 Normal (applies to non-numer ic results) [facility] ID Date Data Source [id number] 02/09/2021 10:00:00 AM EDT [facility] Name Value Range Interpretation Code Description Data Maggie rce(s) Supporting Document(s) Respiratory specimen severe acute respir atory syndrome coronavirus 2 (SARS-CoV-2) RNA Negative (qualifier value) [facility] This lab was ordered by [facility] alyssa and reported by [facility]. ID Date Data Source [id number] 02/09/2021 10:42:[address] [facility] Negative results should be treated as [...] Certificate of Accreditation. Factsheets for healthcare providers: https://www.fda.gov/media/242760/download Factsheets for patients: https://www.fda.gov/media/111971/download The ID NOW Instrument is a rapid molecular in vitro diagnostic test utilizing an isothermal nucleic acid amplification technology intended for the qualitative detection of nucleic acid from the SARS-CoV-2 viral RNA. THIS IS A STATE REPORTABLE COMMUNICABLE DISEASE. Manual entry verified by Bruno Pcikens 02/09/21 1042 Test Performed By: [facility] [address] [place] [address] Director: Stacy Benz MD Name Value Range Interpretation Code Description Data Maggie rce(s) Supporting Document(s) ID Date Data Source [id number] 02/09/2021 11:46:[address] [facility] Name Value Range Interpretation Code Description Data Maggie rce(s) Supporting Document(s) Opiate Screen,Urine Negative Normal (applies to non-nume renan results) [facility] Amphetamine Screen,Urine Negative Normal (applies to non -numeric results) [facility] Benzodiazepines Scrn,Ur result Negative N ormal (applies to non-numeric results) [facility] Cocaine Screen,Urine Negative Normal (applies to non-num charissa results) [facility] Methadone Screen,Urine Negative Normal (applies to non-n umeric results) [facility] Cannabinoid Screen, Ur Negative Normal (applies to non-n umeric results) [facility] Therapeutic Drug Ranges for Emergency [...] and legal purposes) ID Date Data Source [id number] 02/09/2021 11:39:[address] [facility] Name Value Range Interpretation Code Description Data Maggie rce(s) Supporting Document(s) Color,Urine Yellow Normal (applies to non-numeric resu lts) [facility] Clarity,Urine Clear Normal (applies to non-numeric re sults) [facility] Specific [place],Urine 1.001-1.030 Normal (applies to non- numeric results) [facility] PH,Urine 5.0-8.0 Normal (applies to non-numeric resul ts) [facility] Protein,Urine Negative Normal (applies to non-numeric re sults) [facility] Glucose,Urine (UA) Negative Normal (applies to non-numer ic results) [facility] Ketones,Urine Negative Normal (applies to non-numeric re sults) [facility] Blood,Urine Negative Normal (applies to non-numeric resu lts) [facility] Bilirubin,Urine Negative Normal (applies to non-numeric results) [facility] Urobilinogen,Urine Norm 0.2-1 Normal (applies to non-numer ic results) [facility] Leukocyte Esterase,Urine Negative [facility] Nitrite,Urine Negative Normal (applies to non-numeric re sults) [facility] ID Date Data Source [id number] 02/09/2021 11:39:[address] [facility] Name Value Range Interpretation Code Description Data Maggie rce(s) Supporting Document(s) RBC,Auto Urine 0-2 Normal (applies to non-numeric r esults) [facility] WBC Urine Auto 0-10 Normal (applies to non-numeric r esults) [facility] Casts,Hyaline,Urine Auto 0-2 Normal (applies to non -numeric results) [facility] Bacteria Urine Auto None Seen Normal (applies to non-nume renan results) [facility] Epithelial Cell Ur Auto None-Few Normal (applies to non- numeric results) [facility] ID Date Data Source [id number] 02/09/2021 11:39:[address] [facility] Name Value Range Interpretation Code Description Data Maggie rce(s) Supporting Document(s) Urine HCG Negative Normal (applies to non-numeric resul ts) [facility] ID Date Data Source [id number] 10/29/2020 05:15:00 PM EST [facility] Name Value Range Interpretation Code Description Data Maggie rce(s) Supporting Document(s) Respiratory pathogens identified [Type] in Nasopharynx by Probe and target amplification method SARS-CoV-2 (COVID 19) [facility] This lab was ordered by [facility] a nd reported by [facility]. Procedure Social History Code Duration Value Status Description Data Source(s ) Smoking 08/25/2021 12:00:00 AM EDT Unknown if ever smoked comp leted Unknown if ever smoked [facility] ([facility]) Smoking 08/11/2021 12:00:00 AM EDT Unknown if ever smoked comp leted Unknown if ever smoked [facility] ([facility]) Smoking 07/07/2021 12:00:00 AM EDT Unknown if ever smoked comp leted Unknown if ever smoked [facility] ([facility]) Smoking 06/23/2021 12:00:00 AM EDT Unknown if ever smoked comp leted Unknown if ever smoked [facility] ([facility]) Smoking 06/09/2021 12:00:00 AM EDT Unknown if ever smoked comp leted Unknown if ever smoked [facility] ([facility]) Smoking 05/12/2021 12:00:00 AM EDT Never Smoker completed Never S moker eCW1 ([facility]) Smoking 05/12/2021 12:00:00 AM EDT Never Smoker completed Never S moker eCW1 ([facility]) Smoking 05/12/2021 12:00:00 AM EDT Never Smoker completed Never S moker eCW1 ([facility]) Smoking 05/05/2021 12:00:00 AM EDT Unknown if ever smoked comp leted Unknown if ever smoked [facility] ([facility]) Smoking 04/28/2021 12:00:00 AM EDT Never Smoker completed Never S moker eCW1 ([facility]) Smoking 04/28/2021 12:00:00 AM EDT Unknown if ever smoked comp leted Unknown if ever smoked [facility] ([facility]) Smoking 04/28/2021 12:00:00 AM EDT Never Smoker completed Never S moker eCW1 ([facility]) Smoking 03/30/2021 12:00:00 AM EDT Unknown if ever smoked comp leted Unknown if ever smoked [facility] ([facility]) Smoking 03/26/2021 12:00:00 AM EDT Never Smoker completed Never S moker eCW1 ([facility]) Smoking 03/26/2021 12:00:00 AM EDT Never Smoker completed Never S moker eCW1 ([facility]) Smoking 03/26/2021 12:00:00 AM EDT Never Smoker completed Never S moker eCW1 ([facility]) Smoking 03/26/2021 12:00:00 AM EDT Never Smoker completed Never S moker eCW1 ([facility]) Smoking 03/26/2021 12:00:00 AM EDT Never Smoker completed Never S moker eCW1 ([facility]) Smoking 03/23/2021 12:00:00 AM EDT Unknown if ever smoked comp leted Unknown if ever smoked [facility] ([facility]) Smoking 03/11/2021 12:00:00 AM EDT Unknown if ever smoked comp leted Unknown if ever smoked [facility] ([facility]) Smoking 02/09/2021 12:00:00 AM EDT Unknown if ever smoked comp leted Unknown if ever smoked [facility] ([facility]) Smoking 01/31/2021 12:00:00 AM EDT Unknown if ever smoked comp leted Unknown if ever smoked [facility] ([facility]) Smoking 01/05/2021 12:00:00 AM EST Unknown if ever smoked comp leted Unknown if ever smoked [facility] ([facility]) Smoking 12/24/2020 12:00:00 AM EST Unknown if ever smoked comp leted Unknown if ever smoked [facility] ([facility]) Smoking 12/21/2020 12:00:00 AM EST Unknown if ever smoked comp leted Unknown if ever smoked [facility] ([facility]) Smoking 12/15/2020 12:00:00 AM EST Unknown if ever smoked comp leted Unknown if ever smoked [facility] ([facility]) Smoking 11/30/2020 12:00:00 AM EST Unknown if ever smoked comp leted Unknown if ever smoked [facility] ([facility]) Smoking 11/10/2020 12:00:00 AM EST Unknown if ever smoked comp leted Unknown if ever smoked [facility] ([facility]) Smoking 11/08/2020 12:00:00 AM EST Unknown if ever smoked comp leted Unknown if ever smoked [facility] ([facility]) Vital Signs ID Date Data Source [id number] Name Value Range Interpretation Code Description Data Source(s) Body weight 189 [lb_av] 189 [lb_av] eCW1 ([facility]) Body height 67 [in_i] 67 [in_i] W1 ([facility]) Body mass index (BMI) [Ratio] 29.60 kg/m2 29.60 kg/m2 W1 ([facility]) Heart rate 115 /min 115 /min W1 ([facility]) Respiratory rate 18 /min 18 /min W1 ([facility]) Body temperature 97.9 [degF] 97.9 [degF] eCW1 ( [facility]) Systolic blood pressure 104 mm[Hg] 104 mm[Hg] e CW1 ([facility]) Diastolic blood pressure 72 mm[Hg] 72 mm[Hg] eCW1 ([facility]) Body weight 172.00 [lb_av] 172.00 [lb_av] [facility] Body height 0.00 in Normal (applies to non-numeric resu lts) 0.00 in [facility] ([facility]) Body weight Measured 0.00 lbs Normal (applies to n on-numeric results) 0.00 lbs [facility] ([facility]) Body mass index (BMI) [Ratio] 0.00 kg/m2 No rmal (applies to non-numeric results) 0.00 kg/m2 [facility] ([facility]) Systolic blood pressure 0 mm[Hg] Normal (applies t o non-numeric results) 0 mm[Hg] [facility] ([facility]) Diastolic blood pressure 0 mm[Hg] Normal (applies to non-numeric results) 0 mm[Hg] [facility] ([facility]) Systolic blood pressure 115 mm[Hg] 115 mm[Hg] M EDENT ([facility]) Diastolic blood pressure 73 mm[Hg] 73 mm[Hg] [facility] Heart rate 62 /min 62 /min MEDENT ([facility]) Respiratory rate 18 /min 18 /min [facility] ( [facility]) Body temperature 97.8 [degF] 97.8 [degF] [facility] ([facility]) Body weight 148.00 [lb_av] 148.00 [lb_av] MEDEN T ([facility]) ID Date Data Source [id number] 03/13/2021 04:43:00 PM EDT [facility] Name Value Range Interpretation Code Description Data Source(s) Weight Measurement Method 1 1 [facility] Weight (Calculated Kilograms) 84.82 84.82 [facility] Weight 3104 3104 [facility] Temperature Source 7 7 [facility] Temperature 96.2 96.2 [facility] Respiratory Effort 1 1 [facility] Respiratory Rate 16 16 [facility] Pulse Assessment Method 4 4 [facility] Pulse Rate 93 93 [facility] Height (Calculated Centimeters) 167.64 167. 64 [facility] Height 66 66 [facility] Blood Pressure 122/82 122/82 [facility] Body Mass Index (BMI) 30.2 30.2 [facility] Weight Measurement Method 1 1 [facility] Weight (Calculated Kilograms) 84.82 84.82 [facility] Weight 3104 3104 [facility] Temperature Source 7 7 [facility] Temperature 96.2 96.2 [facility] Respiratory Effort 1 1 [facility] Respiratory Rate 16 16 [facility] Pulse Assessment Method 4 4 [facility] Pulse Rate 93 93 [facility] Height (Calculated Centimeters) 167.64 167. 64 [facility] Height 66 66 [facility] Blood Pressure 122/82 122/82 [facility] Body Mass Index (BMI) 30.2 30.2 [facility] Weight Measurement Method 1 1 [facility] Weight (Calculated Kilograms) 84.82 84.82 [facility] Weight 2992 2992 [facility] Temperature Source 7 7 [facility] Temperature 97.6 97.6 [facility] Respiratory Effort 1 1 [facility] Respiratory Rate 15 15 [facility] Pulse Assessment Method 4 4 [facility] Pulse Rate 86 86 [facility] Height (Calculated Centimeters) 167.64 167. 64 [facility] Height 66 66 [facility] Blood Pressure 99/60 99/60 [facility] Body Mass Index (BMI) 30.2 30.2 [facility] Weight Measurement Method 1 1 [facility] Weight (Calculated Kilograms) 84.82 84.82 [facility] Weight 2992 2992 [facility] Temperature Source 7 7 [facility] Temperature 98.3 98.3 [facility] Respiratory Effort 1 1 [facility] Respiratory Rate 16 16 [facility] Pulse Assessment Method 4 4 [facility] Pulse Rate 87 87 [facility] Height (Calculated Centimeters) 167.64 167. 64 [facility] Height 66 66 [facility] Blood Pressure 99/60 99/60 [facility] Body Mass Index (BMI) 30.2 30.2 [facility] Weight (Calculated Kilograms) 61.69 61.69 [facility] Height (Calculated Centimeters) 170.18 170. 18 [facility] Body Mass Index (BMI) 21.2 21.2 [facility] Weight (Calculated Kilograms) 61.69 61.69 [facility] Height (Calculated Centimeters) 170.18 170. 18 [facility] Body Mass Index (BMI) 21.2 21.2 [facility] Patient Treatment Plan of Care Planned Activity Planned Date Details Description Data Source (s) Ibuprofen 400 MG Oral Tablet 03/15/2021 12:00:00 AM EDT eCW1 ([facility]) Acetaminophen 500 MG Oral Tablet 03/15/2021 12:00:00 AM EDT eCW1 ([facility]) Mupirocin 0.02 MG/MG Topical Ointment 03/15/2021 12:00:00 AM EDT eCW1 ([facility]) Ibuprofen 400 MG Oral Tablet 03/15/2021 12:00:00 AM EDT eCW1 ([facility]) Ibuprofen 400 MG Oral Tablet 03/15/2021 12:00:00 AM EDT eCW1 ([facility]) Acetaminophen 500 MG Oral Tablet 03/15/2021 12:00:00 AM EDT eCW1 ([facility]) Mupirocin 0.02 MG/MG Topical Ointment 03/15/2021 12:00:00 AM EDT eCW1 ([facility]) Acetaminophen 500 MG Oral Tablet 03/15/2021 12:00:00 AM EDT eCW1 ([facility]) Mupirocin 0.02 MG/MG Topical Ointment 03/15/2021 12:00:00 AM EDT eCW1 ([facility]) Ibuprofen 400 MG Oral Tablet 03/15/2021 12:00:00 AM EDT eCW1 ([facility]) Acetaminophen 500 MG Oral Tablet 03/15/2021 12:00:00 AM EDT eCW1 ([facility]) Mupirocin 0.02 MG/MG Topical Ointment 03/15/2021 12:00:00 AM EDT eCW1 ([facility]) Ibuprofen 400 MG Oral Tablet 03/15/2021 12:00:00 AM EDT eCW1 ([facility]) Acetaminophen 500 MG Oral Tablet 03/15/2021 12:00:00 AM EDT eCW1 ([facility]) Mupirocin 0.02 MG/MG Topical Ointment 03/15/2021 12:00:00 AM EDT eCW1 ([facility])
[2021-10-08 08:39] LABS: BASO % 0.4 % (0.0-1.0); EOS # 0.9 10^3/uL (0.0-0.5); EOS % 11.6 % (0.0-3.0); HEMATOCRIT 31.2 % (36.0-47.0); LYMPH # 2.3 10^3/uL (1.5-5.0); LYMPH % 31.7 % (24.0-44.0); MEAN CORPUSCULAR HEMOGLOBIN 29.2 pg (27.0-33.0); MEAN CORPUSCULAR HGB CONC 32.1 g/dl (32.0-36.5); MEAN CORPUSCULAR VOLUME 91.2 fl (80.0-96.0); MONO # 0.8 10^3/uL (0.0-0.8); MONO % 11.4 % (2.0-8.0); NEUTROPHILS # 3.3 10^3/uL (1.5-8.5); NEUTROPHILS % 44.6 % (36.0-66.0); PLATELET COUNT, AUTOMATED 256 10^3/uL (150-450); RED BLOOD COUNT 3.42 10^6/uL (4.00-5.40); WHITE BLOOD COUNT 7.4 10^3/uL (4.0-10.0)
[2021-10-08 09:03] LABS: ALBUMIN 3.3 GM/DL (3.2-5.2); ALT/SGPT 29 U/L (12-78); BILIRUBIN,DIRECT 0.1 MG/DL (0.0-0.2); BILIRUBIN,TOTAL 0.3 MG/DL (0.2-1.0); BLOOD UREA NITROGEN 12 MG/DL (7-18); CALCIUM LEVEL 8.7 MG/DL (8.5-10.1); CARBON DIOXIDE LEVEL 25 MEQ/L (21-32); CHLORIDE LEVEL 107 MEQ/L (98-107); GLOMERULAR FILTRATION RATE > 60.0 (>60); GLUCOSE, FASTING 83 MG/DL (70-100); LIPASE 125 U/L (73-393); POTASSIUM SERUM 3.5 MEQ/L (3.5-5.1); SODIUM LEVEL 138 MEQ/L (136-145); TOTAL PROTEIN 7.3 GM/DL (6.4-8.2)
[2021-10-08 09:06] LABS: HCG, SERUM QUALITATIVE NEGATIVE (NEGATIVE); MONO SCRN NEGATIVE (NEGATIVE)
--- NOTE | 2021-10-08 09:52 | REP ---
INDICATION: sob. COMPARISON: Comparison radiograph August 30, 2021. TECHNIQUE: PA and lateral views.. FINDINGS: The lungs are well inflated and free of infiltrate. The pleural angles are sharp. The heart size is normal. Pulmonary vasculature is not increased. No significant bony abnormality is seen. IMPRESSION: Negative chest x-ray. <Electronically signed by Abraham Brooks > 10/08/21 0949
[2021-10-08 10:10] VITALS: BP 123/74
== END 2021-10-08 11:21 | disposition home or self-care (01) ==
LOC: M ED 03:33
DX: J02.9 Acute pharyngitis, unspecified (principal); R06.02 Shortness of breath; B34.8 Other viral infections of unspecified site; D64.9 Anemia, unspecified; Z91.018 Allergy to other foods; Z91.040 Latex allergy status; F17.210 Nicotine dependence, cigarettes, uncomplicated; F19.10 Other psychoactive substance abuse, uncomplicated

== ENCOUNTER 2023-01-16 18:17 | Inpatient (IN) | payer MEDICAID, OTHER ==
[~2023-01-16] VITALS: Ht 167.6 cm; Wt 63.7 kg
[2023-01-16] MEDS ORDERED: NS 500 ML IV ONE ×2 (20:40→23:00)
[2023-01-16 21:30] LABS: BASO % 0.3 % (0.0-1.0); EOS % 0.1 % (0.0-3.0); HEMOGLOBIN 11.4 g/dl (12.0-15.5); LYMPH # 1.1 10^3/uL (1.5-5.0); LYMPH % 7.6 % (24.0-44.0); MEAN CORPUSCULAR HEMOGLOBIN 29.4 pg (27.0-33.0); MEAN CORPUSCULAR HGB CONC 32.6 g/dl (32.0-36.5); MEAN CORPUSCULAR VOLUME 90.2 fl (80.0-96.0); MONO % 11.4 % (2.0-8.0); NEUTROPHILS # 11.7 10^3/uL (1.5-8.5); NEUTROPHILS % 79.6 % (36.0-66.0); PLATELET COUNT, AUTOMATED 355 10^3/uL (150-450); RED BLOOD COUNT 3.88 10^6/uL (4.00-5.40); WHITE BLOOD COUNT 14.7 10^3/uL (4.0-10.0)
[2023-01-16] MEDS ORDERED: MORPHINE 4 MG/ML 1ML VIAL IV ONE (21:30)
[2023-01-16 21:43] LABS: INR 1.13; PROTHROMBIN TIME 14.7 SECONDS (12.5-14.5)
[2023-01-16 21:44] LABS: PARTIAL THROMBOPLASTIN TIME 30.5 SECONDS (24.8-34.2)
[2023-01-16 21:58] LABS: MONO # 1.7 10^3/uL (0.0-0.8)
[2023-01-16 22:01] LABS: CPK CREATINE PHOSPHOKINASE 69 U/L (34-145)
[2023-01-16 22:05] LABS: ALBUMIN 3.2 G/DL (3.2-5.2); ALKALINE PHOSPHATASE 126 U/L (46-116); ALT/SGPT 13 U/L (7.0-40); AST/SGOT 22 U/L (<34); BILIRUBIN,DIRECT 0.2 MG/DL (<0.4); BILIRUBIN,TOTAL 0.5 MG/DL (0.3-1.2); BLOOD UREA NITROGEN 10 MG/DL (9-23); CALCIUM LEVEL 8.7 MG/DL (8.5-10.1); CARBON DIOXIDE LEVEL 27 MMOL/L (20-31); CHLORIDE LEVEL 96 MMOL/L (98-107); CK-MB VALUE MASS < 1.0 NG/ML (<3.6); GLOMERULAR FILTRATION RATE > 60.0 (>58); GLUCOSE, FASTING 99 MG/DL (60-100); MB/CK RELATIVE INDEX 1.44 (< OR =4); POTASSIUM SERUM 4.3 MMOL/L (3.5-5.1); SODIUM LEVEL 131 MMOL/L (136-145); TOTAL PROTEIN 8.2 G/DL (5.7-8.2)
[2023-01-16] MEDS ORDERED: PIPERACILLIN/TAZOBACTAM SOD 4.5 GM in D5W MINI-BAG PLUS 50 ML IV ONE (22:05)
[2023-01-16] MEDS ORDERED: CIPRODEX OTIC SUSP 7.5ML AS ONE (22:20)
[2023-01-17] MEDS ORDERED: ACET-907 PO (00:40)
[2023-01-17] MEDS ORDERED: CETI10TA4 PO (00:40)
[2023-01-17] MEDS: KETOROLAC 30 MG/ML 1ML VIAL IV PRN ×3 (01:24→18:31)
[2023-01-17] MEDS: NS 1,000 ML IV SCH ×3 (01:26→18:30)
[2023-01-17 01:30] VITALS: BP 116/79
[2023-01-17] MEDS: OFLOXACIN 0.3 % (OCUFLOX) OPTH SOL 5ML OD SCH ×5 (01:47→20:07)
[2023-01-17] MEDS: PIPERACILLIN/TAZOBACTAM SOD 4.5 GM in D5W MINI-BAG PLUS 50 ML IV SCH ×4 (03:30→21:39)
[2023-01-17 06:20] LABS: HEMOGLOBIN 10.6 g/dl (12.0-15.5); MEAN CORPUSCULAR HEMOGLOBIN 29.5 pg (27.0-33.0); MEAN CORPUSCULAR HGB CONC 32.1 g/dl (32.0-36.5); MEAN CORPUSCULAR VOLUME 91.9 fl (80.0-96.0); PLATELET COUNT, AUTOMATED 301 10^3/uL (150-450); RED BLOOD COUNT 3.59 10^6/uL (4.00-5.40)
[2023-01-17 06:55] LABS: ALBUMIN 2.7 G/DL (3.2-5.2); ALKALINE PHOSPHATASE 113 U/L (46-116); ALT/SGPT 15 U/L (7.0-40); AST/SGOT 22 U/L (<34); BILIRUBIN,TOTAL 0.3 MG/DL (0.3-1.2); BLOOD UREA NITROGEN 11 MG/DL (9-23); CARBON DIOXIDE LEVEL 23 MMOL/L (20-31); CHLORIDE LEVEL 101 MMOL/L (98-107); CREATININE FOR GFR 0.88 MG/DL (0.55-1.30); GLOMERULAR FILTRATION RATE > 60.0 (>58); GLUCOSE, FASTING 136 MG/DL (60-100); MAGNESIUM LEVEL 1.8 MG/DL (1.8-2.4); POTASSIUM SERUM 3.8 MMOL/L (3.5-5.1); SODIUM LEVEL 133 MMOL/L (136-145); TOTAL PROTEIN 7.2 G/DL (5.7-8.2)
[2023-01-17 07:12] VITALS: BP 100/55
[2023-01-17] MEDS ORDERED: HOME MED LIST COMPLETE! XX SCH (08:10)
[2023-01-17] MEDS: CIPRODEX OTIC SUSP 7.5ML AS SCH ×2 (10:13→20:07)
[2023-01-17] MEDS: ENOXAPARIN 40MG/0.4ML SYRINGE (J1650 PER 10MG) SC SCH (10:14)
[2023-01-17] MEDS: ACETAMINOPHEN TAB 650MG DOSE (2X325MG) PO PRN ×3 (10:26→21:38)
[2023-01-17 14:00] VITALS: BP 94/63
[2023-01-17] MEDS ORDERED: NS 500 ML IV ONE (20:00)
[2023-01-17 20:04] VITALS: BP 100/68
[2023-01-17] MEDS ORDERED: VANCOMYCIN HCL 750 MG, VIAL MATE ADAPTER 1 EACH in D5W 250 ML IV ONE (23:00)
[2023-01-18] MEDS ORDERED: VANCOMYCIN HCL 500 MG in D5W MINI-BAG PLUS 100 ML IV ONE ×2
[2023-01-18 01:05] VITALS: BP 98/58
[2023-01-18 04:21] VITALS: BP 98/61
[2023-01-18] MEDS: PIPERACILLIN/TAZOBACTAM SOD 4.5 GM in D5W MINI-BAG PLUS 50 ML IV SCH ×4 (04:42→21:20)
[2023-01-18] MEDS: KETOROLAC 30 MG/ML 1ML VIAL IV PRN ×2 (04:43→18:50)
[2023-01-18 05:55] LABS: BASO % 0.5 % (0.0-1.0); EOS # 0.4 10^3/uL (0.0-0.5); EOS % 4.6 % (0.0-3.0); HEMATOCRIT 27.2 % (36.0-47.0); HEMOGLOBIN 8.7 g/dl (12.0-15.5); LYMPH # 1.6 10^3/uL (1.5-5.0); LYMPH % 18.7 % (24.0-44.0); MEAN CORPUSCULAR HEMOGLOBIN 29.7 pg (27.0-33.0); MEAN CORPUSCULAR VOLUME 92.8 fl (80.0-96.0); MONO # 1.4 10^3/uL (0.0-0.8); MONO % 16.5 % (2.0-8.0); NEUTROPHILS # 5.1 10^3/uL (1.5-8.5); NEUTROPHILS % 58.6 % (36.0-66.0); PLATELET COUNT, AUTOMATED 262 10^3/uL (150-450); RED BLOOD COUNT 2.93 10^6/uL (4.00-5.40); WHITE BLOOD COUNT 8.7 10^3/uL (4.0-10.0)
[2023-01-18 06:21] LABS: BLOOD UREA NITROGEN 14 MG/DL (9-23); CALCIUM LEVEL 7.6 MG/DL (8.5-10.1); CARBON DIOXIDE LEVEL 26 MMOL/L (20-31); CHLORIDE LEVEL 108 MMOL/L (98-107); CREATININE FOR GFR 0.74 MG/DL (0.55-1.30); GLOMERULAR FILTRATION RATE > 60.0 (>58); GLUCOSE, FASTING 123 MG/DL (60-100); POTASSIUM SERUM 3.9 MMOL/L (3.5-5.1); SODIUM LEVEL 140 MMOL/L (136-145)
[2023-01-18] MEDS: ENOXAPARIN 40MG/0.4ML SYRINGE (J1650 PER 10MG) SC SCH (10:46)
[2023-01-18] MEDS: valACYclovir HCL 500 MG TAB PO SCH ×3 (10:47→21:20)
[2023-01-18] MEDS: CIPRODEX OTIC SUSP 7.5ML AS SCH ×2 (10:48→21:21)
[2023-01-18] MEDS: OFLOXACIN 0.3 % (OCUFLOX) OPTH SOL 5ML OD SCH ×4 (10:48→21:21)
[2023-01-18] MEDS ORDERED: VANCOMYCIN HCL 1,000 MG, VIAL MATE ADAPTER 1 EACH in NS 250 ML IV SCH (11:00)
[2023-01-18 11:10] LABS: VANCOMYCIN RANDOM 12.6 UG/ML
[2023-01-18 11:25] LABS: HEPATITIS B SURFACE ANTIGEN NEGATIVE (NEGATIVE)
[2023-01-18 11:38] LABS: HIV 1&2 SCREEN CENTAUR NEGATIVE (NEGATIVE)
[2023-01-18 11:47] LABS: HEPATITIS B CORE ANTIBODY IGM NEGATIVE (NEGATIVE)
[2023-01-18] MEDS: ACETAMINOPHEN TAB 650MG DOSE (2X325MG) PO PRN (12:06)
[2023-01-18 12:41] LABS: HEPATITIS C VIRUS ABY INDEX > 11.0 INDEX (<0.8)
[2023-01-18 14:00] VITALS: BP 104/69
[2023-01-18] MEDS ORDERED: MIRALAX *UNIT DOSE* 17GM PACKET PO ONE (15:10)
[2023-01-18 15:29] LABS: GC DNA AMPLIFICATION NEGATIVE (NEGATIVE)
[2023-01-18] MEDS ORDERED: diphenhydrAMINE 25MG CAP PO ONE (19:15)
[2023-01-18 21:30] VITALS: BP 105/68
[2023-01-19] MEDS: KETOROLAC 30 MG/ML 1ML VIAL IV PRN ×2 (02:36→10:07)
[2023-01-19] MEDS: PIPERACILLIN/TAZOBACTAM SOD 4.5 GM in D5W MINI-BAG PLUS 50 ML IV SCH ×2 (03:32→10:04)
[2023-01-19 06:33] VITALS: BP 114/77
[2023-01-19 06:33] LABS: BASO % 0.4 % (0.0-1.0); EOS % 6.2 % (0.0-3.0); HEMATOCRIT 26.5 % (36.0-47.0); HEMOGLOBIN 8.4 g/dl (12.0-15.5); LYMPH % 28.4 % (24.0-44.0); MEAN CORPUSCULAR HEMOGLOBIN 29.1 pg (27.0-33.0); MEAN CORPUSCULAR HGB CONC 31.7 g/dl (32.0-36.5); MEAN CORPUSCULAR VOLUME 91.7 fl (80.0-96.0); MONO % 14.3 % (2.0-8.0); NEUTROPHILS % 49.6 % (36.0-66.0); PLATELET COUNT, AUTOMATED 294 10^3/uL (150-450); RED BLOOD COUNT 2.89 10^6/uL (4.00-5.40); WHITE BLOOD COUNT 7.5 10^3/uL (4.0-10.0)
[2023-01-19 06:34] LABS: EOS # 0.5 10^3/uL (0.0-0.5); LYMPH # 2.1 10^3/uL (1.5-5.0); MONO # 1.1 10^3/uL (0.0-0.8); NEUTROPHILS # 3.7 10^3/uL (1.5-8.5)
[2023-01-19 06:58] LABS: BLOOD UREA NITROGEN 11 MG/DL (9-23); CALCIUM LEVEL 7.8 MG/DL (8.5-10.1); CARBON DIOXIDE LEVEL 26 MMOL/L (20-31); CHLORIDE LEVEL 107 MMOL/L (98-107); CREATININE FOR GFR 0.86 MG/DL (0.55-1.30); GLOMERULAR FILTRATION RATE > 60.0 (>58); GLUCOSE, FASTING 87 MG/DL (60-100); POTASSIUM SERUM 3.9 MMOL/L (3.5-5.1); SODIUM LEVEL 139 MMOL/L (136-145)
[2023-01-19] MEDS ORDERED: MIRALAX *UNIT DOSE* 17GM PACKET PO SCH (09:00)
[2023-01-19] MEDS ORDERED: CALAMINE LOTION 177 ML BTL TOP PRN (09:15)
[2023-01-19] MEDS: valACYclovir HCL 500 MG TAB PO SCH (10:04)
[2023-01-19] MEDS: OFLOXACIN 0.3 % (OCUFLOX) OPTH SOL 5ML OD SCH (10:04)
[2023-01-19] MEDS: ENOXAPARIN 40MG/0.4ML SYRINGE (J1650 PER 10MG) SC SCH (10:05)
[2023-01-19] MEDS: CIPRODEX OTIC SUSP 7.5ML AS SCH (10:05)
[2023-01-19] MEDS ORDERED: CALALOT4 TOP (11:23)
[2023-01-19] MEDS ORDERED: CIPR7.5D2 AS (11:23)
[2023-01-19] MEDS ORDERED: AMOX875T2 PO (11:23)
[2023-01-19] MEDS ORDERED: VALA500T5 PO (11:23)
[2023-01-19] MEDS ORDERED: VALT1TAB PO (11:41)
[2023-01-21 07:07] LABS: HEPATITIS A IgG TOTAL Positive (Negative)
[2023-01-22 17:07] LABS: HSV-1 DNA Negative (Negative); HSV-2 DNA Negative (Negative)
== END 2023-01-19 13:21 | disposition home or self-care (01) | DRG 720 ==
LOC: M ED 18:17 → M ED INP 22:56 → M MSPAV 01-17 01:10
PROVIDERS: ADMIT Internal Medicine; ATTEND Internal Medicine
DX: A41.89 Other specified sepsis (principal); H10.9 Unspecified conjunctivitis; F41.8 Other specified anxiety disorders; E87.1 Hypo-osmolality and hyponatremia; F15.188 Other stimulant abuse with other stimulant-induced disorder; H92.12 Otorrhea, left ear; H60.92 Unspecified otitis externa, left ear; K59.00 Constipation, unspecified; L03.211 Cellulitis of face; B19.20 Unspecified viral hepatitis C without hepatic coma; Z20.822 Contact with and (suspected) exposure to COVID-19; Z79.899 Other long term (current) drug therapy; Z91.018 Allergy to other foods; Z91.040 Latex allergy status

== ENCOUNTER → 2024-03-18 | Outpatient (CLI) | payer OTHER, SELFPAY ==
[~2024-03-18] MED LIST changes: +ACET-907 PO; +AMOX875T2 PO; +CALALOT4 TOP; +CETI10TA4 PO; +CIPR7.5D2 AS; +VALA500T5 PO; +VALT1TAB PO
== END ==
LOC: M WHC 10:05
PROVIDERS: ATTEND Physician Assistant
DX: N63.21 Unspecified lump in the left breast, upper outer quadrant (principal); N60.11 Diffuse cystic mastopathy of right breast
CPT/HCPCS: 76641; 77066; G0279